=== PATIENT | female | born 1985 | race African-American/Black ===

== ENCOUNTER 2017-06-04 21:10 | Emergency (ER) | payer BC ==
[2017-06-04 21:16] VITALS: BMI 38.4
[2017-06-04] MEDS ORDERED: NS 1000 ML 1,000 ML IV ONE (22:03)
--- NOTE | 2017-06-04 22:03 | DR.GENAD ---
HPI - PCP Primary Care Physician: nfd - Complaint/Symptoms Chief Complaint:: pt states" i went to [facility] on sunday they said i had diverticulosis and gave me cipro flagyl and percocet but i'm still hurting and nauseaed" - Source History Provided: Patient - Mode of Arrival Mode of Arrival: Ambulatory - Timing Onset of Chief Complaint: 05/30/17 PMH - PMH Past Medical History: No Past Surgical History: Yes Surgical History: Cholecystectomy - Family History History of Family Medical Conditions: Yes Family Medical History: Diabetes Mellitus, Cancer, Hypertension - Social History Type of Tobacco Use: Cigars Does any household member use tobacco: No Alcohol Use: Occasionally Do you use any recreational Drugs:: No Lives With: Family Lives Where: Home - infectious screening In the last 2 months have you had wt loss of >10#?: NO Have you had fever, night sweats or hemotysis?: No Have you traveled outside the country in the last 6 months?: No Isolation: Standard ROS - Review of Systems Eyes: No Symptoms Reported ENTM: No Symptoms Reported Respiratoy: No Symptoms Reported Cardiovascular: No Symptoms Reported Gastrointestinal/Abdominal: No Symptoms Reported Genitourinary: No Symptoms Reported Neurological: No Symptoms Reported, Emotional Problems Musculoskeletal: No Symptoms Reported Integumentary: No Symptoms Reported Hematologic/Lymphatic: No Symptoms Reported Endocrine: No Symptoms Reported Psychiatric: No Symptoms Reported All Other Systems: Reviewed and Negative PE - Vital Signs Vitals: Temperature 100 F Pulse Rate [Right Brachial] 96 Pulse Rate 108 Respiratory Rate 16 Blood Pressure [Right Arm] 138/78 Blood Pressure 120/74 O2 Sat by Pulse Oximetry 100 - General Limitations: No Limitations, Language Barrier General Appearance: Alert, In No Apparent Distress - Head Head Exam: Normal Inspection, Atraumatic - Eyes Eye exam: Normal Appearance, PERRL - ENT ENT Exam: Normal Exam External Ear Exam: Normal External Inspection TM/Canal Exam: Bilateral Normal Nose Exam: Normal Nose Exam Mouth Exam: Normal Inspection Throat Exam: Normal Inspection - Chest Chest Inspection: Normal Inspection - Respiratory Respiratory Exam: Normal Lung Sounds Bilat Respiratory Exam: Bilateral Clear to Auscultation - Cardiovascular Cardiovascular Exam: Regular Rate, Normal Rhythm - Abdominal Exam Abdominal Exam: Normal Inspection Abdominal Tenderness: RLQ, LUQ, Diffuse - Extremities Extremities Exam: Normal Inspection - Back Back Exam: Normal Inspection - Neurologic Neurological Exam: Alert, Oriented X3, CN II-XII Intact - Psychiatric Psychiatric Exam: Normal Affect - Skin Skin Exam: Warm, Dry, Intact Course - Reevaluation 1st: Improved - Consultation Called: 02:50 (Dr Moore accepted for transfer) ROR - Labs Reviewed Result Diagrams: 06/04/17 22:10 06/04/17 22:10 Laboratory: WBC 21.6 X10^3/uL (3.6-10.0) H 06/04/17 22:10 RBC 4.28 X10^6/uL (3.5-5.4) 06/04/17 22:10 Hgb 12.7 g/dL (12.0-16.0) 06/04/17 22:10 Hct 37.7 % (36.0-47.0) 06/04/17 22:10 MCV 88.1 fL (80.0-100.0) 06/04/17 22:10 MCH 29.8 pg (27.0-34.0) 06/04/17 22:10 MCHC 33.8 g/dL (33.0-35.0) 06/04/17 22:10 RDW 13.2 % (11.6-16.5) 06/04/17 22:10 Plt Count 302 X10^3/uL (150.0-450.0) 06/04/17 22:10 Plt Count Comment Adequate (ADEQUATE) 06/04/17 22:10 MPV 8.5 fL (7.4-11.0) 06/04/17 22:10 Neut % 82.4 % (42.0-75.0) H 06/04/17 22:10 Lymph % 8.0 % (21.0-51.0) L 06/04/17 22:10 [place] % 8.9 % (0.0-13.0) 06/04/17 22:10 Eos % 0.2 % (0.9-2.9) L 06/04/17 22:10 Baso % 0.5 % (0.2-1.0) 06/04/17 22:10 Neut # 17.8 x10^3/uL (2.2-4.8) H 06/04/17 22:10 Lymph # 1.7 X10^3/uL (1.3-2.9) 06/04/17 22:10 [place] # 1.9 x10^3/uL (0.3-0.8) H 06/04/17 22:10 Eos # 0.0 x10^3/uL (0.0-0.2) 06/04/17 22:10 Baso # 0.1 X10^3/uL (0.0-0.1) 06/04/17 22:10 Absolute Nucleated RBC 0.0 /100WBC 06/04/17 22:10 Total Counted 100 06/04/17 22:10 Neutrophils % (Manual) 80 % (39-76) H 06/04/17 22:10 Band Neutrophils % 5 % (0-10) 06/04/17 22:10 Lymphocytes % (Manual) 9 % (13-43) L 06/04/17 22:10 Monocytes % (Manual) 6 % (4-9) 06/04/17 22:10 Plt Morphology Comment Normal (NORMAL) 06/04/17 22:10 RBC Morphology Normal (NORMAL) 06/04/17 22:10 Sodium 135 mmol/L (136-145) L 06/04/17 22:10 Corrected Sodium TNP 06/04/17 22:10 Potassium 3.8 mmol/L (3.5-5.1) 06/04/17 22:10 Chloride 99 mmol/L (98-107) 06/04/17 22:10 Carbon Dioxide 26.6 mmol/L (21-32) 06/04/17 22:10 BUN 7 mg/dL (7-18) 06/04/17 22:10 Creatinine 0.87 mg/dL (0.55-1.02) 06/04/17 22:10 Est GFR (MDRD) Af Amer > 60 (>60) 06/04/17 22:10 Est GFR (MDRD) Non-Af > 60 (>60) 06/04/17 22:10 Glucose 104 mg/dL (65-99) H 06/04/17 22:10 Calcium 8.9 mg/dL (8.5-10.1) 06/04/17 22:10 Corrected Calcium 9.9 mg/dL (8.5-10.1) 06/04/17 22:10 Total Bilirubin 0.70 mg/dL (0.2-1.0) 06/04/17 22:10 AST 22 Units/L (15-37) 06/04/17 22:10 ALT 41 Units/L (12-78) 06/04/17 22:10 Alkaline Phosphatase 121 Units/L (46-116) H 06/04/17 22:10 C-Reactive Protein 213.50 mg/L (0-3.0) H 06/04/17 22:10 Total Protein 7.9 g/dL (6.4-8.2) 06/04/17 22:10 Albumin 2.8 g/dL (3.4-5.0) L 06/04/17 22:10 Globulin 5.1 g/dL (2.5-4.5) H 06/04/17 22:10 Albumin/Globulin Ratio 0.5 Ratio (1.1-2.1) L 06/04/17 22:10 - XRAY XRAY Interpreted by: Radiologist (KUB: normal chest and abdomen) - Diagnosis Discharge Problem: Diverticulitis of large intestine with abscess without bleeding - Discharge Plan Condition: Stable - Follow ups/Referrals Follow ups/Referrals: NFD,None [Primary Care Provider] - 3 days - Instructions
[2017-06-04] MEDS ORDERED: NS 1000 ML 1,000 ML ONE (22:05)
[2017-06-04] MEDS ORDERED: DILAUDID INJ IVP ONE (22:05)
[2017-06-04] MEDS ORDERED: DILAUDID INJ ONE (22:08)
[2017-06-04 22:22] LABS: BASOPHILS # (AUTO) 0.1 X10^3/uL (0.0-0.1); BASOPHILS % (AUTO) 0.5 % (0.2-1.0); EOSINOPHILS % (AUTO) 0.2 % (0.9-2.9); HEMATOCRIT 37.7 % (36.0-47.0); HEMOGLOBIN 12.7 g/dL (12.0-16.0); LYMPHOCYTES # (AUTO) 1.7 X10^3/uL (1.3-2.9); MEAN CORPUSCULAR HEMOGLOBIN 29.8 pg (27.0-34.0); MEAN CORPUSCULAR HGB CONC 33.8 g/dL (33.0-35.0); MEAN CORPUSCULAR VOLUME 88.1 fL (80.0-100.0); MEAN PLATELET VOLUME 8.5 fL (7.4-11.0); MONOCYTES # (AUTO) 1.9 x10^3/uL (0.3-0.8); MONOCYTES % (AUTO) 8.9 % (0.0-13.0); NEUTROPHILS # (AUTO) 17.8 x10^3/uL (2.2-4.8); NEUTROPHILS % (AUTO) 82.4 % (42.0-75.0); PLATELET COUNT 302 X10^3/uL (150.0-450.0); RED BLOOD COUNT 4.28 X10^6/uL (3.5-5.4); RED CELL DISTRIBUTION WIDTH 13.2 % (11.6-16.5); WHITE BLOOD COUNT 21.6 X10^3/uL (3.6-10.0)
[2017-06-04 22:26] LABS: BAND NEUTROPHILS % 5 % (0-10); PLATELET MORPHOLOGY COMMENT NORMAL (NORMAL)
[2017-06-04 22:32] LABS: ALANINE AMINOTRANSFERASE 41 Units/L (12-78); ALBUMIN 2.8 g/dL (3.4-5.0); ALKALINE PHOSPHATASE 121 Units/L (46-116); ASPARTATE AMINO TRANSFERASE 22 Units/L (15-37); BLOOD UREA NITROGEN 7 mg/dL (7-18); CALCIUM 8.9 mg/dL (8.5-10.1); CARBON DIOXIDE 26.6 mmol/L (21-32); CHLORIDE 99 mmol/L (98-107); COR CA(FOR HYPOALB) 9.9 mg/dL (8.5-10.1); CREATININE 0.87 mg/dL (0.55-1.02); SODIUM 135 mmol/L (136-145); TOTAL PROTEIN 7.9 g/dL (6.4-8.2); eGFR BLACK RACES > 60 (>60); eGFR NON BLACK RACES > 60 (>60)
--- NOTE | 2017-06-04 22:47 | RAD ---
EXAM: Abdomen series and Chest x-ray INDICATION: Abdominal pain COMPARISION: No priors TECHNIQUE: Abdomen flat and upright, two views and PA view of the chest, single view FINDINGS: The lungs are clear. No pneumothorax or pleural effusion. The cardiac silhouette and mediastinum are normal. The bowel gas pattern is nonobstructed. No abnormal mass effect or calcification. The regiona l skeleton is intact. No free air is seen under the hemidiaphragms. IMPRESSION: Normal abdominal series and chest x-ray. Reported By:
[2017-06-05] MEDS ORDERED: NS 100 ML IV 100 ML IV ONE (01:02)
--- NOTE | 2017-06-05 01:53 | CT ---
EXAM: CT ABDOMEN AND PELVIS WITH CONTRAST INDICATION: Diverticulitis COMPARISION: No priors available for comparison TECHNIQUE: Axial CT examination of the abdomen and pelvis was performed with intravenous contrast. The patient r eceived intravenous contrast without adverse reaction. Coronal and sagittal reconstructions were cre ated using the axial data. FINDINGS: The lung bases are clear. The liver, spleen, pancreas, adrenal glands, and kidneys are normal. The ga llbladder has been removed. There is no evidence of biliary ductal dilatation. The aorta and inferio r vena cava are normal in caliber. The bowel loops are nonobstructed. No abnormal mass, lymphadenopathy, or fluid collection. Urinary bladder is normal. There is thickening of the sigmoid colon wall in the left lower quadrant within the left iliac fossa. Adjacent to the colon wall thickening posteriorly is an intramuscular ab scess which includes the anterior aspect of the iliacus muscle and the adjacent psoas muscle. The mul tiloculated abscess measures 4.6 cm in diameter in the iliacus muscle and 2.5 cm in the adjacent psoa s muscle. The regional skeleton is intact. IMPRESSION: Findings are consistent with sigmoid colon diverticulitis with an adjacent multiloculated abscess inv olving the iliacus muscle and psoas muscle in the left iliac fossa. Reported By:
[2017-06-05] MEDS ORDERED: DILAUDID INJ IVP ONE (02:10)
[2017-06-05] MEDS ORDERED: DILAUDID INJ ONE (02:12)
[2017-06-05 02:22] VITALS: BP 136/78
[2017-06-05] MEDS ORDERED: LEVAQUIN PREMIX IV 750 MG 750 MG/150 ML BAG IV ONE ×2 (02:26→02:27)
[2017-06-05] MEDS ORDERED: ZOSYN VIAL 3.375 GM 3.375 GM in NS 100 ML IV + SPIKE MINIBAG* 100 ML IV ONE (03:08)
[2017-06-05] MEDS ORDERED: NS 100 ML IV + SPIKE MINIBAG* 100 ML IV ONE (03:16)
[2017-06-05] MEDS ORDERED: ZOSYN VIAL 3.375 GM IV ONE (03:16)
== END 2017-06-05 03:47 | disposition short-term general hospital (02) ==
LOC: ER 21:23
DX: K57.20 Diverticulitis of large intestine with perforation and abscess without bleeding (principal); R10.31 Right lower quadrant pain
CPT/HCPCS: 36415; 74022; 74177; 80053; 85025; 86140; 96365; 96374; 96375; 99284; 99285; A4222; J1956; J2543

== ENCOUNTER 2017-06-22 18:29 | Emergency (ER) | payer BC ==
[2017-06-22 18:39] VITALS: BMI 38.5
[2017-06-22] MEDS ORDERED: TORADOL 60 MG VIAL IM ONE (19:11)
--- NOTE | 2017-06-22 19:11 | DR.GENAD ---
HPI - PCP Primary Care Physician: nfd - Complaint/Symptoms Chief Complaint Doctors Comments: Patient presents with complaint of bitemporal headache onset this AM. She denies fever or vomiting, had little diarrhea. She also comlains of intermittent leg cramps. Chief Complaint:: headache leg pain unknown knots - Source History Provided: Patient - Mode of Arrival Mode of Arrival: Ambulatory - Timing Onset of Chief Complaint: 06/15/17 PMH - PMH Past Medical History: Yes Past Medical History: Hypertension Past Surgical History: Yes Surgical History: Abdominal Surgery, Cholecystectomy - Family History History of Family Medical Conditions: Yes Family Medical History: Diabetes Mellitus, Cancer, Hypertension - Social History Does patient currently use any type of tobacco product: Yes Have you used tobacco products in the last 12 months: Yes Type of Tobacco Use: Cigars Does any household member use tobacco: No Alcohol Use: Occasionally Do you use any recreational Drugs:: No Lives With: Family Lives Where: Home - infectious screening In the last 2 months have you had wt loss of >10#?: NO Have you had fever, night sweats or hemotysis?: No Have you traveled outside the country in the last 6 months?: No Isolation: Standard ROS - Review of Systems Eyes: No Symptoms Reported ENTM: No Symptoms Reported Respiratoy: No Symptoms Reported Cardiovascular: No Symptoms Reported Gastrointestinal/Abdominal: No Symptoms Reported Genitourinary: No Symptoms Reported Neurological: No Symptoms Reported Musculoskeletal: No Symptoms Reported Integumentary: No Symptoms Reported Hematologic/Lymphatic: No Symptoms Reported Endocrine: No Symptoms Reported Psychiatric: No Symptoms Reported PE - Vital Signs Vitals: Temperature 97.9 F Pulse Rate 90 Respiratory Rate 16 Blood Pressure [Right Arm] 136/78 Blood Pressure 159/94 O2 Sat by Pulse Oximetry 99 - General General Appearance: Alert - Head Head Exam: Normal Inspection, Atraumatic - Eyes Eye exam: Normal Appearance, PERRL, EOMI - ENT ENT Exam: Normal Exam External Ear Exam: Normal External Inspection TM/Canal Exam: Bilateral Normal Nose Exam: Normal Nose Exam Mouth Exam: Normal Inspection Throat Exam: Normal Inspection - Neck Neck Exam: Normal Inspection, Full ROM - Chest Chest Inspection: Normal Inspection - Cardiovascular Cardiovascular Exam: Regular Rate - Abdominal Exam Abdominal Exam: Normal Inspection, Normal Bowel Sounds Abdominal Tenderness: negative: RUQ, RLQ, LUQ, LLQ, Epigastrium, Suprapubic, Diffuse, Mild, Moderate, Severe, Other - Extremities Extremities Exam: Normal Inspection, Full ROM - Back Back Exam: Normal Inspection, Full ROM - Neurologic Neurological Exam: Alert, Oriented X3, CN II-XII Intact - Psychiatric Psychiatric Exam: Normal Affect - Skin Skin Exam: Warm, Dry, Intact, Other (subcutaneous fat pellet right abdomen) - Diagnosis Discharge Problem: Headache Qualifiers: Headache type: unspecified Headache chronicity pattern: acute headache Intractability: not intractable Qualified Code(s): R51 - Headache - Discharge Plan Condition: Stable - Follow ups/Referrals Follow ups/Referrals: NFD,None [Primary Care Provider] - 3 days - Instructions
[2017-06-22] MEDS ORDERED: TORADOL 60 MG VIAL ONE (19:17)
[2017-06-22 19:53] VITALS: BP 147/83
== END 2017-06-22 19:50 | disposition home or self-care (01) ==
LOC: ER 18:43
DX: R51 Headache (principal)
CPT/HCPCS: 96372; 99282; J1885

== ENCOUNTER 2017-08-27 16:12 | Emergency (ER) | payer BC, OTHER ==
[2017-08-27 16:19] VITALS: BMI 40.6
[2017-08-27] MEDS ORDERED: TORADOL 30 MG VIAL IM ONE (18:47)
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
[2017-08-27] MEDS ORDERED: TORADOL 30 MG VIAL ONE (19:06)
--- NOTE | 2017-08-27 19:51 | RAD ---
Examination: Left shoulder, two views History: Recent trauma Findings: No definite fracture or dislocation or articular deformity. The humeral head appears in nor mal position although lateral/orthogonal views were not obtained. Impression: Normal two-view examination left shoulder. See above. Reported By:
[2017-08-27 20:28] VITALS: BP 124/82
== END 2017-08-27 20:28 | disposition home or self-care (01) ==
LOC: ER 16:24
DX: S46.011A Strain of muscle(s) and tendon(s) of the rotator cuff of right shoulder, initial encounter (principal); Y33.XXXA Other specified events, undetermined intent, initial encounter; Y92.9 Unspecified place or not applicable
CPT/HCPCS: 73030; 96372; 99282; J1885

== ENCOUNTER 2019-04-02 15:52 | Inpatient (IN) ==
[2019-04-02] MEDS ORDERED: TORADOL 30 MG VIAL IVP ONE (16:40)
[2019-04-02 16:58] LABS: BASOPHILS % (AUTO) 0.3 % (0.2-1.0); EOSINOPHILS # (AUTO) 0.4 x10^3/uL (0.0-0.2); HEMATOCRIT 35.8 % (36.0-47.0); HEMOGLOBIN 11.7 g/dL (12.0-16.0); MEAN CORPUSCULAR HEMOGLOBIN 27.5 pg (27.0-34.0); MEAN CORPUSCULAR HGB CONC 32.8 g/dL (33.0-35.0); MEAN CORPUSCULAR VOLUME 83.9 fL (80.0-100.0); MEAN PLATELET VOLUME 7.3 fL (7.4-11.0); MONOCYTES # (AUTO) 0.8 x10^3/uL (0.3-0.8); MONOCYTES % (AUTO) 6.4 % (0.0-13.0); NEUTROPHILS # (AUTO) 8.7 x10^3/uL (2.2-4.8); NEUTROPHILS % (AUTO) 73.3 % (42.0-75.0); PLATELET COUNT 390 X10^3/uL (150.0-450.0); RED BLOOD COUNT 4.26 X10^6/uL (3.5-5.4); RED CELL DISTRIBUTION WIDTH 14.7 % (11.6-16.5); WHITE BLOOD COUNT 11.8 X10^3/uL (3.6-10.0)
[2019-04-02 17:11] LABS: ALANINE AMINOTRANSFERASE 22 Units/L (12-78); ALKALINE PHOSPHATASE 122 Units/L (46-116); ASPARTATE AMINO TRANSFERASE 11 Units/L (15-37); BLOOD UREA NITROGEN 11 mg/dL (7-18); CALCIUM 8.4 mg/dL (8.5-10.1); CARBON DIOXIDE 27.8 mmol/L (21-32); CHLORIDE 103 mmol/L (98-107); COR CA(FOR HYPOALB) 9.2 mg/dL (8.5-10.1); SODIUM 138 mmol/L (136-145); TOTAL PROTEIN 7.6 g/dL (6.4-8.2); eGFR NON BLACK RACES > 60 (>60)
--- NOTE | 2019-04-02 17:14 | ED.ABDFE ---
HPI Time Seen Time Seen by Provider: 04/02/19 16:12 PCP Primary Care Physician: NFD Complaint Doctors Chief Complaint Comments: A 34 y/o female presenting with c/o abdominal pain of > 1 week. Location in on Lt. side of abdomen and in suprapubic area. The describes this just as a hurt. There is no nausea or vomiting, fever, diarrhea or dysuria, Chief Complaint:: PT. C/O LOWER & LEFT SIDED ABDOMINAL PAIN. ONSET OF 2 WEEKS WH ICH HAS WORSENED. PT. HAS A HX. OF DIVERTICULITIS. 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 Past Surgical History: Yes Surgical History: and Cholecystectomy Family History History of Family Medical Conditions: Yes Family Medical History: Diabetes Mellitus and Hypertension Social History Does patient currently use any type of tobacco product: Yes Have you used tobacco products in the last 12 months: Yes Type of Tobacco Use: BLACK&MILD Does any household member use tobacco: No Alcohol Use: None Do you use any recreational Drugs:: No Lives With: Family Lives Where: Home infectious screening In the last 2 months have you had wt loss of >10#?: NO Have you had fever, night sweats or hemotysis?: No Have you traveled outside the country in the last 6 months?: No Isolation: Standard ROS Review of Systems Constitutional: No Symptoms Reported Eyes: No Symptoms Reported ENTM: No Symptoms Reported Respiratoy: No Symptoms Reported Cardiovascular: No Symptoms Reported Gastrointestinal/Abdominal: Abdominal Pain; negative No Symptoms Reported, See HPI, Constipation, Diarrhea, Nausea, Vomiting and Food Intolerance Genitourinary: No Symptoms Reported Neurological: No Symptoms Reported Musculoskeletal: No Symptoms Reported Integumentary: No Symptoms Reported Hematologic/Lymphatic: No Symptoms Reported Endocrine: No Symptoms Reported Psychiatric: No Symptoms Reported PE Vital Signs Vitals: Temperature 98.2 F Pulse Rate 88 Respiratory Rate 17 Blood Pressure [Right Arm] 124/82 Blood Pressure 135/86 O2 Sat by Pulse Oximetry 99 General Limitations: No Limitations General Appearance: Alert and In No Apparent Distress Head Head Exam: Normal Inspection, Atraumatic and Normocephalic Eyes Eye exam: Normal Appearance and EOMI ENT ENT Exam: Normal Exam and Mucous Membranes Moist Neck Neck Exam: Normal Inspection, Full ROM and Trachea Midline Chest Chest Inspection: Normal Inspection and Symmetric Chest Wall Rise Respiratory Respiratory Exam: Normal Lung Sounds Bilat Cardiovascular Cardiovascular Exam: Regular Rate, Normal Rhythm, Normal Heart Sounds, +S1 and +S2 Abdominal Exam Abdominal Exam: Normal Inspection, Normal Bowel Sounds, Soft and Tenderness Abdominal Tenderness: LUQ, LLQ and Suprapubic Rectal Rectal Exam: Deferred Back Back Exam: Normal Inspection and Full ROM Extremeties Extremities Exam: Normal Inspection and Full ROM External Exam: Female: Deferred Neurologic Neurological Exam: Alert, Oriented X3 and Normal Gait Psychiatric Psychiatric Exam: Normal Affect and Normal Mood Skin Skin Exam: Dry and Normal Color COURSE Education/Counseling Education/Counseling: Patient, Education and Counseling Educated On: Treatment, Diagnosis, Prognosis and Needs for Follow Up ROR Labs Reviewed Result Diagrams: 04/02/19 16:52 04/02/19 16:52 Laboratory: WBC 11.8 X10^3/uL (3.6-10.0) H 04/02/19 16:52 RBC 4.26 X10^6/uL (3.5-5.4) 04/02/19 16:52 Hgb 11.7 g/dL (12.0-16.0) L 04/02/19 16:52 Hct 35.8 % (36.0-47.0) L 04/02/19 16:52 MCV 83.9 fL (80.0-100.0) 04/02/19 16:52 MCH 27.5 pg (27.0-34.0) 04/02/19 16:52 MCHC 32.8 g/dL (33.0-35.0) L 04/02/19 16:52 RDW 14.7 % (11.6-16.5) 04/02/19 16:52 Plt Count 390 X10^3/uL (150.0-450.0) 04/02/19 16:52 MPV 7.3 fL (7.4-11.0) L 04/02/19 16:52 Neut % (Auto) 73.3 % (42.0-75.0) 04/02/19 16:52 Lymph % (Auto) 17.0 % (21.0-51.0) L 04/02/19 16:52 [place] % (Auto) 6.4 % (0.0-13.0) 04/02/19 16:52 Eos % (Auto) 3.0 % (0.9-2.9) H 04/02/19 16:52 Baso % (Auto) 0.3 % (0.2-1.0) 04/02/19 16:52 Neut # (Auto) 8.7 x10^3/uL (2.2-4.8) H 04/02/19 16:52 Lymph # (Auto) 2.0 X10^3/uL (1.3-2.9) 04/02/19 16:52 [place] # (Auto) 0.8 x10^3/uL (0.3-0.8) 04/02/19 16:52 Eos # (Auto) 0.4 x10^3/uL (0.0-0.2) H 04/02/19 16:52 Baso # (Auto) 0.0 X10^3/uL (0.0-0.1) 04/02/19 16:52 Absolute Nucleated RBC 0.0 /100WBC 04/02/19 16:52 Sodium 138 mmol/L (136-145) 04/02/19 16:52 Corrected Sodium TNP 04/02/19 16:52 Potassium 3.6 mmol/L (3.5-5.1) 04/02/19 16:52 Chloride 103 mmol/L (98-107) 04/02/19 16:52 Carbon Dioxide 27.8 mmol/L (21-32) 04/02/19 16:52 BUN 11 mg/dL (7-18) 04/02/19 16:52 Creatinine 0.80 mg/dL (0.55-1.02) 04/02/19 16:52 Est GFR (MDRD) Af Amer > 60 (>60) 04/02/19 16:52 Est GFR (MDRD) Non-Af > 60 (>60) 04/02/19 16:52 Glucose 92 mg/dL (65-99) 04/02/19 16:52 Calcium 8.4 mg/dL (8.5-10.1) L 04/02/19 16:52 Corrected Calcium 9.2 mg/dL (8.5-10.1) 04/02/19 16:52 Total Bilirubin 0.30 mg/dL (0.2-1.0) 04/02/19 16:52 AST 11 Units/L (15-37) L 04/02/19 16:52 ALT 22 Units/L (12-78) 04/02/19 16:52 Alkaline Phosphatase 122 Units/L (46-116) H 04/02/19 16:52 Total Protein 7.6 g/dL (6.4-8.2) 04/02/19 16:52 Albumin 3.0 g/dL (3.4-5.0) L 04/02/19 16:52 Globulin 4.6 g/dL (2.5-4.5) H 04/02/19 16:52 Albumin/Globulin Ratio 0.7 Ratio (1.1-2.1) L 04/02/19 16:52 Amylase 35 Units/L (25-115) 04/02/19 16:52 Lipase 67 Units/L (73-393) L 04/02/19 16:52 Specimen Type Clean catch urine 04/02/19 16:15 Urine Color Yellow (YELLOW) 04/02/19 16:15 Urine Appearance Clear (CLEAR) 04/02/19 16:15 Urine pH 5.0 (5.0 - 8.0) 04/02/19 16:15 Ur Specific [place] 1.020 (1.000-1.030) 04/02/19 16:15 Urine Protein Negative (NEGATIVE) 04/02/19 16:15 Urine Glucose (UA) Negative (NEGATIVE) 04/02/19 16:15 Urine Ketones Negative (NEGATIVE) 04/02/19 16:15 Urine Occult Blood 1+ (NEGATIVE) 04/02/19 16:15 Urine Nitrite Negative (NEGATIVE) 04/02/19 16:15 Urine Bilirubin Negative (NEGATIVE) 04/02/19 16:15 Urine Urobilinogen Normal (NORMAL) 04/02/19 16:15 Ur Leukocyte Esterase 1+ (NEGATIVE) 04/02/19 16:15 Urine RBC 0-2 /HPF (0-3) 04/02/19 16:15 Urine WBC 0-2 /HPF (0-5) 04/02/19 16:15 Ur Squamous Epith Cells Moderate /HPF (NEGATIVE) 04/02/19 16:15 Urine Bacteria Trace /HPF (NEGATIVE) 04/02/19 16:15 Ur Culture Indicated? No/not indicated 04/02/19 16:15 Other Results Comments: Acute diverticulitis of the descending-sigmoid colon junction with associated LLQ abscess formation. Opioid Opioid Risk Tool Age (Fer box if 16-45): Yes History of Preadolescent Sexual Abuse: No Total: 1 Total Score Risk Category: Low Risk Copyright: Kelby URBINA predicting aberrant behaviors Diagnosis Discharge Problem: Diverticulitis, Abscess of sigmoid colon due to diverticulitis Instructions Forms: Excuse From Work
[2019-04-02] MEDS ORDERED: TORADOL 30 MG VIAL ONE (17:22)
[2019-04-02 17:31] LABS: BILIRUBIN,URINE NEGATIVE (NEGATIVE); BLOOD/HEMOGLOBIN,URINE 1+ (NEGATIVE); GLUCOSE, URINE NEGATIVE (NEGATIVE); KETONES,URINE NEGATIVE (NEGATIVE); LEUKOCYTE ESTERASE ,URINE 1+ (NEGATIVE); NITRITES,URINE NEGATIVE (NEGATIVE); PROTEIN,URINE NEGATIVE (NEGATIVE); UROBILINOGEN,URINE NORMAL (NORMAL)
[2019-04-02 17:47] LABS: AMYLASE 35 Units/L (25-115); LIPASE 67 Units/L (73-393)
[2019-04-02 17:58] LABS: APPEARANCE,URINE CLEAR (CLEAR); BACTERIA,URINE TRACE /HPF (NEGATIVE); COLOR,URINE YELLOW (YELLOW); RBC,URINE 0-2 /HPF (0-3); SQUAMOUS EPITHELIAL CELL,UR MODERATE /HPF (NEGATIVE)
--- NOTE | 2019-04-02 19:33 | CT ---
CT abdomen and pelvis with contrast Indication: Lower and left-sided abdominal pain Technique: Helical CT images of the abdomen and pelvis were obtained with IV contrast. Reformatted images in the coronal and sagittal planes were also generated for review. Comparison: 06/05/2017 Findings: Lung bases are clear. No aggressive osseous lesions. The gallbladder is absent. The liver, spleen, pancreas, adrenals and kidneys are unremarkable. There is diverticulosis of the descending and sigmoid colon. There is moderate thickening of the descending-sigmoid colonic junction with significant pericolonic stranding, compatible with acute diverticulitis. There is an associated adjacent abscess within the left lower quadrant which measures 3.2 x 4.4 x 3.2 cm in AP by transverse by CC dimension on image 60 series 4 and image 30 series 6. No free air is identified. The remainder of the GI tract is without obstruction or inflammation. Appendix is normal. The IVC, abdominal aorta and urinary bladder are normal. Uterus and ovaries are present. No significant free fluid or lymphadenopathy is identified. Impression: Acute diverticulitis of the descending-sigmoid colonic junction, complicated by left lower quadrant abscess formation as above. Reported By:
[2019-04-02] MEDS ORDERED: FLAGYL IV PREMIX 500 MG BAG 500 MG/100 ML BAG IV ONE ×2 (20:22→21:09)
[2019-04-02] MEDS ORDERED: ZOSYN VIAL 3.375 GRAMS 3.375 G in NS 100 ML IV + SPIKE MINIBAG* 100 ML IV ONE (20:22)
[2019-04-02] MEDS ORDERED: DILAUDID INJ IVP ONE (20:23)
[2019-04-02] MEDS ORDERED: DILAUDID INJ ONE (21:10)
[2019-04-02] MEDS ORDERED: ZOSYN VIAL 3.375 GRAMS IV ONE (21:10)
[2019-04-02] MEDS ORDERED: NS 100 ML IV + SPIKE MINIBAG* 100 ML ONE (21:11)
[2019-04-02] MEDS ORDERED: NS 1000 ML 1,000 ML ONE (21:21)
[2019-04-02] MEDS ORDERED: TYLENOL 325 MG TAB PO PRN (21:45)
[2019-04-02] MEDS ORDERED: DILAUDID INJ IVP PRN (21:45)
[2019-04-02] MEDS: NS 1000 ML 1,000 ML IV SCH (21:53)
[2019-04-02] MEDS: ZOSYN VIAL 2.25 GRAMS 2.25 G in NS 100 ML IV + SPIKE MINIBAG* 100 ML IV SCH (22:10)
[2019-04-02] MEDS ORDERED: ZOFRAN INJ 4 MG VIAL ONE (22:57)
[2019-04-02] MEDS: ZOFRAN INJ 4 MG VIAL IVP PRN (23:08)
[2019-04-03] MEDS: FLAGYL IV PREMIX 500 MG BAG 500 MG/100 ML BAG IV SCH ×5 (03:15→20:19)
[2019-04-03 05:32] LABS: BASOPHILS % (AUTO) 0.3 % (0.2-1.0); EOSINOPHILS # (AUTO) 0.2 x10^3/uL (0.0-0.2); EOSINOPHILS % (AUTO) 1.2 % (0.9-2.9); HEMATOCRIT 34.7 % (36.0-47.0); LYMPHOCYTES % (AUTO) 14.4 % (21.0-51.0); MEAN CORPUSCULAR HEMOGLOBIN 26.8 pg (27.0-34.0); MEAN CORPUSCULAR HGB CONC 31.6 g/dL (33.0-35.0); MEAN CORPUSCULAR VOLUME 84.8 fL (80.0-100.0); MONOCYTES # (AUTO) 0.8 x10^3/uL (0.3-0.8); MONOCYTES % (AUTO) 5.8 % (0.0-13.0); NEUTROPHILS # (AUTO) 10.9 x10^3/uL (2.2-4.8); NEUTROPHILS % (AUTO) 78.3 % (42.0-75.0); PLATELET COUNT 372 X10^3/uL (150.0-450.0); RED BLOOD COUNT 4.09 X10^6/uL (3.5-5.4); RED CELL DISTRIBUTION WIDTH 14.2 % (11.6-16.5); WHITE BLOOD COUNT 13.9 X10^3/uL (3.6-10.0)
[2019-04-03 05:55] LABS: ALANINE AMINOTRANSFERASE 18 Units/L (12-78); ALBUMIN 2.5 g/dL (3.4-5.0); ALKALINE PHOSPHATASE 112 Units/L (46-116); ASPARTATE AMINO TRANSFERASE 12 Units/L (15-37); BLOOD UREA NITROGEN 11 mg/dL (7-18); CALCIUM 7.9 mg/dL (8.5-10.1); CARBON DIOXIDE 26.4 mmol/L (21-32); CHLORIDE 104 mmol/L (98-107); COR CA(FOR HYPOALB) 9.1 mg/dL (8.5-10.1); CREATININE 0.75 mg/dL (0.55-1.02); SODIUM 138 mmol/L (136-145); TOTAL PROTEIN 6.8 g/dL (6.4-8.2); eGFR NON BLACK RACES > 60 (>60)
[2019-04-03] MEDS: ZOSYN VIAL 2.25 GRAMS 2.25 G in NS 100 ML IV + SPIKE MINIBAG* 100 ML IV SCH ×3 (06:07→21:09)
--- NOTE | 2019-04-03 06:27 | DR.H&P ---
H&P - History & Physical for Day of: H&P Date: 04/02/19 - Chief Complaint Chief Complaint: LOWER & LEFT SIDED ABDOMINAL PAIN - History of Present Illness History of Present Illness: 34 y/o female ER admission after presenting with c/o abdominal pain of > 1 week. Location in on Lt. side of abdomen and in suprapubic area. The describes this just as a hurt. There is no nausea or vomiting, fever, diarrhea or dysuria. Pt had ct scan revealing acute diverticulitis with abscess formation. Pt admitted for treatment of acute illness, IV antibiotics and surgical consult. - Past Medical History Past Medical History: Hypertension - Past Surgical History Surgical History: Cholecystectomy, - Family History Family Medical History: Diabetes Mellitus, Hypertension - Social History Does patient currently use any type of tobacco product: Yes Have you used tobacco products in the last 12 months: Yes Type of Tobacco Use: Cigars Does any household member use tobacco: No Alcohol Use: Occasionally Drug Use: None - Medications Home Medications: No Known Drug Allergies Allergy (Verified 04/02/19 15:58) CONTINUE taking the following medications NK 04/02/19 [History] - Review of Systems Constitutional: Chills Eyes: No Symptoms Reported ENT: No Symptoms Reported Respiratory: No Symptoms Reported Cardiovascular: No Symptoms Reported Gastrointestinal: Nausea, Vomiting, Abdominal Pain Genitourinary: No Symptoms Reported Musculoskeletal: No Symptoms Reported Skin: No Symptoms Reported Neurological: No Symptoms Reported - Physical Exam Vital Signs: Temperature 97.8 F Pulse Rate [Left Brachial] 81 Pulse Rate 88 Respiratory Rate 18 Blood Pressure [Left Arm] 126/88 Blood Pressure [Right Arm] 147/91 Blood Pressure 135/86 O2 Sat by Pulse Oximetry 100 Oriented: Normal Eyes: Normal Ear: Normal Nose: Normal Throat: Normal Respiratory: Clear Throughout Cardiovascular: Normal : Normal Auscultation: Bowel Sounds: Normal Tenderness: Diffuse Skin: Decreased [place]urgur Musculoskeletal: Normal Psychiatric: Anxiety Affect: Anxious Speech Pattern: Clear, Appropriate - Assessment/Plan (1) Diverticulitis of large intestine with abscess without bleeding Status: Acute Plan: admit, NPO, surgical consult. IV flagyl and zosyn. iv hydration, pain and nausea control (2) Diverticulitis Status: Acute - Allergies Allergies/Adverse Reactions: Allergies Allergy/AdvReac Type Severity Reaction Status Date / Time No Known Drug Allergies Allergy Verified 04/02/19 15:58
[2019-04-03] MEDS ORDERED: MICRO K EXTEN CAP 10 MEQ PO PRN (06:51)
[2019-04-03] MEDS ORDERED: K-RIDER 10 MEQ/NS 100 ML 10 MEQ/100 ML BAG IV PRN (06:51)
[2019-04-03] MEDS ORDERED: POTASSIUM CHL 60 MEQ/NS 0.45% 500 ML IV PRN (06:51)
[2019-04-03] MEDS ORDERED: POTASSIUM CHL 40 MEQ/NS 0.45% 500 ML IV PRN (06:51)
[2019-04-03] MEDS ORDERED: KLOR-CON PO PRN (06:51)
[2019-04-03] MEDS ORDERED: K-DUR TAB 20 MEQ PO PRN (06:51)
[2019-04-03] MEDS ORDERED: POTASSIUM CHLORIDE LIQ 20 MEQ UDC PO PRN (06:51)
[2019-04-03] MEDS: NS 1000 ML 1,000 ML IV SCH ×3 (07:03→21:07)
[2019-04-03 08:00] VITALS: BMI 44.8
[2019-04-03] MEDS ORDERED: NORCO 5/325 MG TAB PO PRN (13:44)
--- NOTE | 2019-04-03 18:22 | PCM.PROG ---
Progress Note - Progress Note for Day of Date of Exam: 04/03/19 - Subjective Subjective: The patient is a 34-year-old female who presented to the emergency room with progressive abdominal pain which was localized to the left lower quadrant with associated nausea and a low grade fever. The patient is known to have recurrent episodes of diverticulitis in the past. She was admitted to the hospital and was found to have diverticula abscess in the past. No surgery was performed on her but she did have a colonoscopy by Dr. Sahni at [place] and apparently the exam was unremarkable. There was no evidence of colitis, inflammatory bowel disease, or other abnormalities. We will obtain her old records. She had a few episodes of loose bowel last week but since then her bowel movement was normal. No rectal bleeding and the pain was getting worse over the past week. Pt is currently on IV Zosyn and Flagyl. Dr Sylvester consulting. - Past Medical Family Social History Past Med/Fam/Surg Hx: No changes since H&P Allergies: Allergies No Known Drug Allergies Allergy (Verified 04/02/19 15:58) - Review of Systems ROS: No change since H&P - Vital Signs and I&O's Vital Signs: Temperature 98.7 F Pulse Rate [Left Brachial] 73 Pulse Rate 88 Respiratory Rate 18 Blood Pressure [Left Arm] 149/78 Blood Pressure [Right Arm] 147/91 Blood Pressure 135/86 O2 Sat by Pulse Oximetry 99 Intake and Output: Intake & Output 04/01/19 04/02/19 04/03/19 04/04/19 11:59 11:59 11:59 11:59 Intake Total 0 / 0 50 / 50 Output Total 0 / 0 Balance 0 / 0 50 / 50 - Physical Exam Oriented: Normal Eyes: Normal Ear: Normal Nose: Normal Throat: Normal Respiratory: Normal Cardiovascular: Normal : Normal Auscultation: Bowel Sounds: Normal Tenderness: Diffuse Skin: Decreased Turgur Musculoskeletal: Normal Psychiatric: Anxiety Affect: Anxious Speech Pattern: Clear, Appropriate - Laboratory and Diagnostics Result Diagrams: 04/03/19 04:26 04/03/19 04:26 Labs: Laboratory WBC 13.9 X10^3/uL (3.6-10.0) H 04/03/19 04:26 RBC 4.09 X10^6/uL (3.5-5.4) 04/03/19 04:26 Hgb 11.0 g/dL (12.0-16.0) L 04/03/19 04:26 Hct 34.7 % (36.0-47.0) L 04/03/19 04:26 MCV 84.8 fL (80.0-100.0) 04/03/19 04:26 MCH 26.8 pg (27.0-34.0) L 04/03/19 04: MCHC 31.6 g/dL (33.0-35.0) L 04/03/19 04:26 RDW 14.2 % (11.6-16.5) 04/03/19 04:26 Plt Count 372 X10^3/uL (150.0-450.0) 04/03/19 04: MPV 8.0 fL (7.4-11.0) 04/03/19 04:26 Neut % (Auto) 78.3 % (42.0-75.0) H 04/03/19 04:26 Lymph % (Auto) 14.4 % (21.0-51.0) L 04/03/19 04:26 [place] % (Auto) 5.8 % (0.0-13.0) 04/03/19 04: Eos % (Auto) 1.2 % (0.9-2.9) 04/03/19 04: Baso % (Auto) 0.3 % (0.2-1.0) 04/03/19 04:26 Neut # (Auto) 10.9 x10^3/uL (2.2-4.8) H 04/03/19 04:26 Lymph # (Auto) 2.0 X10^3/uL (1.3-2.9) 04/03/19 04:26 [place] # (Auto) 0.8 x10^3/uL (0.3-0.8) 04/03/19 04:26 Eos # (Auto) 0.2 x10^3/uL (0.0-0.2) 04/03/19 04:26 Baso # (Auto) 0.0 X10^3/uL (0.0-0.1) 04/03/19 04:26 Absolute Nucleated RBC 0.0 /100WBC 04/03/19 04:26 Sodium 138 mmol/L (136-145) 04/03/19 04:26 Corrected Sodium TNP 04/03/19 04:26 Potassium 3.3 mmol/L (3.5-5.1) L 04/03/19 04:26 Chloride 104 mmol/L (98-107) 04/03/19 04:26 Carbon Dioxide 26.4 mmol/L (21-32) 04/03/19 04:26 BUN 11 mg/dL (7-18) 04/03/19 04:26 Creatinine 0.75 mg/dL (0.55-1.02) 04/03/19 04:26 Est GFR (MDRD) Af Amer > 60 (>60) 04/03/19 04:26 Est GFR (MDRD) Non-Af > 60 (>60) 04/03/19 04:26 Glucose 98 mg/dL (65-99) 04/03/19 04:26 Calcium 7.9 mg/dL (8.5-10.1) L 04/03/19 04:26 Corrected Calcium 9.1 mg/dL (8.5-10.1) 04/03/19 04:26 Magnesium 1.9 mg/dL (1.7-2.9) 04/03/19 04:26 Total Bilirubin 0.40 mg/dL (0.2-1.0) 04/03/19 04:26 AST 12 Units/L (15-37) L 04/03/19 04:26 ALT 18 Units/L (12-78) 04/03/19 04:26 Alkaline Phosphatase 112 Units/L (46-116) 04/03/19 04:26 Total Protein 6.8 g/dL (6.4-8.2) 04/03/19 04:26 Albumin 2.5 g/dL (3.4-5.0) L 04/03/19 04:26 Globulin 4.3 g/dL (2.5-4.5) 04/03/19 04:26 Albumin/Globulin Ratio 0.6 Ratio (1.1-2.1) L 04/03/19 04:26 Amylase 35 Units/L (25-115) 04/02/19 16:52 Lipase 67 Units/L (73-393) L 04/02/19 16:52 Specimen Type Clean catch urine 04/02/19 16:15 Urine Color Yellow (YELLOW) 04/02/19 16:15 Urine Appearance Clear (CLEAR) 04/02/19 16:15 Urine pH 5.0 (5.0 - 8.0) 04/02/19 16:15 Ur Specific [place] 1.020 (1.000-1.030) 04/02/19 16:15 Urine Protein Negative (NEGATIVE) 04/02/19 16:15 Urine Glucose (UA) Negative (NEGATIVE) 04/02/19 16:15 Urine Ketones Negative (NEGATIVE) 04/02/19 16:15 Urine Occult Blood 1+ (NEGATIVE) 04/02/19 16:15 Urine Nitrite Negative (NEGATIVE) 04/02/19 16:15 Urine Bilirubin Negative (NEGATIVE) 04/02/19 16:15 Urine Urobilinogen Normal (NORMAL) 04/02/19 16:15 Ur Leukocyte Esterase 1+ (NEGATIVE) 04/02/19 16:15 Urine RBC 0-2 /HPF (0-3) 04/02/19 16:15 Urine WBC 0-2 /HPF (0-5) 04/02/19 16:15 Ur Squamous Epith Cells Moderate /HPF (NEGATIVE) 04/02/19 16:15 Urine Bacteria Trace /HPF (NEGATIVE) 04/02/19 16:15 Ur Culture Indicated? No/not indicated 04/02/19 16:15 - Plan (1) Diverticulitis of large intestine with abscess without bleeding Status: Acute Plan: NPO, surgical consult. IV flagyl and zosyn. iv hydration, pain and nausea control (2) Diverticulitis Status: Acute
[2019-04-03] MEDS: ZOFRAN INJ 4 MG VIAL IVP PRN (22:34)
[2019-04-04] MEDS: FLAGYL IV PREMIX 500 MG BAG 500 MG/100 ML BAG IV SCH ×4 (03:04→21:09)
[2019-04-04] MEDS: NS 1000 ML 1,000 ML IV SCH ×2 (05:00→13:49)
[2019-04-04] MEDS: ZOSYN VIAL 2.25 GRAMS 2.25 G in NS 100 ML IV + SPIKE MINIBAG* 100 ML IV SCH ×3 (05:00→21:09)
[2019-04-04 05:18] LABS: BASOPHILS # (AUTO) 0.1 X10^3/uL (0.0-0.1); BASOPHILS % (AUTO) 0.6 % (0.2-1.0); EOSINOPHILS # (AUTO) 0.1 x10^3/uL (0.0-0.2); EOSINOPHILS % (AUTO) 0.5 % (0.9-2.9); HEMATOCRIT 32.2 % (36.0-47.0); HEMOGLOBIN 10.4 g/dL (12.0-16.0); LYMPHOCYTES # (AUTO) 2.1 X10^3/uL (1.3-2.9); MEAN CORPUSCULAR HEMOGLOBIN 27.1 pg (27.0-34.0); MEAN CORPUSCULAR HGB CONC 32.4 g/dL (33.0-35.0); MEAN CORPUSCULAR VOLUME 83.8 fL (80.0-100.0); MEAN PLATELET VOLUME 7.6 fL (7.4-11.0); MONOCYTES # (AUTO) 0.7 x10^3/uL (0.3-0.8); MONOCYTES % (AUTO) 6.2 % (0.0-13.0); NEUTROPHILS # (AUTO) 8.3 x10^3/uL (2.2-4.8); NEUTROPHILS % (AUTO) 73.7 % (42.0-75.0); PLATELET COUNT 360 X10^3/uL (150.0-450.0); RED BLOOD COUNT 3.84 X10^6/uL (3.5-5.4); RED CELL DISTRIBUTION WIDTH 14.3 % (11.6-16.5); WHITE BLOOD COUNT 11.3 X10^3/uL (3.6-10.0)
[2019-04-04 05:52] LABS: ALANINE AMINOTRANSFERASE 15 Units/L (12-78); ALBUMIN 2.4 g/dL (3.4-5.0); ALKALINE PHOSPHATASE 105 Units/L (46-116); ASPARTATE AMINO TRANSFERASE 10 Units/L (15-37); BLOOD UREA NITROGEN 7 mg/dL (7-18); CALCIUM 7.8 mg/dL (8.5-10.1); CARBON DIOXIDE 26.2 mmol/L (21-32); CHLORIDE 104 mmol/L (98-107); COR CA(FOR HYPOALB) 9.1 mg/dL (8.5-10.1); CREATININE 0.67 mg/dL (0.55-1.02); SODIUM 137 mmol/L (136-145); TOTAL PROTEIN 6.5 g/dL (6.4-8.2); eGFR NON BLACK RACES > 60 (>60)
--- NOTE | 2019-04-04 08:47 | DR.PROGNOT ---
Hospital Progress Notes - Progress Note for Day of: Progress Note Date: 04/04/19 - Chief Complaint Chief Complaint: feeling better with less abdominal pain , no nausea or vomiting. CT showed recurrent sigmoid diverticulr abscess .. afebrile . WBC 11.3. norml LFT . - Past Medical Family Social History Past Med/Fam/Surg Hx: No changes since H&P Allergies: Allergies No Known Drug Allergies Allergy (Verified 04/02/19 15:58) - Review Of Systems ROS: No change since H&P - Vital Signs Vital Signs: Temperature 97.8 F Pulse Rate [Left Brachial] 79 Pulse Rate 88 Respiratory Rate 19 Blood Pressure [Left Arm] 136/74 Blood Pressure [Right Arm] 147/91 Blood Pressure 135/86 O2 Sat by Pulse Oximetry 100 - Physical Exam Oriented: Normal Eyes: Normal Ear: Normal Nose: Normal Throat: Normal Respiratory: Normal Cardiovascular: Normal : Normal GI:Auscultation: Normal GI: Tenderness: Diffuse, LLQ (moderate LLQ tenderness and mild rebound , BS+) Skin: Decreased Turgur Musculoskeletal: Normal Psychiatric: Anxiety Affect: Anxious Speech Pattern: Clear, Appropriate - Laboratory and Diagnostics Result Diagrams: 04/04/19 04:48 04/04/19 04:48 Labs: Laboratory WBC 11.3 X10^3/uL (3.6-10.0) H 04/04/19 04:48 RBC 3.84 X10^6/uL (3.5-5.4) 04/04/19 04:48 Hgb 10.4 g/dL (12.0-16.0) L 04/04/19 04:48 Hct 32.2 % (36.0-47.0) L 04/04/19 04:48 MCV 83.8 fL (80.0-100.0) 04/04/19 04:48 MCH 27.1 pg (27.0-34.0) 04/04/19 04:48 MCHC 32.4 g/dL (33.0-35.0) L 04/04/19 04:48 RDW 14.3 % (11.6-16.5) 04/04/19 04:48 Plt Count 360 X10^3/uL (150.0-450.0) 04/04/19 04:48 MPV 7.6 fL (7.4-11.0) 04/04/19 04:48 Neut % (Auto) 73.7 % (42.0-75.0) 04/04/19 04:48 Lymph % (Auto) 19.0 % (21.0-51.0) L 04/04/19 04:48 [place] % (Auto) 6.2 % (0.0-13.0) 04/04/19 04:48 Eos % (Auto) 0.5 % (0.9-2.9) L 04/04/19 04:48 Baso % (Auto) 0.6 % (0.2-1.0) 04/04/19 04:48 Neut # (Auto) 8.3 x10^3/uL (2.2-4.8) H 04/04/19 04:48 Lymph # (Auto) 2.1 X10^3/uL (1.3-2.9) 04/04/19 04:48 [place] # (Auto) 0.7 x10^3/uL (0.3-0.8) 04/04/19 04:48 Eos # (Auto) 0.1 x10^3/uL (0.0-0.2) 04/04/19 04:48 Baso # (Auto) 0.1 X10^3/uL (0.0-0.1) 04/04/19 04:48 Absolute Nucleated RBC 0.0 /100WBC 04/04/19 04:48 Sodium 137 mmol/L (136-145) 04/04/19 04:48 Corrected Sodium TNP 04/04/19 04:48 Potassium 3.7 mmol/L (3.5-5.1) 04/04/19 04:48 Chloride 104 mmol/L (98-107) 04/04/19 04:48 Carbon Dioxide 26.2 mmol/L (21-32) 04/04/19 04:48 BUN 7 mg/dL (7-18) 04/04/19 04:48 Creatinine 0.67 mg/dL (0.55-1.02) 04/04/19 04:48 Est GFR (MDRD) Af Amer > 60 (>60) 04/04/19 04:48 Est GFR (MDRD) Non-Af > 60 (>60) 04/04/19 04:48 Glucose 86 mg/dL (65-99) 04/04/19 04:48 Calcium 7.8 mg/dL (8.5-10.1) L 04/04/19 04:48 Corrected Calcium 9.1 mg/dL (8.5-10.1) 04/04/19 04:48 Magnesium 1.9 mg/dL (1.7-2.9) 04/03/19 04:26 Total Bilirubin 0.40 mg/dL (0.2-1.0) 04/04/19 04:48 AST 10 Units/L (15-37) L 04/04/19 04:48 ALT 15 Units/L (12-78) 04/04/19 04:48 Alkaline Phosphatase 105 Units/L (46-116) 04/04/19 04:48 Total Protein 6.5 g/dL (6.4-8.2) 04/04/19 04:48 Albumin 2.4 g/dL (3.4-5.0) L 04/04/19 04:48 Globulin 4.1 g/dL (2.5-4.5) 04/04/19 04:48 Albumin/Globulin Ratio 0.6 Ratio (1.1-2.1) L 04/04/19 04:48 Amylase 35 Units/L (25-115) 04/02/19 16:52 Lipase 67 Units/L (73-393) L 04/02/19 16:52 Specimen Type Clean catch urine 04/02/19 16:15 Urine Color Yellow (YELLOW) 04/02/19 16:15 Urine Appearance Clear (CLEAR) 04/02/19 16:15 Urine pH 5.0 (5.0 - 8.0) 04/02/19 16:15 Ur Specific [place] 1.020 (1.000-1.030) 04/02/19 16:15 Urine Protein Negative (NEGATIVE) 04/02/19 16:15 Urine Glucose (UA) Negative (NEGATIVE) 04/02/19 16:15 Urine Ketones Negative (NEGATIVE) 04/02/19 16:15 Urine Occult Blood 1+ (NEGATIVE) 04/02/19 16:15 Urine Nitrite Negative (NEGATIVE) 04/02/19 16:15 Urine Bilirubin Negative (NEGATIVE) 04/02/19 16:15 Urine Urobilinogen Normal (NORMAL) 04/02/19 16:15 Ur Leukocyte Esterase 1+ (NEGATIVE) 04/02/19 16:15 Urine RBC 0-2 /HPF (0-3) 04/02/19 16:15 Urine WBC 0-2 /HPF (0-5) 04/02/19 16:15 Ur Squamous Epith Cells Moderate /HPF (NEGATIVE) 04/02/19 16:15 Urine Bacteria Trace /HPF (NEGATIVE) 04/02/19 16:15 Ur Culture Indicated? No/not indicated 04/02/19 16:15 - Assessment and Plan 1: acute sigmoid diverticulitis with recurrent abscess . Pt is improving . no need for surgery now . to advance her diet and stay on only liquid for few days . I will follow in the office next week . needs future sigmoid resection . - Problem Patient Problems: Patient Problems Diverticulitis (Acute) K57.92 Abscess of sigmoid colon due to diverticulitis (Acute) K57.20
--- NOTE | 2019-04-04 16:21 | PCM.PROG ---
Progress Note - Progress Note for Day of Date of Exam: 04/04/19 - Subjective Subjective: The patient is a 34-year-old female who presented to the emergency room with progressive abdominal pain which was localized to the left lower quadrant with associated nausea and a low grade fever. The patient is known to have recurrent episodes of diverticulitis in the past. She was admitted to the hospital and was found to have diverticula abscess in the past. No surgery was performed on her but she did have a colonoscopy by Dr. Sahni at [place] and apparently the exam was unremarkable. There was no evidence of colitis, inflammatory bowel disease, or other abnormalities. We will obtain her old records. She had a few episodes of loose bowel last week but since then her bowel movement was normal. No rectal bleeding and the pain was getting worse over the past week. Pt is currently on IV Zosyn and Flagyl. Dr Sylvester consulting. - Past Medical Family Social History Past Med/Fam/Surg Hx: No changes since H&P Allergies: Allergies No Known Drug Allergies Allergy (Verified 04/02/19 15:58) - Review of Systems ROS: No change since H&P - Vital Signs and I&O's Vital Signs: Temperature 97.9 F Pulse Rate [Left Brachial] 75 Pulse Rate 88 Respiratory Rate 18 Blood Pressure [Left Arm] 154/97 Blood Pressure [Right Arm] 147/91 Blood Pressure 135/86 O2 Sat by Pulse Oximetry 99 Intake and Output: Intake & Output 04/02/19 04/03/19 04/04/19 04/05/19 11:59 11:59 11:59 11:59 Intake Total 0 / 0 2130 / 2130 600 / 600 Output Total 0 / 0 0 / 0 Balance 0 / 0 2130 / 2130 600 / 600 - Physical Exam Oriented: Normal Eyes: Normal Ear: Normal Nose: Normal Throat: Normal Respiratory: Normal Cardiovascular: Normal : Normal Auscultation: Bowel Sounds: Normal Tenderness: Diffuse, LLQ (moderate LLQ tenderness and mild rebound , BS+) Skin: Decreased [place]urgur Musculoskeletal: Normal Psychiatric: Anxiety Affect: Anxious Speech Pattern: Clear, Appropriate - Laboratory and Diagnostics Result Diagrams: 04/04/19 04:48 04/04/19 04:48 Labs: Laboratory WBC 11.3 X10^3/uL (3.6-10.0) H 04/04/19 04:48 RBC 3.84 X10^6/uL (3.5-5.4) 04/04/19 04:48 Hgb 10.4 g/dL (12.0-16.0) L 04/04/19 04:48 Hct 32.2 % (36.0-47.0) L 04/04/19 04:48 MCV 83.8 fL (80.0-100.0) 04/04/19 04:48 MCH 27.1 pg (27.0-34.0) 04/04/19 04:48 MCHC 32.4 g/dL (33.0-35.0) L 04/04/19 04:48 RDW 14.3 % (11.6-16.5) 04/04/19 04:48 Plt Count 360 X10^3/uL (150.0-450.0) 04/04/19 04:48 MPV 7.6 fL (7.4-11.0) 04/04/19 04:48 Neut % (Auto) 73.7 % (42.0-75.0) 04/04/19 04:48 Lymph % (Auto) 19.0 % (21.0-51.0) L 04/04/19 04:48 [place] % (Auto) 6.2 % (0.0-13.0) 04/04/19 04:48 Eos % (Auto) 0.5 % (0.9-2.9) L 04/04/19 04:48 Baso % (Auto) 0.6 % (0.2-1.0) 04/04/19 04:48 Neut # (Auto) 8.3 x10^3/uL (2.2-4.8) H 04/04/19 04:48 Lymph # (Auto) 2.1 X10^3/uL (1.3-2.9) 04/04/19 04:48 [place] # (Auto) 0.7 x10^3/uL (0.3-0.8) 04/04/19 04:48 Eos # (Auto) 0.1 x10^3/uL (0.0-0.2) 04/04/19 04:48 Baso # (Auto) 0.1 X10^3/uL (0.0-0.1) 04/04/19 04:48 Absolute Nucleated RBC 0.0 /100WBC 04/04/19 04:48 Sodium 137 mmol/L (136-145) 04/04/19 04:48 Corrected Sodium TNP 04/04/19 04:48 Potassium 3.7 mmol/L (3.5-5.1) 04/04/19 04:48 Chloride 104 mmol/L (98-107) 04/04/19 04:48 Carbon Dioxide 26.2 mmol/L (21-32) 04/04/19 04:48 BUN 7 mg/dL (7-18) 04/04/19 04:48 Creatinine 0.67 mg/dL (0.55-1.02) 04/04/19 04:48 Est GFR (MDRD) Af Amer > 60 (>60) 04/04/19 04:48 Est GFR (MDRD) Non-Af > 60 (>60) 04/04/19 04:48 Glucose 86 mg/dL (65-99) 04/04/19 04:48 Calcium 7.8 mg/dL (8.5-10.1) L 04/04/19 04:48 Corrected Calcium 9.1 mg/dL (8.5-10.1) 04/04/19 04:48 Magnesium 1.9 mg/dL (1.7-2.9) 04/03/19 04:26 Total Bilirubin 0.40 mg/dL (0.2-1.0) 04/04/19 04:48 AST 10 Units/L (15-37) L 04/04/19 04:48 ALT 15 Units/L (12-78) 04/04/19 04:48 Alkaline Phosphatase 105 Units/L (46-116) 04/04/19 04:48 Total Protein 6.5 g/dL (6.4-8.2) 04/04/19 04:48 Albumin 2.4 g/dL (3.4-5.0) L 04/04/19 04:48 Globulin 4.1 g/dL (2.5-4.5) 04/04/19 04:48 Albumin/Globulin Ratio 0.6 Ratio (1.1-2.1) L 04/04/19 04:48 Amylase 35 Units/L (25-115) 04/02/19 16:52 Lipase 67 Units/L (73-393) L 04/02/19 16:52 Specimen Type Clean catch urine 04/02/19 16:15 Urine Color Yellow (YELLOW) 04/02/19 16:15 Urine Appearance Clear (CLEAR) 04/02/19 16:15 Urine pH 5.0 (5.0 - 8.0) 04/02/19 16:15 Ur Specific [place] 1.020 (1.000-1.030) 04/02/19 16:15 Urine Protein Negative (NEGATIVE) 04/02/19 16:15 Urine Glucose (UA) Negative (NEGATIVE) 04/02/19 16:15 Urine Ketones Negative (NEGATIVE) 04/02/19 16:15 Urine Occult Blood 1+ (NEGATIVE) 04/02/19 16:15 Urine Nitrite Negative (NEGATIVE) 04/02/19 16:15 Urine Bilirubin Negative (NEGATIVE) 04/02/19 16:15 Urine Urobilinogen Normal (NORMAL) 04/02/19 16:15 Ur Leukocyte Esterase 1+ (NEGATIVE) 04/02/19 16:15 Urine RBC 0-2 /HPF (0-3) 04/02/19 16:15 Urine WBC 0-2 /HPF (0-5) 04/02/19 16:15 Ur Squamous Epith Cells Moderate /HPF (NEGATIVE) 04/02/19 16:15 Urine Bacteria Trace /HPF (NEGATIVE) 04/02/19 16:15 Ur Culture Indicated? No/not indicated 04/02/19 16:15 - Plan (1) Diverticulitis of large intestine with abscess without bleeding Status: Acute Plan: Dr Sylvester consulting, Plan to advance diet to clear liquids. IV flagyl and zosyn. iv hydration, pain and nausea control (2) Diverticulitis Status: Acute
[2019-04-05] MEDS: FLAGYL IV PREMIX 500 MG BAG 500 MG/100 ML BAG IV SCH ×3 (05:30→14:50)
[2019-04-05 05:56] LABS: BASOPHILS # (AUTO) 0.1 X10^3/uL (0.0-0.1); EOSINOPHILS # (AUTO) 0.2 x10^3/uL (0.0-0.2); EOSINOPHILS % (AUTO) 2.3 % (0.9-2.9); HEMATOCRIT 31.6 % (36.0-47.0); HEMOGLOBIN 10.3 g/dL (12.0-16.0); LYMPHOCYTES # (AUTO) 2.3 X10^3/uL (1.3-2.9); LYMPHOCYTES % (AUTO) 23.1 % (21.0-51.0); MEAN CORPUSCULAR HEMOGLOBIN 27.4 pg (27.0-34.0); MEAN CORPUSCULAR HGB CONC 32.7 g/dL (33.0-35.0); MEAN CORPUSCULAR VOLUME 83.9 fL (80.0-100.0); MONOCYTES # (AUTO) 0.7 x10^3/uL (0.3-0.8); MONOCYTES % (AUTO) 7.2 % (0.0-13.0); NEUTROPHILS # (AUTO) 6.7 x10^3/uL (2.2-4.8); NEUTROPHILS % (AUTO) 66.4 % (42.0-75.0); PLATELET COUNT 337 X10^3/uL (150.0-450.0); RED BLOOD COUNT 3.77 X10^6/uL (3.5-5.4); RED CELL DISTRIBUTION WIDTH 14.3 % (11.6-16.5); WHITE BLOOD COUNT 10.1 X10^3/uL (3.6-10.0)
[2019-04-05] MEDS: ZOSYN VIAL 2.25 GRAMS 2.25 G in NS 100 ML IV + SPIKE MINIBAG* 100 ML IV SCH ×2 (06:00→14:50)
[2019-04-05 06:08] LABS: ALANINE AMINOTRANSFERASE 10 Units/L (12-78); ALBUMIN 2.3 g/dL (3.4-5.0); ALKALINE PHOSPHATASE 96 Units/L (46-116); ASPARTATE AMINO TRANSFERASE 9 Units/L (15-37); BLOOD UREA NITROGEN 5 mg/dL (7-18); CALCIUM 7.6 mg/dL (8.5-10.1); CARBON DIOXIDE 24.2 mmol/L (21-32); CHLORIDE 105 mmol/L (98-107); CREATININE 0.74 mg/dL (0.55-1.02); SODIUM 139 mmol/L (136-145); TOTAL PROTEIN 6.3 g/dL (6.4-8.2); eGFR NON BLACK RACES > 60 (>60)
[2019-04-05] MEDS: NS 1000 ML 1,000 ML IV SCH ×3 (10:21→14:50)
--- NOTE | 2019-04-05 10:47 | RAD ---
Examination: Abdomen series with PA chest, three views History: Pain Comparison abdomen CT, 04/02/2019 Findings: Portable AP chest is unremarkable. Additional supine and semi-erect views of the abdomen demonstrate slight gaseous distention of the colon. There is no evidence for mass, pathologic calcification. Surgical clips right upper quadrant. Impression: Slight nonobstructive colon distention. Postsurgical findings. No definite pneumoperitoneum although a full erect view of the abdomen was not obtained for confident exclusion of free air. Reported By:
[2019-04-05 12:04] VITALS: BP 150/98
== END 2019-04-05 15:30 | disposition home or self-care (01) | DRG 392 ==
LOC: ER 15:54 → MED/SURG 21:45
PROVIDERS: ADMIT Internal Medicine; ATTEND Internal Medicine
DX: K57.20 Diverticulitis of large intestine with perforation and abscess without bleeding; K57.92 Diverticulitis of intestine, part unspecified, without perforation or abscess without bleeding
CPT/HCPCS: 36415; 74022; 74177; 80053; 81001; 82150; 83690; 83735; 85025; 96365; 96374; 96375; 99284; A4222; S0030; J1170; J1885; J2405; J2543; J3480; J3490; J7030; J7050

== ENCOUNTER 2019-06-22 10:19 | Inpatient (IN) ==
[2019-06-22 10:27] VITALS: BMI 44.8
[2019-06-22 10:56] LABS: BILIRUBIN,URINE NEGATIVE (NEGATIVE); BLOOD/HEMOGLOBIN,URINE 2+ (NEGATIVE); GLUCOSE, URINE NEGATIVE (NEGATIVE); KETONES,URINE NEGATIVE (NEGATIVE); LEUKOCYTE ESTERASE ,URINE NEGATIVE (NEGATIVE); NITRITES,URINE NEGATIVE (NEGATIVE); PROTEIN,URINE 1+ (NEGATIVE); UROBILINOGEN,URINE NORMAL (NORMAL)
[2019-06-22 11:04] LABS: APPEARANCE,URINE CLEAR (CLEAR); COLOR,URINE YELLOW (YELLOW)
[2019-06-22 11:05] LABS: BACTERIA,URINE NEGATIVE /HPF (NEGATIVE); SQUAMOUS EPITHELIAL CELL,UR MODERATE /HPF (NEGATIVE)
[2019-06-22 11:06] LABS: MUCUS,URINE FEW /HPF (NEGATIVE)
[2019-06-22] MEDS ORDERED: NS 1000 ML 1,000 ML ONE ×2 (11:14→14:46)
--- NOTE | 2019-06-22 11:18 | ED.ABDFE ---
HPI Time Seen Time Seen by Provider: 06/22/19 11:03 PCP Primary Care Physician: NFD Complaint Doctors Chief Complaint Comments: A 34 y/o female presents with c/o Lt sided abdominal pain x 3 days. It has been constant and described as sharp. She has nausea and states tat she vomited yesterday. She denies fever or dysuria. She relates a hx. of diverticulitis. She has had 3 flare-ups this year already she states. Chief Complaint:: PT C/O LEFT LOWER ABD PAIN FOR A FEW DAYS AGO , PT HAS HX OF DIVERTICULITIS, ( SEVERE PAIN , MCCLENDON COMES AND GOES ) , PT STATES THIS FEELS LIKE A DIVERTICULITIS FLARE UP ,,BR Self Treatment fo Chief Complaint: PERCOCET, Reviewed Nurses Notes Review: Yes Source History Provided: Patient Mode of arrival Mode of Arrival: Ambulatory Timing Onset of Chief Complaint: 06/20/19 Came on: Gradually Duration Since Onset: Constant How lon Duration: Days Location Location: LLQ Severity Severity: Moderate Quality Quality: Sharp Context History of: Abdominal surgery (C/Section) Modifying factors Worsening Factors: Nothing Improving Factors: Nothing Associated signs and symptoms Associated Signs and Symptoms: Nausea and Vomiting PMH PMH Past Medical History: Yes Past Medical History: Hypertension Past Medical History Comment: DIVERTICULITIS, Past Surgical History: Yes Surgical History: and Cholecystectomy Family History History of Family Medical Conditions: Yes Family Medical History: Diabetes Mellitus and Hypertension Social History Does patient currently use any type of tobacco product: Yes Have you used tobacco products in the last 12 months: Yes Type of Tobacco Use: Cigars How many years tobacco product used: 6 Does any household member use tobacco: No Alcohol Use: Occasionally Do you use any recreational Drugs:: No Lives With: Family Lives Where: Home infectious screening In the last 2 months have you had wt loss of >10#?: NO Have you had fever, night sweats or hemotysis?: No Have you traveled outside the country in the last 6 months?: No Isolation: Standard ROS Review of Systems Constitutional: No Symptoms Reported Eyes: No Symptoms Reported ENTM: No Symptoms Reported Respiratoy: No Symptoms Reported Cardiovascular: No Symptoms Reported Gastrointestinal/Abdominal: Abdominal Pain, Nausea and Vomiting Genitourinary: No Symptoms Reported Neurological: No Symptoms Reported Musculoskeletal: No Symptoms Reported Integumentary: No Symptoms Reported Hematologic/Lymphatic: No Symptoms Reported Endocrine: No Symptoms Reported Psychiatric: No Symptoms Reported PE Vital Signs Vitals: Temperature 97.2 F Pulse Rate 87 Respiratory Rate 20 Blood Pressure [Left Arm] 149/89 Blood Pressure 145/83 O2 Sat by Pulse Oximetry 100 General Limitations: No Limitations General Appearance: Alert and In No Apparent Distress Head Head Exam: Normal Inspection, Atraumatic and Normocephalic Eyes Eye exam: Normal Appearance and EOMI ENT ENT Exam: Normal Exam, Normal Oropharynx and Mucous Membranes Moist Neck Neck Exam: Normal Inspection, Full ROM and Trachea Midline Chest Chest Inspection: Normal Inspection and Symmetric Chest Wall Rise Respiratory Respiratory Exam: Normal Lung Sounds Bilat Cardiovascular Cardiovascular Exam: Regular Rate, Normal Rhythm, +S1 and +S2 Abdominal Exam Abdominal Exam: Normal Inspection, Normal Bowel Sounds, Soft and Tenderness Abdominal Tenderness: LUQ and LLQ Rectal Rectal Exam: Deferred Back Back Exam: Normal Inspection and Full ROM Extremeties Extremities Exam: Normal Inspection and Full ROM External Exam: Female: Deferred Neurologic Neurological Exam: Alert and Oriented X3 Psychiatric Psychiatric Exam: Normal Affect and Normal Mood Skin Skin Exam: Dry and Normal Color ROR Labs Reviewed Laboratory Results Reviewed?: Yes Result Diagrams: 06/22/19 11:18 06/22/19 11:18 Laboratory: WBC 12.8 X10^3/uL (3.6-10.0) H 06/22/19 11:18 RBC 4.37 X10^6/uL (3.5-5.4) 06/22/19 11:18 Hgb 11.8 g/dL (12.0-16.0) L 06/22/19 11:18 Hct 36.8 % (36.0-47.0) 06/22/19 11:18 MCV 84.1 fL (80.0-100.0) 06/22/19 11:18 MCH 27.0 pg (27.0-34.0) 06/22/19 11:18 MCHC 32.2 g/dL (33.0-35.0) L 06/22/19 11:18 RDW 15.1 % (11.6-16.5) 06/22/19 11:18 Plt Count 405 X10^3/uL (150.0-450.0) 06/22/19 11:18 MPV 7.6 fL (7.4-11.0) 06/22/19 11:18 Neut % (Auto) 78.8 % (42.0-75.0) H 06/22/19 11:18 Lymph % (Auto) 13.2 % (21.0-51.0) L 06/22/19 11:18 [place] % (Auto) 6.6 % (0.0-13.0) 06/22/19 11:18 Eos % (Auto) 1.0 % (0.9-2.9) 06/22/19 11:18 Baso % (Auto) 0.4 % (0.2-1.0) 06/22/19 11:18 Neut # (Auto) 10.1 x10^3/uL (2.2-4.8) H 06/22/19 11:18 Lymph # (Auto) 1.7 X10^3/uL (1.3-2.9) 06/22/19 11:18 [place] # (Auto) 0.8 x10^3/uL (0.3-0.8) 06/22/19 11:18 Eos # (Auto) 0.1 x10^3/uL (0.0-0.2) 06/22/19 11:18 Baso # (Auto) 0.1 X10^3/uL (0.0-0.1) 06/22/19 11:18 Absolute Nucleated RBC 0.0 /100WBC 06/22/19 11:18 Sodium 141 mmol/L (136-145) 06/22/19 11:18 Corrected Sodium TNP 06/22/19 11:18 Potassium 3.9 mmol/L (3.5-5.1) 06/22/19 11:18 Chloride 103 mmol/L (98-107) 06/22/19 11:18 Carbon Dioxide 32.5 mmol/L (21-32) H 06/22/19 11:18 BUN 13 mg/dL (7-18) 06/22/19 11:18 Creatinine 0.89 mg/dL (0.55-1.02) 06/22/19 11:18 Est GFR (MDRD) Af Amer > 60 (>60) 06/22/19 11:18 Est GFR (MDRD) Non-Af > 60 (>60) 06/22/19 11:18 Glucose 108 mg/dL (65-99) H 06/22/19 11:18 Calcium 8.8 mg/dL (8.5-10.1) 06/22/19 11:18 Corrected Calcium 9.5 mg/dL (8.5-10.1) 06/22/19 11:18 Total Bilirubin 0.20 mg/dL (0.2-1.0) 06/22/19 11:18 AST 10 Units/L (15-37) L 06/22/19 11:18 ALT 19 Units/L (12-78) 06/22/19 11:18 Alkaline Phosphatase 94 Units/L (46-116) 06/22/19 11:18 Total Protein 7.6 g/dL (6.4-8.2) 06/22/19 11:18 Albumin 3.1 g/dL (3.4-5.0) L 06/22/19 11:18 Globulin 4.5 g/dL (2.5-4.5) 06/22/19 11:18 Albumin/Globulin Ratio 0.7 Ratio (1.1-2.1) L 06/22/19 11:18 Specimen Type Clean catch urine 06/22/19 10:46 Urine Color Yellow (YELLOW) 06/22/19 10:46 Urine Appearance Clear (CLEAR) 06/22/19 10:46 Urine pH 6.0 (5.0 - 8.0) 06/22/19 10:46 Ur Specific [place] 1.025 (1.000-1.030) 06/22/19 10:46 Urine Protein 1+ (NEGATIVE) 06/22/19 10:46 Urine Glucose (UA) Negative (NEGATIVE) 06/22/19 10:46 Urine Ketones Negative (NEGATIVE) 06/22/19 10:46 Urine Occult Blood 2+ (NEGATIVE) 06/22/19 10:46 Urine Nitrite Negative (NEGATIVE) 06/22/19 10:46 Urine Bilirubin Negative (NEGATIVE) 06/22/19 10:46 Urine Urobilinogen Normal (NORMAL) 06/22/19 10:46 Ur Leukocyte Esterase Negative (NEGATIVE) 06/22/19 10:46 Urine RBC 3-5 /HPF (0-3) A 06/22/19 10:46 Urine WBC 0-2 /HPF (0-5) 06/22/19 10:46 Ur Squamous Epith Cells Moderate /HPF (NEGATIVE) 06/22/19 10:46 Urine Bacteria Negative /HPF (NEGATIVE) 06/22/19 10:46 Urine Mucus Few /HPF (NEGATIVE) 06/22/19 10:46 Ur Culture Indicated? No/not indicated 06/22/19 10:46 Other Results Comments: Report of CT Scan abdominal/pelvis: findings of sigmoid diverticulitis and adjacent abscess, fairly similar to the previous 2 CTS, however there is increased wall thickening of the sigmoid colon on the current exam. Opioid Opioid Risk Tool Age (Fer box if 16-45): Yes History of Preadolescent Sexual Abuse: No Total: 1 Total Score Risk Category: Low Risk Copyright: Kelby URBINA predicting aberrant behaviors Diagnosis Discharge Problem: Diverticulitis of large intestine with abscess without bleeding
[2019-06-22 11:32] LABS: BASOPHILS # (AUTO) 0.1 X10^3/uL (0.0-0.1); BASOPHILS % (AUTO) 0.4 % (0.2-1.0); EOSINOPHILS # (AUTO) 0.1 x10^3/uL (0.0-0.2); HEMATOCRIT 36.8 % (36.0-47.0); HEMOGLOBIN 11.8 g/dL (12.0-16.0); LYMPHOCYTES # (AUTO) 1.7 X10^3/uL (1.3-2.9); LYMPHOCYTES % (AUTO) 13.2 % (21.0-51.0); MEAN CORPUSCULAR HGB CONC 32.2 g/dL (33.0-35.0); MEAN CORPUSCULAR VOLUME 84.1 fL (80.0-100.0); MEAN PLATELET VOLUME 7.6 fL (7.4-11.0); MONOCYTES # (AUTO) 0.8 x10^3/uL (0.3-0.8); MONOCYTES % (AUTO) 6.6 % (0.0-13.0); NEUTROPHILS # (AUTO) 10.1 x10^3/uL (2.2-4.8); NEUTROPHILS % (AUTO) 78.8 % (42.0-75.0); PLATELET COUNT 405 X10^3/uL (150.0-450.0); RED BLOOD COUNT 4.37 X10^6/uL (3.5-5.4); RED CELL DISTRIBUTION WIDTH 15.1 % (11.6-16.5); WHITE BLOOD COUNT 12.8 X10^3/uL (3.6-10.0)
[2019-06-22] MEDS ORDERED: NS 1000 ML 1,000 ML IV ONE (11:33)
[2019-06-22 11:39] LABS: ALANINE AMINOTRANSFERASE 19 Units/L (12-78); ALBUMIN 3.1 g/dL (3.4-5.0); ALKALINE PHOSPHATASE 94 Units/L (46-116); ASPARTATE AMINO TRANSFERASE 10 Units/L (15-37); BLOOD UREA NITROGEN 13 mg/dL (7-18); CALCIUM 8.8 mg/dL (8.5-10.1); CARBON DIOXIDE 32.5 mmol/L (21-32); CHLORIDE 103 mmol/L (98-107); COR CA(FOR HYPOALB) 9.5 mg/dL (8.5-10.1); CREATININE 0.89 mg/dL (0.55-1.02); SODIUM 141 mmol/L (136-145); TOTAL PROTEIN 7.6 g/dL (6.4-8.2); eGFR NON BLACK RACES > 60 (>60)
[2019-06-22] MEDS ORDERED: NS 100 ML IV 100 ML IV ONE (13:37)
--- NOTE | 2019-06-22 14:35 | CT ---
HISTORY: Abdominal pain Study: CT abdomen and pelvis with contrast Comparison: 04/02/2019, 06/05/2017 Technique: Multiple axial images of the abdomen and pelvis were obtained from the lung bases to the pubic symphysis after the administration of IV contrast. Dose reduction techniques including Automated Exposure Control (AEC) and adjustment of mA and kV were utlized. Findings: Cholecystectomy. Normal appendix. Distal colonic diverticuli are seen. There is short segment thickening and inflammatory change of the proximal sigmoid colon with adjacent 5 cm gas and fluid collection abutting the posterior wall and abutting the left iliacus and psoas muscles. Intrauterine device noted. No generalized pneumoperitoneum or tracking extraluminal gas to suggest non contained perforation. Except as described above, the following organs/tissues were reviewed and found to be without significant abnormality within the limits of the exam: Lung bases, liver, gallbladder, pancreas, spleen, kidneys and ureters, stomach, small and large bowel, peritoneal space, urinary bladder, reproductive organs, major vessels, lymph nodes, bones, regional soft tissues. IMPRESSION: Findings of sigmoid diverticulitis and adjacent abscess, fairly similar to the previous 2 CTs, however there is increased wall thickening of the sigmoid colon on the current exam. Reported By:
[2019-06-22] MEDS ORDERED: FLAGYL IV PREMIX 500 MG BAG 500 MG/100 ML BAG IV ONE ×2 (14:46→14:58)
[2019-06-22] MEDS ORDERED: CIPRO IV 400 MG PREMIX* 400 MG/200 ML IV.SOLN. IV ONE ×3 (14:46→16:21)
[2019-06-22] MEDS: NS 1000 ML 1,000 ML IV SCH (15:00)
[2019-06-22] MEDS ORDERED: TYLENOL 325 MG TAB PO PRN (15:27)
[2019-06-22] MEDS ORDERED: CIPRO IV 400 MG PREMIX* 400 MG/200 ML IV.SOLN. IV SCH ×2 (16:18→21:00)
[2019-06-22] MEDS ORDERED: NUBAIN INJ 10 ONE (16:37)
[2019-06-22] MEDS: NUBAIN INJ 10 IVP PRN ×2 (16:49→22:26)
[2019-06-22] MEDS: FLAGYL IV PREMIX 500 MG BAG 500 MG/100 ML BAG IV SCH (20:46)
[2019-06-23] MEDS: FLAGYL IV PREMIX 500 MG BAG 500 MG/100 ML BAG IV SCH ×4 (02:13→22:15)
[2019-06-23] MEDS: NS 1000 ML 1,000 ML IV SCH ×3 (05:07→16:25)
[2019-06-23 05:09] LABS: BASOPHILS % (AUTO) 0.3 % (0.2-1.0); EOSINOPHILS # (AUTO) 0.1 x10^3/uL (0.0-0.2); EOSINOPHILS % (AUTO) 0.6 % (0.9-2.9); HEMATOCRIT 35.2 % (36.0-47.0); HEMOGLOBIN 11.4 g/dL (12.0-16.0); LYMPHOCYTES % (AUTO) 14.3 % (21.0-51.0); MEAN CORPUSCULAR HEMOGLOBIN 27.1 pg (27.0-34.0); MEAN CORPUSCULAR HGB CONC 32.5 g/dL (33.0-35.0); MEAN CORPUSCULAR VOLUME 83.6 fL (80.0-100.0); MEAN PLATELET VOLUME 7.8 fL (7.4-11.0); MONOCYTES # (AUTO) 1.1 x10^3/uL (0.3-0.8); MONOCYTES % (AUTO) 7.4 % (0.0-13.0); NEUTROPHILS % (AUTO) 77.4 % (42.0-75.0); PLATELET COUNT 354 X10^3/uL (150.0-450.0); RED BLOOD COUNT 4.21 X10^6/uL (3.5-5.4); WHITE BLOOD COUNT 14.2 X10^3/uL (3.6-10.0)
[2019-06-23 05:20] LABS: ALANINE AMINOTRANSFERASE 14 Units/L (12-78); ALBUMIN 2.7 g/dL (3.4-5.0); ALKALINE PHOSPHATASE 88 Units/L (46-116); ASPARTATE AMINO TRANSFERASE 9 Units/L (15-37); BLOOD UREA NITROGEN 6 mg/dL (7-18); CALCIUM 8.1 mg/dL (8.5-10.1); CARBON DIOXIDE 26.1 mmol/L (21-32); CHLORIDE 104 mmol/L (98-107); COR CA(FOR HYPOALB) 9.1 mg/dL (8.5-10.1); CREATININE 0.68 mg/dL (0.55-1.02); SODIUM 139 mmol/L (136-145); eGFR NON BLACK RACES > 60 (>60)
[2019-06-23] MEDS: NUBAIN INJ 10 IVP PRN (08:29)
[2019-06-23] MEDS: CIPRO IV 400 MG PREMIX* 400 MG/200 ML IV.SOLN. IV SCH ×2 (08:30→20:34)
--- NOTE | 2019-06-23 09:42 | DR.PROGNOT ---
Hospital Progress Notes - Progress Note for Day of: Progress Note Date: 06/23/19 - Chief Complaint Chief Complaint: LLQ pain . no nausea or vomiting . CT showed acute diverticulitis with associated small localized abscess . WBC 14.000 today . Pt is afebrile . - Past Medical Family Social History Past Med/Fam/Surg Hx: No changes since H&P Allergies: Allergies No Known Drug Allergies Allergy (Verified 06/22/19 10:20) - Review Of Systems ROS: No change since H&P - Vital Signs Vital Signs: Temperature 98.0 F Pulse Rate [Left] 83 Pulse Rate 87 Respiratory Rate 18 Blood Pressure [Left Arm] 145/82 Blood Pressure 145/83 O2 Sat by Pulse Oximetry 100 - Physical Exam Oriented: Normal Eyes: Normal Nose: Normal Throat: Normal Respiratory: Normal Cardiovascular: Normal : Normal GI:Auscultation: Normal GI: Tenderness: LLQ (soft , obese abdomen with LLQ tenderness with mild rebound , BS+) Speech Pattern: Clear, Appropriate - Laboratory and Diagnostics Result Diagrams: 06/23/19 04:12 06/23/19 04:12 Labs: Laboratory WBC 14.2 X10^3/uL (3.6-10.0) H 06/23/19 04:12 RBC 4.21 X10^6/uL (3.5-5.4) 06/23/19 04:12 Hgb 11.4 g/dL (12.0-16.0) L 06/23/19 04:12 Hct 35.2 % (36.0-47.0) L 06/23/19 04:12 MCV 83.6 fL (80.0-100.0) 06/23/19 04:12 MCH 27.1 pg (27.0-34.0) 06/23/19 04:12 MCHC 32.5 g/dL (33.0-35.0) L 06/23/19 04:12 RDW 15.0 % (11.6-16.5) 06/23/19 04:12 Plt Count 354 X10^3/uL (150.0-450.0) 06/23/19 04:12 MPV 7.8 fL (7.4-11.0) 06/23/19 04:12 Neut % (Auto) 77.4 % (42.0-75.0) H 06/23/19 04:12 Lymph % (Auto) 14.3 % (21.0-51.0) L 06/23/19 04:12 [place] % (Auto) 7.4 % (0.0-13.0) 06/23/19 04:12 Eos % (Auto) 0.6 % (0.9-2.9) L 06/23/19 04:12 Baso % (Auto) 0.3 % (0.2-1.0) 06/23/19 04:12 Neut # (Auto) 11.0 x10^3/uL (2.2-4.8) H 06/23/19 04:12 Lymph # (Auto) 2.0 X10^3/uL (1.3-2.9) 06/23/19 04:12 [place] # (Auto) 1.1 x10^3/uL (0.3-0.8) H 06/23/19 04:12 Eos # (Auto) 0.1 x10^3/uL (0.0-0.2) 06/23/19 04:12 Baso # (Auto) 0.0 X10^3/uL (0.0-0.1) 06/23/19 04:12 Absolute Nucleated RBC 0.0 /100WBC 06/23/19 04:12 Sodium 139 mmol/L (136-145) 06/23/19 04:12 Corrected Sodium TNP 06/23/19 04:12 Potassium 3.5 mmol/L (3.5-5.1) 06/23/19 04:12 Chloride 104 mmol/L (98-107) 06/23/19 04:12 Carbon Dioxide 26.1 mmol/L (21-32) 06/23/19 04:12 BUN 6 mg/dL (7-18) L 06/23/19 04:12 Creatinine 0.68 mg/dL (0.55-1.02) 06/23/19 04:12 Est GFR (MDRD) Af Amer > 60 (>60) 06/23/19 04:12 Est GFR (MDRD) Non-Af > 60 (>60) 06/23/19 04:12 Glucose 109 mg/dL (65-99) H 06/23/19 04:12 Calcium 8.1 mg/dL (8.5-10.1) L 06/23/19 04:12 Corrected Calcium 9.1 mg/dL (8.5-10.1) 06/23/19 04:12 Total Bilirubin 0.50 mg/dL (0.2-1.0) 06/23/19 04:12 AST 9 Units/L (15-37) L 06/23/19 04:12 ALT 14 Units/L (12-78) 06/23/19 04:12 Alkaline Phosphatase 88 Units/L (46-116) 06/23/19 04:12 Total Protein 7.0 g/dL (6.4-8.2) 06/23/19 04:12 Albumin 2.7 g/dL (3.4-5.0) L 06/23/19 04:12 Globulin 4.3 g/dL (2.5-4.5) 06/23/19 04:12 Albumin/Globulin Ratio 0.6 Ratio (1.1-2.1) L 06/23/19 04:12 Specimen Type Clean catch urine 06/22/19 10:46 Urine Color Yellow (YELLOW) 06/22/19 10:46 Urine Appearance Clear (CLEAR) 06/22/19 10:46 Urine pH 6.0 (5.0 - 8.0) 06/22/19 10:46 Ur Specific [place] 1.025 (1.000-1.030) 06/22/19 10:46 Urine Protein 1+ (NEGATIVE) 06/22/19 10:46 Urine Glucose (UA) Negative (NEGATIVE) 06/22/19 10:46 Urine Ketones Negative (NEGATIVE) 06/22/19 10:46 Urine Occult Blood 2+ (NEGATIVE) 06/22/19 10:46 Urine Nitrite Negative (NEGATIVE) 06/22/19 10:46 Urine Bilirubin Negative (NEGATIVE) 06/22/19 10:46 Urine Urobilinogen Normal (NORMAL) 06/22/19 10:46 Ur Leukocyte Esterase Negative (NEGATIVE) 06/22/19 10:46 Urine RBC 3-5 /HPF (0-3) A 06/22/19 10:46 Urine WBC 0-2 /HPF (0-5) 06/22/19 10:46 Ur Squamous Epith Cells Moderate /HPF (NEGATIVE) 06/22/19 10:46 Urine Bacteria Negative /HPF (NEGATIVE) 06/22/19 10:46 Urine Mucus Few /HPF (NEGATIVE) 06/22/19 10:46 Ur Culture Indicated? No/not indicated 06/22/19 10:46 - Assessment and Plan 1: recurrent acute diverticulitis . diverticular abscess . obesity . HTN . to treat the infection now with ATB , NPO today . plan for elective resection in the near future . - Problem Patient Problems: Patient Problems Diverticulitis of large intestine with abscess without bleeding (Acute) K57.20
[2019-06-23] MEDS: ZOFRAN INJ 4 MG VIAL IVP PRN (11:59)
[2019-06-23] MEDS: LOVENOX INJ 40 MG SYR SC SCH (15:31)
[2019-06-24] MEDS: FLAGYL IV PREMIX 500 MG BAG 500 MG/100 ML BAG IV SCH ×4 (02:43→22:12)
[2019-06-24] MEDS: NS 1000 ML 1,000 ML IV SCH ×4 (02:43→23:49)
[2019-06-24] MEDS: CIPRO IV 400 MG PREMIX* 400 MG/200 ML IV.SOLN. IV SCH ×2 (09:05→21:10)
[2019-06-24] MEDS: LOVENOX INJ 40 MG SYR SC SCH (09:05)
--- NOTE | 2019-06-24 12:48 | DR.PROGNOT ---
Hospital Progress Notes - Progress Note for Day of: Progress Note Date: 06/24/19 - Chief Complaint Chief Complaint: LLQ pain is better today . no nausea or vomiting . Pt is afebrile . - Past Medical Family Social History Past Med/Fam/Surg Hx: No changes since H&P Allergies: Allergies No Known Drug Allergies Allergy (Verified 06/22/19 10:20) - Review Of Systems ROS: No change since H&P - Vital Signs Vital Signs: Temperature 98.5 F Pulse Rate [Left] 84 Pulse Rate 87 Respiratory Rate 20 Blood Pressure [Left Arm] 113/72 Blood Pressure 145/83 O2 Sat by Pulse Oximetry 99 - Physical Exam Oriented: Normal Eyes: Normal Nose: Normal Throat: Normal Respiratory: Normal Cardiovascular: Normal : Normal GI:Auscultation: Normal GI: Tenderness: LLQ (soft , obese abdomen with LLQ tenderness with mild rebound , BS+) Speech Pattern: Clear, Appropriate - Laboratory and Diagnostics Result Diagrams: 06/23/19 04:12 06/23/19 04:12 Labs: Laboratory WBC 14.2 X10^3/uL (3.6-10.0) H 06/23/19 04:12 RBC 4.21 X10^6/uL (3.5-5.4) 06/23/19 04:12 Hgb 11.4 g/dL (12.0-16.0) L 06/23/19 04:12 Hct 35.2 % (36.0-47.0) L 06/23/19 04:12 MCV 83.6 fL (80.0-100.0) 06/23/19 04:12 MCH 27.1 pg (27.0-34.0) 06/23/19 04:12 MCHC 32.5 g/dL (33.0-35.0) L 06/23/19 04:12 RDW 15.0 % (11.6-16.5) 06/23/19 04:12 Plt Count 354 X10^3/uL (150.0-450.0) 06/23/19 04:12 MPV 7.8 fL (7.4-11.0) 06/23/19 04:12 Neut % (Auto) 77.4 % (42.0-75.0) H 06/23/19 04:12 Lymph % (Auto) 14.3 % (21.0-51.0) L 06/23/19 04:12 [place] % (Auto) 7.4 % (0.0-13.0) 06/23/19 04:12 Eos % (Auto) 0.6 % (0.9-2.9) L 06/23/19 04:12 Baso % (Auto) 0.3 % (0.2-1.0) 06/23/19 04:12 Neut # (Auto) 11.0 x10^3/uL (2.2-4.8) H 06/23/19 04:12 Lymph # (Auto) 2.0 X10^3/uL (1.3-2.9) 06/23/19 04:12 [place] # (Auto) 1.1 x10^3/uL (0.3-0.8) H 06/23/19 04:12 Eos # (Auto) 0.1 x10^3/uL (0.0-0.2) 06/23/19 04:12 Baso # (Auto) 0.0 X10^3/uL (0.0-0.1) 06/23/19 04:12 Absolute Nucleated RBC 0.0 /100WBC 06/23/19 04:12 Sodium 139 mmol/L (136-145) 06/23/19 04:12 Corrected Sodium TNP 06/23/19 04:12 Potassium 3.5 mmol/L (3.5-5.1) 06/23/19 04:12 Chloride 104 mmol/L (98-107) 06/23/19 04:12 Carbon Dioxide 26.1 mmol/L (21-32) 06/23/19 04:12 BUN 6 mg/dL (7-18) L 06/23/19 04:12 Creatinine 0.68 mg/dL (0.55-1.02) 06/23/19 04:12 Est GFR (MDRD) Af Amer > 60 (>60) 06/23/19 04:12 Est GFR (MDRD) Non-Af > 60 (>60) 06/23/19 04:12 Glucose 109 mg/dL (65-99) H 06/23/19 04:12 Calcium 8.1 mg/dL (8.5-10.1) L 06/23/19 04:12 Corrected Calcium 9.1 mg/dL (8.5-10.1) 06/23/19 04:12 Total Bilirubin 0.50 mg/dL (0.2-1.0) 06/23/19 04:12 AST 9 Units/L (15-37) L 06/23/19 04:12 ALT 14 Units/L (12-78) 06/23/19 04:12 Alkaline Phosphatase 88 Units/L (46-116) 06/23/19 04:12 Total Protein 7.0 g/dL (6.4-8.2) 06/23/19 04:12 Albumin 2.7 g/dL (3.4-5.0) L 06/23/19 04:12 Globulin 4.3 g/dL (2.5-4.5) 06/23/19 04:12 Albumin/Globulin Ratio 0.6 Ratio (1.1-2.1) L 06/23/19 04:12 Specimen Type Clean catch urine 06/22/19 10:46 Urine Color Yellow (YELLOW) 06/22/19 10:46 Urine Appearance Clear (CLEAR) 06/22/19 10:46 Urine pH 6.0 (5.0 - 8.0) 06/22/19 10:46 Ur Specific [place] 1.025 (1.000-1.030) 06/22/19 10:46 Urine Protein 1+ (NEGATIVE) 06/22/19 10:46 Urine Glucose (UA) Negative (NEGATIVE) 06/22/19 10:46 Urine Ketones Negative (NEGATIVE) 06/22/19 10:46 Urine Occult Blood 2+ (NEGATIVE) 06/22/19 10:46 Urine Nitrite Negative (NEGATIVE) 06/22/19 10:46 Urine Bilirubin Negative (NEGATIVE) 06/22/19 10:46 Urine Urobilinogen Normal (NORMAL) 06/22/19 10:46 Ur Leukocyte Esterase Negative (NEGATIVE) 06/22/19 10:46 Urine RBC 3-5 /HPF (0-3) A 06/22/19 10:46 Urine WBC 0-2 /HPF (0-5) 06/22/19 10:46 Ur Squamous Epith Cells Moderate /HPF (NEGATIVE) 06/22/19 10:46 Urine Bacteria Negative /HPF (NEGATIVE) 06/22/19 10:46 Urine Mucus Few /HPF (NEGATIVE) 06/22/19 10:46 Ur Culture Indicated? No/not indicated 06/22/19 10:46 - Assessment and Plan 1: recurrent acute diverticulitis . diverticular abscess . obesity . HTN . same ATB ,. start on clear liquid . maybe discharge in am and repeat the CT as out Pt . will follow in the office.in two weeks . - Problem Patient Problems: Patient Problems Diverticulitis of large intestine with abscess without bleeding (Acute) K57.20
[2019-06-24] MEDS: ZOFRAN INJ 4 MG VIAL IVP PRN (21:20)
[2019-06-25] MEDS: FLAGYL IV PREMIX 500 MG BAG 500 MG/100 ML BAG IV SCH ×2 (02:22→08:52)
[2019-06-25 05:18] LABS: BASOPHILS # (AUTO) 0.1 X10^3/uL (0.0-0.1); BASOPHILS % (AUTO) 0.7 % (0.2-1.0); EOSINOPHILS # (AUTO) 0.1 x10^3/uL (0.0-0.2); EOSINOPHILS % (AUTO) 1.4 % (0.9-2.9); HEMATOCRIT 34.2 % (36.0-47.0); LYMPHOCYTES # (AUTO) 2.8 X10^3/uL (1.3-2.9); LYMPHOCYTES % (AUTO) 28.5 % (21.0-51.0); MEAN CORPUSCULAR HEMOGLOBIN 26.8 pg (27.0-34.0); MEAN CORPUSCULAR HGB CONC 32.2 g/dL (33.0-35.0); MEAN CORPUSCULAR VOLUME 83.1 fL (80.0-100.0); MEAN PLATELET VOLUME 7.9 fL (7.4-11.0); MONOCYTES # (AUTO) 0.7 x10^3/uL (0.3-0.8); MONOCYTES % (AUTO) 7.6 % (0.0-13.0); NEUTROPHILS % (AUTO) 61.8 % (42.0-75.0); PLATELET COUNT 327 X10^3/uL (150.0-450.0); RED BLOOD COUNT 4.11 X10^6/uL (3.5-5.4); RED CELL DISTRIBUTION WIDTH 15.2 % (11.6-16.5); WHITE BLOOD COUNT 9.7 X10^3/uL (3.6-10.0)
[2019-06-25 05:41] LABS: ALANINE AMINOTRANSFERASE 10 Units/L (12-78); ALBUMIN 2.5 g/dL (3.4-5.0); ALKALINE PHOSPHATASE 77 Units/L (46-116); ASPARTATE AMINO TRANSFERASE 9 Units/L (15-37); BLOOD UREA NITROGEN 5 mg/dL (7-18); CALCIUM 7.6 mg/dL (8.5-10.1); CARBON DIOXIDE 24.9 mmol/L (21-32); CHLORIDE 105 mmol/L (98-107); COR CA(FOR HYPOALB) 8.8 mg/dL (8.5-10.1); CREATININE 0.67 mg/dL (0.55-1.02); SODIUM 139 mmol/L (136-145); TOTAL PROTEIN 6.5 g/dL (6.4-8.2); eGFR NON BLACK RACES > 60 (>60)
[2019-06-25] MEDS: NS 1000 ML 1,000 ML IV SCH ×3 (06:15→08:52)
[2019-06-25] MEDS: CIPRO IV 400 MG PREMIX* 400 MG/200 ML IV.SOLN. IV SCH (08:51)
[2019-06-25] MEDS: LOVENOX INJ 40 MG SYR SC SCH (08:52)
[2019-06-25 09:48] VITALS: BP 128/91
== END 2019-06-25 11:55 | disposition home or self-care (01) | DRG 392 ==
LOC: ER 10:19 → MED/SURG 10:19 → OBSVTOIN 15:08 → MED/SURG 15:43
PROVIDERS: ADMIT Obstetrics & Gynecology Obstetrics; ATTEND Obstetrics & Gynecology Obstetrics
DX: E66.9 Obesity, unspecified; I10 Essential (primary) hypertension; K57.20 Diverticulitis of large intestine with perforation and abscess without bleeding
CPT/HCPCS: 36415; 74177; 80053; 81001; 85025; 96365; 96374; 96375; 99284; A4222; S0030; J0744; J1650; J2300; J2405; J3490; J7030; J7050

== ENCOUNTER 2019-09-24 08:32 | Inpatient (IN) ==
[~2019-09-24 08:32] MED LIST: DIPRIVAN VIAL ONE; NEOSTIGMINE INJ ONE; NORCURON INJ 10 MG VIAL ONE; QUELICIN (OR ANECTINE) ONE; ROBINUL ONE; SUPRANE ONE; TORADOL 30 MG VIAL ONE; VERSED ONE; ZOFRAN INJ 4 MG VIAL ONE
[2019-09-24] MEDS ORDERED: ANCEF 1 GRAM IV PREMIX* 2 G/100 ML BAG IV ONE (08:48)
[2019-09-24] MEDS ORDERED: LR 1000 ML IV 1,000 ML IV ONE ×4 (08:48→13:27)
[2019-09-24 09:18] VITALS: BMI 43.3
[2019-09-24] MEDS ORDERED: FENTANYL INJ 250 mcg ONE ×2 (09:18→09:45)
[2019-09-24] MEDS ORDERED: DILAUDID INJ ONE ×2 (09:45→15:16)
[2019-09-24] MEDS ORDERED: DECADRON INJ ONE (09:45)
--- NOTE | 2019-09-24 09:58 | RAD ---
HISTORYPRE-OP COLONSTUDYPortable AP chestCOMPARISONSeptember 2018FINDINGSThe lungs are clear and the heart and mediastinum are unremarkable. There is no edema or effusion or congestion.IMPRESSIONNo evidence for acute cardiopulmonary diseaseElectronically signed by: CARLYLE KNOX (Sep 24, 2019 09:57:33)
[2019-09-24] MEDS ORDERED: FLAGYL IV PREMIX 500 MG BAG 500 MG/100 ML BAG IV ONE (10:11)
[2019-09-24] MEDS ORDERED: POLYMYXIN B SULFATE ONE ×2 (10:15→12:53)
[2019-09-24] MEDS ORDERED: FENTANYL INJ 100 mcg ONE (11:45)
[2019-09-24] MEDS ORDERED: REGLAN INJ 10 MG VIAL IVP PRN (13:53)
[2019-09-24] MEDS ORDERED: ZOFRAN INJ 4 MG VIAL IVP PRN (13:53)
[2019-09-24] MEDS ORDERED: BENADRYL INJ 50 MG VIAL IVP PRN (13:53)
[2019-09-24] MEDS ORDERED: DILAUDID INJ IVP PRN (13:53)
[2019-09-24] MEDS ORDERED: PHENERGAN INJ 25 MG IM PRN (13:53)
[2019-09-24 14:08] LABS: BILIRUBIN,URINE NEGATIVE (NEGATIVE); BLOOD/HEMOGLOBIN,URINE 3+ (NEGATIVE); GLUCOSE, URINE NEGATIVE (NEGATIVE); KETONES,URINE 3+ (NEGATIVE); LEUKOCYTE ESTERASE ,URINE NEGATIVE (NEGATIVE); NITRITES,URINE NEGATIVE (NEGATIVE); PROTEIN,URINE 3+ (NEGATIVE); UROBILINOGEN,URINE NORMAL (NORMAL)
[2019-09-24 14:20] LABS: AMORPHOUS SEDIMENT,UR 2+ /HPF (NEGATIVE); APPEARANCE,URINE CLEAR (CLEAR); BACTERIA,URINE 1+ /HPF (NEGATIVE); COLOR,URINE YELLOW (YELLOW); SQUAMOUS EPITHELIAL CELL,UR MANY /HPF (NEGATIVE)
--- NOTE | 2019-09-24 15:09 | OR.IMMED ---
Immediate Post-Op Note - Immediate Post-Op Note Pre-Op Diagnosis: recurrent diverticulitis with pelvic abscess. Post-Op Diagnosis: localized diverticulitis with LLQ and pelvic abscess . abdominal , pelvic adhesions . Procedure: exploratory laparotomy , lysis of abdominal , pelvic adhesions . resection of distal sigmoid and recto sigmoid with anastomosis using EEA . mobelization of splenic Flexure . Surgeon/Marketing Services Specialist: Nga Specimens Removed: sigment of sigmoid , recto sigmoid . Drains: Saeid Bernal Complications: no complications Condition: Stable (NOP , IVF , IV ATB .and PO care .)
[2019-09-24] MEDS: DILAUDID INJ IVP PRN ×3 (15:24→23:52)
[2019-09-24] MEDS ORDERED: D5 1/2 NS 1000 ML 1,000 ML IV SCH ×2 (16:00→20:00)
[2019-09-24] MEDS ORDERED: D5 1/2 NS 1000 ML 1,000 ML IV NR (16:00)
[2019-09-24] MEDS: FLAGYL IV PREMIX 500 MG BAG 500 MG/100 ML BAG IV SCH (20:07)
[2019-09-24] MEDS: D5 1/2 NS 1000 ML 1,000 ML IV SCH (20:08)
[2019-09-25] MEDS ORDERED: LASIX IVP ONE ×2 (00:05→00:10)
[2019-09-25] MEDS: FLAGYL IV PREMIX 500 MG BAG 500 MG/100 ML BAG IV SCH ×3 (00:18→15:31)
[2019-09-25] MEDS: DILAUDID INJ IVP PRN ×4 (02:58→18:48)
[2019-09-25] MEDS: D5 1/2 NS 1000 ML 1,000 ML IV SCH (04:23)
[2019-09-25] MEDS ORDERED: ZOFRAN INJ 4 MG VIAL IVP PRN (04:53)
[2019-09-25] MEDS ORDERED: ZOFRAN INJ 4 MG VIAL ONE (04:54)
[2019-09-25 06:32] LABS: BASOPHILS % (AUTO) 0.2 % (0.2-1.0); EOSINOPHILS % (AUTO) 0.1 % (0.9-2.9); HEMATOCRIT 36.1 % (36.0-47.0); HEMOGLOBIN 11.8 g/dL (12.0-16.0); LYMPHOCYTES % (AUTO) 15.7 % (21.0-51.0); MEAN CORPUSCULAR HEMOGLOBIN 27.3 pg (27.0-34.0); MEAN CORPUSCULAR HGB CONC 32.5 g/dL (33.0-35.0); MEAN CORPUSCULAR VOLUME 83.8 fL (80.0-100.0); MEAN PLATELET VOLUME 8.3 fL (7.4-11.0); MONOCYTES # (AUTO) 1.2 x10^3/uL (0.3-0.8); MONOCYTES % (AUTO) 9.8 % (0.0-13.0); NEUTROPHILS # (AUTO) 9.5 x10^3/uL (2.2-4.8); NEUTROPHILS % (AUTO) 74.2 % (42.0-75.0); PLATELET COUNT 326 X10^3/uL (150.0-450.0); RED BLOOD COUNT 4.31 X10^6/uL (3.5-5.4); RED CELL DISTRIBUTION WIDTH 15.1 % (11.6-16.5); WHITE BLOOD COUNT 12.8 X10^3/uL (3.6-10.0)
[2019-09-25 07:02] LABS: ALANINE AMINOTRANSFERASE 17 Units/L (12-78); ALBUMIN 2.4 g/dL (3.4-5.0); ALKALINE PHOSPHATASE 83 Units/L (46-116); ASPARTATE AMINO TRANSFERASE 8 Units/L (15-37); BLOOD UREA NITROGEN 7 mg/dL (7-18); CALCIUM 7.8 mg/dL (8.5-10.1); CARBON DIOXIDE 28.1 mmol/L (21-32); CHLORIDE 102 mmol/L (98-107); COR CA(FOR HYPOALB) 9.1 mg/dL (8.5-10.1); COR NA(FOR HYPERGLY) 138 mmol/L (136-145); CREATININE 0.84 mg/dL (0.55-1.02); SODIUM 137 mmol/L (136-145); TOTAL PROTEIN 6.8 g/dL (6.4-8.2); eGFR NON BLACK RACES > 60 (>60)
[2019-09-25] MEDS ORDERED: LR 1000 ML IV 1,000 ML IV ONE ×2 (08:46→16:08)
[2019-09-25] MEDS: LEVAQUIN PREMIX IV 500 MG 500 MG/100 ML BAG IV SCH (08:49)
[2019-09-25] MEDS: PROTONIX INJ 40 MG VIAL IVP SCH (08:50)
[2019-09-25] MEDS: LOVENOX INJ 40 MG SYR SC SCH (08:54)
--- NOTE | 2019-09-25 10:43 | DR.PROGNOT ---
Hospital Progress Notes - Progress Note for Day of: Progress Note Date: 09/25/19 - Chief Complaint Chief Complaint: s/p sigmoid resection and drainage of pelvic abscess post op day 1. low urine out put ( still behind in fluid ) .BUN/Creat normal as well as lytes . K 3.4 WBC 12.7. minimal drainage in M[place] . - Past Medical Family Social History Past Med/Fam/Surg Hx: No changes since H&P Allergies: Allergies No Known Drug Allergies Allergy (Verified 06/22/19 10:20) - Review Of Systems ROS: No change since H&P - Vital Signs Vital Signs: Temperature 98.6 F Pulse Rate [Left Radial] 87 Pulse Rate 94 Respiratory Rate 18 Blood Pressure [Right Arm] 135/80 Blood Pressure 120/70 O2 Sat by Pulse Oximetry 100 - Physical Exam Oriented: Normal Eyes: Normal Ear: Normal Nose: Normal Throat: Normal Respiratory: Normal Cardiovascular: Normal : Normal GI:Auscultation: Decreased GI:Palpation: Normal GI: Tenderness: Diffuse (abdominal tenderness ,BS hypoactive ..) Skin: Normal Musculoskeletal: Normal Mood Description: Calm Speech Pattern: Clear, Appropriate - Laboratory and Diagnostics Result Diagrams: 09/25/19 05:20 09/25/19 05:20 Labs: 09/24/19 10:45 Abdomen Gram Stain - Final 09/24/19 10:45 Abdomen Wound Culture - Preliminary Laboratory WBC 12.8 X10^3/uL (3.6-10.0) H 09/25/19 05:20 RBC 4.31 X10^6/uL (3.5-5.4) 09/25/19 05:20 Hgb 11.8 g/dL (12.0-16.0) L 09/25/19 05:20 Hct 36.1 % (36.0-47.0) 09/25/19 05:20 MCV 83.8 fL (80.0-100.0) 09/25/19 05:20 MCH 27.3 pg (27.0-34.0) 09/25/19 05:20 MCHC 32.5 g/dL (33.0-35.0) L 09/25/19 05:20 RDW 15.1 % (11.6-16.5) 09/25/19 05:20 Plt Count 326 X10^3/uL (150.0-450.0) 09/25/19 05:20 MPV 8.3 fL (7.4-11.0) 09/25/19 05:20 Neut % (Auto) 74.2 % (42.0-75.0) 09/25/19 05:20 Lymph % (Auto) 15.7 % (21.0-51.0) L 09/25/19 05:20 [place] % (Auto) 9.8 % (0.0-13.0) 09/25/19 05:20 Eos % (Auto) 0.1 % (0.9-2.9) L 09/25/19 05:20 Baso % (Auto) 0.2 % (0.2-1.0) 09/25/19 05:20 Neut # (Auto) 9.5 x10^3/uL (2.2-4.8) H 09/25/19 05:20 Lymph # (Auto) 2.0 X10^3/uL (1.3-2.9) 09/25/19 05:20 [place] # (Auto) 1.2 x10^3/uL (0.3-0.8) H 09/25/19 05:20 Eos # (Auto) 0.0 x10^3/uL (0.0-0.2) 09/25/19 05:20 Baso # (Auto) 0.0 X10^3/uL (0.0-0.1) 09/25/19 05:20 Absolute Nucleated RBC 0.0 /100WBC 09/25/19 05:20 Sodium 137 mmol/L (136-145) 09/25/19 05:20 Corrected Sodium 138 mmol/L (136-145) 09/25/19 05:20 Potassium 3.4 mmol/L (3.5-5.1) L 09/25/19 05:20 Chloride 102 mmol/L (98-107) 09/25/19 05:20 Carbon Dioxide 28.1 mmol/L (21-32) 09/25/19 05:20 BUN 7 mg/dL (7-18) 09/25/19 05:20 Creatinine 0.84 mg/dL (0.55-1.02) 09/25/19 05:20 Est GFR (MDRD) Af Amer > 60 (>60) 09/25/19 05:20 Est GFR (MDRD) Non-Af > 60 (>60) 09/25/19 05:20 Glucose 143 mg/dL (65-99) H 09/25/19 05:20 Calcium 7.8 mg/dL (8.5-10.1) L 09/25/19 05:20 Corrected Calcium 9.1 mg/dL (8.5-10.1) 09/25/19 05:20 Total Bilirubin 0.50 mg/dL (0.2-1.0) 09/25/19 05:20 AST 8 Units/L (15-37) L 09/25/19 05:20 ALT 17 Units/L (12-78) 09/25/19 05:20 Alkaline Phosphatase 83 Units/L (46-116) 09/25/19 05:20 Total Protein 6.8 g/dL (6.4-8.2) 09/25/19 05:20 Albumin 2.4 g/dL (3.4-5.0) L 09/25/19 05:20 Globulin 4.4 g/dL (2.5-4.5) 09/25/19 05:20 Albumin/Globulin Ratio 0.5 Ratio (1.1-2.1) L 09/25/19 05:20 Specimen Type Catherized urine 09/24/19 13:15 Urine Color Yellow (YELLOW) 09/24/19 13:15 Urine Appearance Clear (CLEAR) 09/24/19 13:15 Urine pH 5.0 (5.0 - 8.0) 09/24/19 13:15 Ur Specific [place] 1.025 (1.000-1.030) 09/24/19 13:15 Urine Protein 3+ (NEGATIVE) 09/24/19 13:15 Urine Glucose (UA) Negative (NEGATIVE) 09/24/19 13:15 Urine Ketones 3+ (NEGATIVE) 09/24/19 13:15 Urine Occult Blood 3+ (NEGATIVE) 09/24/19 13:15 Urine Nitrite Negative (NEGATIVE) 09/24/19 13:15 Urine Bilirubin Negative (NEGATIVE) 09/24/19 13:15 Urine Urobilinogen Normal (NORMAL) 09/24/19 13:15 Ur Leukocyte Esterase Negative (NEGATIVE) 09/24/19 13:15 Urine RBC 5-10 /HPF (0-3) A 09/24/19 13:15 Urine WBC 3-5 /HPF (0-5) 09/24/19 13:15 Ur Squamous Epith Cells Many /HPF (NEGATIVE) 09/24/19 13:15 Amorphous Sediment 2+ /HPF (NEGATIVE) 09/24/19 13:15 Urine Bacteria 1+ /HPF (NEGATIVE) 09/24/19 13:15 Ur Culture Indicated? No/not indicated 09/24/19 13:15 Tissue Pathology To follow 09/24/19 13:00 - Assessment and Plan 1: post op sigmoid resection , drainage pelvic abscess , lysis of pelvic and abdominal adhesions . . OOB with binder .and same PO care . same IVF at 150 cc/h , IV ATB because of the pelvic abscess .
[2019-09-25] MEDS: LR 1000 ML IV 1,000 ML IV SCH ×2 (11:02→17:14)
[2019-09-26] MEDS: LR 1000 ML IV 1,000 ML IV SCH ×3 (00:17→17:17)
[2019-09-26] MEDS: FLAGYL IV PREMIX 500 MG BAG 500 MG/100 ML BAG IV SCH ×3 (00:17→15:15)
[2019-09-26] MEDS: DILAUDID INJ IVP PRN ×5 (00:18→23:50)
[2019-09-26 06:48] LABS: BASOPHILS % (AUTO) 0.2 % (0.2-1.0); EOSINOPHILS # (AUTO) 0.1 x10^3/uL (0.0-0.2); EOSINOPHILS % (AUTO) 0.5 % (0.9-2.9); HEMATOCRIT 33.4 % (36.0-47.0); HEMOGLOBIN 10.9 g/dL (12.0-16.0); LYMPHOCYTES # (AUTO) 2.3 X10^3/uL (1.3-2.9); LYMPHOCYTES % (AUTO) 16.7 % (21.0-51.0); MEAN CORPUSCULAR HEMOGLOBIN 27.3 pg (27.0-34.0); MEAN CORPUSCULAR HGB CONC 32.5 g/dL (33.0-35.0); MEAN PLATELET VOLUME 8.2 fL (7.4-11.0); MONOCYTES # (AUTO) 1.3 x10^3/uL (0.3-0.8); MONOCYTES % (AUTO) 9.6 % (0.0-13.0); NEUTROPHILS # (AUTO) 10.3 x10^3/uL (2.2-4.8); PLATELET COUNT 266 X10^3/uL (150.0-450.0); RED BLOOD COUNT 3.98 X10^6/uL (3.5-5.4); RED CELL DISTRIBUTION WIDTH 15.6 % (11.6-16.5)
[2019-09-26 06:59] LABS: ALANINE AMINOTRANSFERASE 12 Units/L (12-78); ALBUMIN 2.2 g/dL (3.4-5.0); ALKALINE PHOSPHATASE 79 Units/L (46-116); ASPARTATE AMINO TRANSFERASE 12 Units/L (15-37); BLOOD UREA NITROGEN 5 mg/dL (7-18); CHLORIDE 102 mmol/L (98-107); COR CA(FOR HYPOALB) 9.4 mg/dL (8.5-10.1); SODIUM 137 mmol/L (136-145); TOTAL PROTEIN 6.2 g/dL (6.4-8.2); eGFR NON BLACK RACES > 60 (>60)
[2019-09-26] MEDS: LOVENOX INJ 40 MG SYR SC SCH (08:28)
[2019-09-26] MEDS: PROTONIX INJ 40 MG VIAL IVP SCH (08:28)
[2019-09-26] MEDS: LEVAQUIN PREMIX IV 500 MG 500 MG/100 ML BAG IV SCH (10:00)
--- NOTE | 2019-09-26 13:16 | DR.PROGNOT ---
Hospital Progress Notes - Progress Note for Day of: Progress Note Date: 09/26/19 - Chief Complaint Chief Complaint: s/p sigmoid resection and drainage of pelvic abscess post op day 2. c/o moderate incisional pain . WBC 14.000 K 3.3. minimal drainage in MONTSE . Temp 99.4 - Past Medical Family Social History Past Med/Fam/Surg Hx: No changes since H&P Allergies: Allergies No Known Drug Allergies Allergy (Verified 06/22/19 10:20) - Review Of Systems ROS: No change since H&P - Vital Signs Vital Signs: Temperature 99.5 F Pulse Rate [Left Radial] 98 Pulse Rate 101 Respiratory Rate 18 Blood Pressure [Right Arm] 137/87 Blood Pressure 120/70 O2 Sat by Pulse Oximetry 99 - Physical Exam Oriented: Normal Eyes: Normal Ear: Normal Nose: Normal Throat: Normal Respiratory: Normal Cardiovascular: Normal : Normal GI:Auscultation: Decreased GI:Palpation: Normal GI: Tenderness: Diffuse (abdominal tenderness ,BS hypoactive ..) Skin: Normal Musculoskeletal: Normal Mood Description: Calm Speech Pattern: Clear, Appropriate - Laboratory and Diagnostics Result Diagrams: 09/26/19 05:39 09/26/19 05:33 Labs: 09/24/19 10:45 Abdomen Gram Stain - Final 09/24/19 10:45 Abdomen Wound Culture - Preliminary Escherichia Coli Laboratory WBC 14.0 X10^3/uL (3.6-10.0) H 09/26/19 05:39 RBC 3.98 X10^6/uL (3.5-5.4) 09/26/19 05:39 Hgb 10.9 g/dL (12.0-16.0) L 09/26/19 05:39 Hct 33.4 % (36.0-47.0) L 09/26/19 05:39 MCV 84.0 fL (80.0-100.0) 09/26/19 05:39 MCH 27.3 pg (27.0-34.0) 09/26/19 05:39 MCHC 32.5 g/dL (33.0-35.0) L 09/26/19 05:39 RDW 15.6 % (11.6-16.5) 09/26/19 05:39 Plt Count 266 X10^3/uL (150.0-450.0) 09/26/19 05:39 MPV 8.2 fL (7.4-11.0) 09/26/19 05:39 Neut % (Auto) 73.0 % (42.0-75.0) 09/26/19 05:39 Lymph % (Auto) 16.7 % (21.0-51.0) L 09/26/19 05:39 [place] % (Auto) 9.6 % (0.0-13.0) 09/26/19 05:39 Eos % (Auto) 0.5 % (0.9-2.9) L 09/26/19 05:39 Baso % (Auto) 0.2 % (0.2-1.0) 09/26/19 05:39 Neut # (Auto) 10.3 x10^3/uL (2.2-4.8) H 09/26/19 05:39 Lymph # (Auto) 2.3 X10^3/uL (1.3-2.9) 09/26/19 05:39 [place] # (Auto) 1.3 x10^3/uL (0.3-0.8) H 09/26/19 05:39 Eos # (Auto) 0.1 x10^3/uL (0.0-0.2) 09/26/19 05:39 Baso # (Auto) 0.0 X10^3/uL (0.0-0.1) 09/26/19 05:39 Absolute Nucleated RBC 0.0 /100WBC 09/26/19 05:39 Sodium 137 mmol/L (136-145) 09/26/19 05:33 Corrected Sodium TNP 09/26/19 05:33 Potassium 3.3 mmol/L (3.5-5.1) L 09/26/19 05:33 Chloride 102 mmol/L (98-107) 09/26/19 05:33 Carbon Dioxide 31.0 mmol/L (21-32) 09/26/19 05:33 BUN 5 mg/dL (7-18) L 09/26/19 05:33 Creatinine 0.70 mg/dL (0.55-1.02) 09/26/19 05:33 Est GFR (MDRD) Af Amer > 60 (>60) 09/26/19 05:33 Est GFR (MDRD) Non-Af > 60 (>60) 09/26/19 05:33 Glucose 95 mg/dL (65-99) 09/26/19 05:33 Calcium 8.0 mg/dL (8.5-10.1) L 09/26/19 05:33 Corrected Calcium 9.4 mg/dL (8.5-10.1) 09/26/19 05:33 Total Bilirubin 0.60 mg/dL (0.2-1.0) 09/26/19 05:33 AST 12 Units/L (15-37) L 09/26/19 05:33 ALT 12 Units/L (12-78) 09/26/19 05:33 Alkaline Phosphatase 79 Units/L (46-116) 09/26/19 05:33 Total Protein 6.2 g/dL (6.4-8.2) L 09/26/19 05:33 Albumin 2.2 g/dL (3.4-5.0) L 09/26/19 05:33 Globulin 4.0 g/dL (2.5-4.5) 09/26/19 05:33 Albumin/Globulin Ratio 0.6 Ratio (1.1-2.1) L 09/26/19 05:33 Specimen Type Catherized urine 09/24/19 13:15 Urine Color Yellow (YELLOW) 09/24/19 13:15 Urine Appearance Clear (CLEAR) 09/24/19 13:15 Urine pH 5.0 (5.0 - 8.0) 09/24/19 13:15 Ur Specific [place] 1.025 (1.000-1.030) 09/24/19 13:15 Urine Protein 3+ (NEGATIVE) 09/24/19 13:15 Urine Glucose (UA) Negative (NEGATIVE) 09/24/19 13:15 Urine Ketones 3+ (NEGATIVE) 09/24/19 13:15 Urine Occult Blood 3+ (NEGATIVE) 09/24/19 13:15 Urine Nitrite Negative (NEGATIVE) 09/24/19 13:15 Urine Bilirubin Negative (NEGATIVE) 09/24/19 13:15 Urine Urobilinogen Normal (NORMAL) 09/24/19 13:15 Ur Leukocyte Esterase Negative (NEGATIVE) 09/24/19 13:15 Urine RBC 5-10 /HPF (0-3) A 09/24/19 13:15 Urine WBC 3-5 /HPF (0-5) 09/24/19 13:15 Ur Squamous Epith Cells Many /HPF (NEGATIVE) 09/24/19 13:15 Amorphous Sediment 2+ /HPF (NEGATIVE) 09/24/19 13:15 Urine Bacteria 1+ /HPF (NEGATIVE) 09/24/19 13:15 Ur Culture Indicated? No/not indicated 09/24/19 13:15 Tissue Pathology To follow 09/24/19 13:00 - Assessment and Plan 1: post op sigmoid resection , drainage pelvic abscess , lysis of pelvic and abdominal adhesions . . OOB with binder. to D/C NGT and [place] cath. same IVF at 150 cc/h , IV ATB because of the pelvic abscess .
[2019-09-27] MEDS: FLAGYL IV PREMIX 500 MG BAG 500 MG/100 ML BAG IV SCH (00:12)
[2019-09-27] MEDS: LR 1000 ML IV 1,000 ML IV SCH ×3 (00:12→19:00)
[2019-09-27] MEDS: DILAUDID INJ IVP PRN ×2 (03:49→19:26)
[2019-09-27 06:10] LABS: BASOPHILS % (AUTO) 0.3 % (0.2-1.0); EOSINOPHILS # (AUTO) 0.1 x10^3/uL (0.0-0.2); EOSINOPHILS % (AUTO) 0.9 % (0.9-2.9); HEMATOCRIT 30.8 % (36.0-47.0); HEMOGLOBIN 10.1 g/dL (12.0-16.0); LYMPHOCYTES # (AUTO) 1.6 X10^3/uL (1.3-2.9); LYMPHOCYTES % (AUTO) 13.2 % (21.0-51.0); MEAN CORPUSCULAR HEMOGLOBIN 27.2 pg (27.0-34.0); MEAN CORPUSCULAR HGB CONC 32.8 g/dL (33.0-35.0); MEAN CORPUSCULAR VOLUME 82.9 fL (80.0-100.0); MEAN PLATELET VOLUME 7.8 fL (7.4-11.0); MONOCYTES # (AUTO) 0.8 x10^3/uL (0.3-0.8); MONOCYTES % (AUTO) 6.7 % (0.0-13.0); NEUTROPHILS # (AUTO) 9.6 x10^3/uL (2.2-4.8); NEUTROPHILS % (AUTO) 78.9 % (42.0-75.0); PLATELET COUNT 268 X10^3/uL (150.0-450.0); RED BLOOD COUNT 3.71 X10^6/uL (3.5-5.4); RED CELL DISTRIBUTION WIDTH 15.5 % (11.6-16.5); WHITE BLOOD COUNT 12.1 X10^3/uL (3.6-10.0)
[2019-09-27 06:22] LABS: ALANINE AMINOTRANSFERASE 11 Units/L (12-78); ALBUMIN 2.1 g/dL (3.4-5.0); ALKALINE PHOSPHATASE 74 Units/L (46-116); ASPARTATE AMINO TRANSFERASE 11 Units/L (15-37); BLOOD UREA NITROGEN 6 mg/dL (7-18); CALCIUM 7.9 mg/dL (8.5-10.1); CARBON DIOXIDE 30.8 mmol/L (21-32); CHLORIDE 101 mmol/L (98-107); COR CA(FOR HYPOALB) 9.4 mg/dL (8.5-10.1); SODIUM 137 mmol/L (136-145); eGFR NON BLACK RACES > 60 (>60)
--- NOTE | 2019-09-27 08:53 | DR.PROGNOT ---
Hospital Progress Notes - Progress Note for Day of: Progress Note Date: 09/27/19 - Chief Complaint Chief Complaint: s/p sigmoid resection and drainage of pelvic abscess post op day 3. c/o moderate incisional pain . no BM yet . WBC 12.000 K 3.3. minimal drainage in MONTSE . Temp 98.4 - Past Medical Family Social History Past Med/Fam/Surg Hx: No changes since H&P Allergies: Allergies No Known Drug Allergies Allergy (Verified 06/22/19 10:20) - Review Of Systems ROS: No change since H&P - Vital Signs Vital Signs: Temperature 98.6 F Pulse Rate [Left Radial] 100 Pulse Rate 101 Respiratory Rate 18 Blood Pressure [Right Arm] 161/99 Blood Pressure 120/70 O2 Sat by Pulse Oximetry 100 - Physical Exam Oriented: Normal Eyes: Normal Ear: Normal Nose: Normal Throat: Normal Respiratory: Normal Cardiovascular: Normal : Normal GI:Auscultation: Decreased GI:Palpation: Normal GI: Tenderness: Diffuse (abdominal tenderness ,BS hypoactive ..) Skin: Normal Musculoskeletal: Normal Mood Description: Calm Speech Pattern: Clear, Appropriate - Laboratory and Diagnostics Result Diagrams: 09/27/19 05:45 09/27/19 05:45 Labs: 09/24/19 10:45 Abdomen Gram Stain - Final 09/24/19 10:45 Abdomen Wound Culture - Preliminary Escherichia Coli Laboratory WBC 12.1 X10^3/uL (3.6-10.0) H 09/27/19 05:45 RBC 3.71 X10^6/uL (3.5-5.4) 09/27/19 05:45 Hgb 10.1 g/dL (12.0-16.0) L 09/27/19 05:45 Hct 30.8 % (36.0-47.0) L 09/27/19 05:45 MCV 82.9 fL (80.0-100.0) 09/27/19 05:45 MCH 27.2 pg (27.0-34.0) 09/27/19 05:45 MCHC 32.8 g/dL (33.0-35.0) L 09/27/19 05:45 RDW 15.5 % (11.6-16.5) 09/27/19 05:45 Plt Count 268 X10^3/uL (150.0-450.0) 09/27/19 05:45 MPV 7.8 fL (7.4-11.0) 09/27/19 05:45 Neut % (Auto) 78.9 % (42.0-75.0) H 09/27/19 05:45 Lymph % (Auto) 13.2 % (21.0-51.0) L 09/27/19 05:45 [place] % (Auto) 6.7 % (0.0-13.0) 09/27/19 05:45 Eos % (Auto) 0.9 % (0.9-2.9) 09/27/19 05:45 Baso % (Auto) 0.3 % (0.2-1.0) 09/27/19 05:45 Neut # (Auto) 9.6 x10^3/uL (2.2-4.8) H 09/27/19 05:45 Lymph # (Auto) 1.6 X10^3/uL (1.3-2.9) 09/27/19 05:45 [place] # (Auto) 0.8 x10^3/uL (0.3-0.8) 09/27/19 05:45 Eos # (Auto) 0.1 x10^3/uL (0.0-0.2) 09/27/19 05:45 Baso # (Auto) 0.0 X10^3/uL (0.0-0.1) 09/27/19 05:45 Absolute Nucleated RBC 0.0 /100WBC 09/27/19 05:45 Sodium 137 mmol/L (136-145) 09/27/19 05:45 Corrected Sodium TNP 09/27/19 05:45 Potassium 3.3 mmol/L (3.5-5.1) L 09/27/19 05:45 Chloride 101 mmol/L (98-107) 09/27/19 05:45 Carbon Dioxide 30.8 mmol/L (21-32) 09/27/19 05:45 BUN 6 mg/dL (7-18) L 09/27/19 05:45 Creatinine 0.70 mg/dL (0.55-1.02) 09/27/19 05:45 Est GFR (MDRD) Af Amer > 60 (>60) 09/27/19 05:45 Est GFR (MDRD) Non-Af > 60 (>60) 09/27/19 05:45 Glucose 94 mg/dL (65-99) 09/27/19 05:45 Calcium 7.9 mg/dL (8.5-10.1) L 09/27/19 05:45 Corrected Calcium 9.4 mg/dL (8.5-10.1) 09/27/19 05:45 Total Bilirubin 0.40 mg/dL (0.2-1.0) 09/27/19 05:45 AST 11 Units/L (15-37) L 09/27/19 05:45 ALT 11 Units/L (12-78) L 09/27/19 05:45 Alkaline Phosphatase 74 Units/L (46-116) 09/27/19 05:45 Total Protein 6.0 g/dL (6.4-8.2) L 09/27/19 05:45 Albumin 2.1 g/dL (3.4-5.0) L 09/27/19 05:45 Globulin 3.9 g/dL (2.5-4.5) 09/27/19 05:45 Albumin/Globulin Ratio 0.5 Ratio (1.1-2.1) L 09/27/19 05:45 Specimen Type Catherized urine 09/24/19 13:15 Urine Color Yellow (YELLOW) 09/24/19 13:15 Urine Appearance Clear (CLEAR) 09/24/19 13:15 Urine pH 5.0 (5.0 - 8.0) 09/24/19 13:15 Ur Specific [place] 1.025 (1.000-1.030) 09/24/19 13:15 Urine Protein 3+ (NEGATIVE) 09/24/19 13:15 Urine Glucose (UA) Negative (NEGATIVE) 09/24/19 13:15 Urine Ketones 3+ (NEGATIVE) 09/24/19 13:15 Urine Occult Blood 3+ (NEGATIVE) 09/24/19 13:15 Urine Nitrite Negative (NEGATIVE) 09/24/19 13:15 Urine Bilirubin Negative (NEGATIVE) 09/24/19 13:15 Urine Urobilinogen Normal (NORMAL) 09/24/19 13:15 Ur Leukocyte Esterase Negative (NEGATIVE) 09/24/19 13:15 Urine RBC 5-10 /HPF (0-3) A 09/24/19 13:15 Urine WBC 3-5 /HPF (0-5) 09/24/19 13:15 Ur Squamous Epith Cells Many /HPF (NEGATIVE) 09/24/19 13:15 Amorphous Sediment 2+ /HPF (NEGATIVE) 09/24/19 13:15 Urine Bacteria 1+ /HPF (NEGATIVE) 09/24/19 13:15 Ur Culture Indicated? No/not indicated 09/24/19 13:15 Tissue Pathology To follow 09/24/19 13:00 - Assessment and Plan 1: post op sigmoid resection , drainage pelvic abscess , lysis of pelvic and abdominal adhesions . . OOB with binder. tolerating clear liquid. same IVF at 125 cc/h. to d/c IV ATB .. on liquid diet ..
[2019-09-27] MEDS: LOVENOX INJ 40 MG SYR SC SCH (09:23)
[2019-09-27] MEDS: PROTONIX INJ 40 MG VIAL IVP SCH (09:24)
[2019-09-28] MEDS: LR 1000 ML IV 1,000 ML IV SCH ×4 (02:39→17:37)
[2019-09-28 06:23] LABS: BASOPHILS % (AUTO) 0.3 % (0.2-1.0); EOSINOPHILS # (AUTO) 0.3 x10^3/uL (0.0-0.2); EOSINOPHILS % (AUTO) 2.2 % (0.9-2.9); HEMATOCRIT 29.5 % (36.0-47.0); HEMOGLOBIN 9.6 g/dL (12.0-16.0); LYMPHOCYTES # (AUTO) 2.7 X10^3/uL (1.3-2.9); LYMPHOCYTES % (AUTO) 23.4 % (21.0-51.0); MEAN CORPUSCULAR HEMOGLOBIN 27.1 pg (27.0-34.0); MEAN CORPUSCULAR HGB CONC 32.4 g/dL (33.0-35.0); MEAN CORPUSCULAR VOLUME 83.7 fL (80.0-100.0); MEAN PLATELET VOLUME 7.8 fL (7.4-11.0); MONOCYTES # (AUTO) 0.8 x10^3/uL (0.3-0.8); MONOCYTES % (AUTO) 7.2 % (0.0-13.0); NEUTROPHILS # (AUTO) 7.7 x10^3/uL (2.2-4.8); NEUTROPHILS % (AUTO) 66.9 % (42.0-75.0); PLATELET COUNT 272 X10^3/uL (150.0-450.0); RED BLOOD COUNT 3.53 X10^6/uL (3.5-5.4); RED CELL DISTRIBUTION WIDTH 15.3 % (11.6-16.5); WHITE BLOOD COUNT 11.5 X10^3/uL (3.6-10.0)
[2019-09-28 06:44] LABS: ALANINE AMINOTRANSFERASE 10 Units/L (12-78); ALBUMIN 1.9 g/dL (3.4-5.0); ALKALINE PHOSPHATASE 78 Units/L (46-116); ASPARTATE AMINO TRANSFERASE 9 Units/L (15-37); BLOOD UREA NITROGEN 7 mg/dL (7-18); CALCIUM 7.9 mg/dL (8.5-10.1); CARBON DIOXIDE 29.8 mmol/L (21-32); CHLORIDE 103 mmol/L (98-107); COR CA(FOR HYPOALB) 9.6 mg/dL (8.5-10.1); CREATININE 0.65 mg/dL (0.55-1.02); SODIUM 140 mmol/L (136-145); TOTAL PROTEIN 5.7 g/dL (6.4-8.2); eGFR NON BLACK RACES > 60 (>60)
[2019-09-28] MEDS ORDERED: POTASSIUM CHL 40 MEQ/NS 0.45% 500 ML IV PRN (06:57)
[2019-09-28] MEDS ORDERED: MAGNESIUM SULFATE 1 GRAM/100 mL PREMIX 1 GM/100 ML BAG IV PRN (06:57)
[2019-09-28] MEDS ORDERED: KLOR-CON PO PRN (06:57)
[2019-09-28] MEDS ORDERED: K-RIDER 10 MEQ/NS 100 ML 10 MEQ/100 ML BAG IV PRN (06:57)
[2019-09-28] MEDS ORDERED: MICRO K EXTEN CAP 10 MEQ PO PRN (06:57)
[2019-09-28] MEDS ORDERED: POTASSIUM CHL 60 MEQ/NS 0.45% 500 ML IV PRN (06:57)
[2019-09-28] MEDS ORDERED: POTASSIUM CHLORIDE LIQ 20 MEQ UDC PO PRN (06:57)
[2019-09-28] MEDS: PROTONIX INJ 40 MG VIAL IVP SCH (08:46)
[2019-09-28] MEDS: K-DUR TAB 20 MEQ PO PRN ×3 (08:46→22:13)
[2019-09-28] MEDS: LOVENOX INJ 40 MG SYR SC SCH (08:47)
--- NOTE | 2019-09-28 09:34 | DR.PROGNOT ---
Hospital Progress Notes - Progress Note for Day of: Progress Note Date: 09/28/19 - Chief Complaint Chief Complaint: s/p sigmoid resection and drainage of pelvic abscess post op day 4. c/o mild incisional pain . had small BM . WBC 12.000 K 3.3. MONTSE was removed . Temp 99.6 - Past Medical Family Social History Past Med/Fam/Surg Hx: No changes since H&P Allergies: Allergies No Known Drug Allergies Allergy (Verified 06/22/19 10:20) - Review Of Systems ROS: No change since H&P - Vital Signs Vital Signs: Temperature 99.6 F Pulse Rate [Left Radial] 92 Pulse Rate 101 Respiratory Rate 20 Blood Pressure [Right Arm] 146/83 Blood Pressure 120/70 O2 Sat by Pulse Oximetry 100 - Physical Exam Oriented: Normal Eyes: Normal Ear: Normal Nose: Normal Throat: Normal Respiratory: Normal Cardiovascular: Normal : Normal GI:Auscultation: Decreased GI:Palpation: Normal GI: Tenderness: Diffuse (soft,flat abdomen , BS+) Skin: Normal Musculoskeletal: Normal Mood Description: Calm Speech Pattern: Clear, Appropriate - Laboratory and Diagnostics Result Diagrams: 09/28/19 05:22 09/28/19 05:22 Labs: 09/24/19 10:45 Abdomen Gram Stain - Final 09/24/19 10:45 Abdomen Wound Culture - Final Acinetobacter Baumanii/Haemoly Escherichia Coli Laboratory WBC 11.5 X10^3/uL (3.6-10.0) H 09/28/19 05:22 RBC 3.53 X10^6/uL (3.5-5.4) 09/28/19 05:22 Hgb 9.6 g/dL (12.0-16.0) L 09/28/19 05:22 Hct 29.5 % (36.0-47.0) L 09/28/19 05:22 MCV 83.7 fL (80.0-100.0) 09/28/19 05:22 MCH 27.1 pg (27.0-34.0) 09/28/19 05:22 MCHC 32.4 g/dL (33.0-35.0) L 09/28/19 05:22 RDW 15.3 % (11.6-16.5) 09/28/19 05:22 Plt Count 272 X10^3/uL (150.0-450.0) 09/28/19 05:22 MPV 7.8 fL (7.4-11.0) 09/28/19 05:22 Neut % (Auto) 66.9 % (42.0-75.0) 09/28/19 05:22 Lymph % (Auto) 23.4 % (21.0-51.0) 09/28/19 05:22 [place] % (Auto) 7.2 % (0.0-13.0) 09/28/19 05:22 Eos % (Auto) 2.2 % (0.9-2.9) 09/28/19 05:22 Baso % (Auto) 0.3 % (0.2-1.0) 09/28/19 05:22 Neut # (Auto) 7.7 x10^3/uL (2.2-4.8) H 09/28/19 05:22 Lymph # (Auto) 2.7 X10^3/uL (1.3-2.9) 09/28/19 05:22 [place] # (Auto) 0.8 x10^3/uL (0.3-0.8) 09/28/19 05:22 Eos # (Auto) 0.3 x10^3/uL (0.0-0.2) H 09/28/19 05:22 Baso # (Auto) 0.0 X10^3/uL (0.0-0.1) 09/28/19 05:22 Absolute Nucleated RBC 0.0 /100WBC 09/28/19 05:22 Sodium 140 mmol/L (136-145) 09/28/19 05:22 Corrected Sodium TNP 09/28/19 05:22 Potassium 3.0 mmol/L (3.5-5.1) L* 09/28/19 05:22 Chloride 103 mmol/L (98-107) 09/28/19 05:22 Carbon Dioxide 29.8 mmol/L (21-32) 09/28/19 05:22 BUN 7 mg/dL (7-18) 09/28/19 05:22 Creatinine 0.65 mg/dL (0.55-1.02) 09/28/19 05:22 Est GFR (MDRD) Af Amer > 60 (>60) 09/28/19 05:22 Est GFR (MDRD) Non-Af > 60 (>60) 09/28/19 05:22 Glucose 87 mg/dL (65-99) 09/28/19 05:22 Calcium 7.9 mg/dL (8.5-10.1) L 09/28/19 05:22 Corrected Calcium 9.6 mg/dL (8.5-10.1) 09/28/19 05:22 Magnesium 1.7 mg/dL (1.7-2.9) 09/28/19 05:22 Total Bilirubin 0.30 mg/dL (0.2-1.0) 09/28/19 05:22 AST 9 Units/L (15-37) L 09/28/19 05:22 ALT 10 Units/L (12-78) L 09/28/19 05:22 Alkaline Phosphatase 78 Units/L (46-116) 09/28/19 05:22 Total Protein 5.7 g/dL (6.4-8.2) L 09/28/19 05:22 Albumin 1.9 g/dL (3.4-5.0) L 09/28/19 05:22 Globulin 3.8 g/dL (2.5-4.5) 09/28/19 05:22 Albumin/Globulin Ratio 0.5 Ratio (1.1-2.1) L 09/28/19 05:22 Specimen Type Catherized urine 09/24/19 13:15 Urine Color Yellow (YELLOW) 09/24/19 13:15 Urine Appearance Clear (CLEAR) 09/24/19 13:15 Urine pH 5.0 (5.0 - 8.0) 09/24/19 13:[address] 1.025 (1.000-1.030) 09/24/19 13:15 Urine Protein 3+ (NEGATIVE) 09/24/19 13:15 Urine Glucose (UA) Negative (NEGATIVE) 09/24/19 13:15 Urine Ketones 3+ (NEGATIVE) 09/24/19 13:15 Urine Occult Blood 3+ (NEGATIVE) 09/24/19 13:15 Urine Nitrite Negative (NEGATIVE) 09/24/19 13:15 Urine Bilirubin Negative (NEGATIVE) 09/24/19 13:15 Urine Urobilinogen Normal (NORMAL) 09/24/19 13:15 Ur Leukocyte Esterase Negative (NEGATIVE) 09/24/19 13:15 Urine RBC 5-10 /HPF (0-3) A 09/24/19 13:15 Urine WBC 3-5 /HPF (0-5) 09/24/19 13:15 Ur Squamous Epith Cells Many /HPF (NEGATIVE) 09/24/19 13:15 Amorphous Sediment 2+ /HPF (NEGATIVE) 09/24/19 13:15 Urine Bacteria 1+ /HPF (NEGATIVE) 09/24/19 13:15 Ur Culture Indicated? No/not indicated 09/24/19 13:15 Tissue Pathology To follow 09/24/19 13:00 - Assessment and Plan 1: post op sigmoid resection , drainage pelvic abscess , lysis of pelvic and abdominal adhesions . . OOB with binder. tolerating clear liquid. same IVF at 125 cc/h. on full liquid maybe D/C in am
[2019-09-28] MEDS: DILAUDID INJ IVP PRN ×3 (09:52→22:39)
[2019-09-29] MEDS: LR 1000 ML IV 1,000 ML IV SCH ×3 (01:04→09:55)
[2019-09-29] MEDS: DILAUDID INJ IVP PRN ×2 (01:33→08:32)
[2019-09-29 06:33] LABS: BASOPHILS # (AUTO) 0.1 X10^3/uL (0.0-0.1); BASOPHILS % (AUTO) 0.8 % (0.2-1.0); EOSINOPHILS # (AUTO) 0.5 x10^3/uL (0.0-0.2); EOSINOPHILS % (AUTO) 5.4 % (0.9-2.9); HEMATOCRIT 29.1 % (36.0-47.0); HEMOGLOBIN 9.5 g/dL (12.0-16.0); LYMPHOCYTES # (AUTO) 2.4 X10^3/uL (1.3-2.9); LYMPHOCYTES % (AUTO) 26.5 % (21.0-51.0); MEAN CORPUSCULAR HEMOGLOBIN 27.3 pg (27.0-34.0); MEAN CORPUSCULAR HGB CONC 32.5 g/dL (33.0-35.0); MEAN CORPUSCULAR VOLUME 84.1 fL (80.0-100.0); MEAN PLATELET VOLUME 7.7 fL (7.4-11.0); MONOCYTES # (AUTO) 0.8 x10^3/uL (0.3-0.8); MONOCYTES % (AUTO) 8.7 % (0.0-13.0); NEUTROPHILS # (AUTO) 5.3 x10^3/uL (2.2-4.8); NEUTROPHILS % (AUTO) 58.6 % (42.0-75.0); PLATELET COUNT 291 X10^3/uL (150.0-450.0); RED BLOOD COUNT 3.46 X10^6/uL (3.5-5.4); RED CELL DISTRIBUTION WIDTH 15.4 % (11.6-16.5); WHITE BLOOD COUNT 9.1 X10^3/uL (3.6-10.0)
[2019-09-29 06:52] LABS: ALANINE AMINOTRANSFERASE 9 Units/L (12-78); ALKALINE PHOSPHATASE 52 Units/L (46-116); ASPARTATE AMINO TRANSFERASE 9 Units/L (15-37); BLOOD UREA NITROGEN 5 mg/dL (7-18); CALCIUM 7.7 mg/dL (8.5-10.1); CARBON DIOXIDE 29.6 mmol/L (21-32); CHLORIDE 105 mmol/L (98-107); COR CA(FOR HYPOALB) 9.3 mg/dL (8.5-10.1); CREATININE 0.61 mg/dL (0.55-1.02); SODIUM 139 mmol/L (136-145); TOTAL PROTEIN 5.7 g/dL (6.4-8.2); eGFR NON BLACK RACES > 60 (>60)
[2019-09-29] MEDS: PROTONIX INJ 40 MG VIAL IVP SCH (08:33)
[2019-09-29] MEDS: LOVENOX INJ 40 MG SYR SC SCH (08:33)
[2019-09-29 13:27] VITALS: BP 157/90
[2019-09-29] MEDS ORDERED: ZESTRIL TAB 20 MG PO SCH (21:00)
== END 2019-09-29 13:25 | disposition home or self-care (01) | DRG 344 ==
LOC: OBS 08:32 → MED/SURG 08:56
PROVIDERS: ADMIT Obstetrics & Gynecology Obstetrics; ATTEND Surgery
DX: I10 Essential (primary) hypertension; R26.89 Other abnormalities of gait and mobility; K66.0 Peritoneal adhesions (postprocedural) (postinfection); E66.8 Other obesity; B96.29 Other Escherichia coli [E. coli] as the cause of diseases classified elsewhere; K65.1 Peritoneal abscess; B96.89 Other specified bacterial agents as the cause of diseases classified elsewhere; E86.0 Dehydration; K57.32 Diverticulitis of large intestine without perforation or abscess without bleeding
CPT/HCPCS: 36415; 71010; 71045; 80053; 81001; 83735; 84132; 85025; 87070; 87075; 87077; 87186; 87205; 93005; 97116; 97162; A4216; A4222; C9113; J0330; J0690; J1100; J1170; J1650; J1885; J1940; J1956; J2250; J2405; J2704; J2710; J3010; J3475; J3490; J7120; S0030; S5010

== ENCOUNTER 2021-11-09 08:06 | Inpatient (IN) ==
[2021-11-09 08:34] VITALS: BMI 43.0
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
[2021-11-09] MEDS ORDERED: NS 1,000 ML IV 1,000 ML IV ONE (08:57)
[2021-11-09 09:04] LABS: BASOPHILS # (AUTO) 0.1 X10^3/uL (0.0-0.1); BASOPHILS % (AUTO) 0.6 % (0.2-1.0); EOSINOPHILS # (AUTO) 0.1 x10^3/uL (0.0-0.2); EOSINOPHILS % (AUTO) 0.8 % (0.9-2.9); HEMATOCRIT 37.8 % (36.0-47.0); HEMOGLOBIN 12.3 g/dL (12.0-16.0); LYMPHOCYTES # (AUTO) 2.3 X10^3/uL (1.3-2.9); LYMPHOCYTES % (AUTO) 16.1 % (21.0-51.0); MEAN CORPUSCULAR HEMOGLOBIN 26.9 pg (27.0-34.0); MEAN CORPUSCULAR HGB CONC 32.5 g/dL (33.0-35.0); MEAN CORPUSCULAR VOLUME 82.7 fL (80.0-100.0); MEAN PLATELET VOLUME 8.5 fL (7.4-11.0); MONOCYTES % (AUTO) 6.8 % (0.0-13.0); NEUTROPHILS # (AUTO) 10.9 x10^3/uL (2.2-4.8); NEUTROPHILS % (AUTO) 75.7 % (42.0-75.0); RED BLOOD COUNT 4.57 X10^6/uL (3.5-5.4); RED CELL DISTRIBUTION WIDTH 15.3 % (11.6-16.5); WHITE BLOOD COUNT 14.5 X10^3/uL (3.6-10.0)
[2021-11-09] MEDS ORDERED: NS 1,000 ML IV 1,000 ML ONE (09:06)
[2021-11-09 09:21] LABS: ALANINE AMINOTRANSFERASE 17 Units/L (12-78); ALBUMIN 3.2 g/dL (3.4-5.0); ALKALINE PHOSPHATASE 90 Units/L (46-116); ASPARTATE AMINO TRANSFERASE 12 Units/L (15-37); BLOOD UREA NITROGEN 10 mg/dL (7-18); CARBON DIOXIDE 27.8 mmol/L (21-32); CHLORIDE 101 mmol/L (98-107); COR CA(FOR HYPOALB) 9.6 mg/dL (8.5-10.1); CREATININE 0.96 mg/dL (0.55-1.02); SODIUM 138 mmol/L (136-145); TOTAL PROTEIN 7.7 g/dL (6.4-8.2); eGFR NON BLACK RACES > 60 (>60)
[2021-11-09 11:09] LABS: BILIRUBIN,URINE NEGATIVE (NEGATIVE); BLOOD/HEMOGLOBIN,URINE 2+ (NEGATIVE); GLUCOSE, URINE NEGATIVE (NEGATIVE); KETONES,URINE 2+ (NEGATIVE); LEUKOCYTE ESTERASE ,URINE NEGATIVE (NEGATIVE); NITRITES,URINE NEGATIVE (NEGATIVE); PROTEIN,URINE 1+ (NEGATIVE); UROBILINOGEN,URINE NORMAL (NORMAL)
[2021-11-09 11:21] LABS: APPEARANCE,URINE HAZY (CLEAR); COLOR,URINE YELLOW (YELLOW)
[2021-11-09 11:22] LABS: BACTERIA,URINE TRACE /HPF (NEGATIVE); SQUAMOUS EPITHELIAL CELL,UR MODERATE /HPF (NEGATIVE)
--- NOTE | 2021-11-09 11:57 | CT ---
HISTORYLeft upper quadrant abdominal painSTUDYCT abdomen pelvis with contrastTechnique: Axial post-contrast images with coronal and sagittal reformats. Dose reduction procedures were used with mA/kv adjusted for body size.[id number]/13/2020FINDINGSThe lung bases are clear. The liver, spleen, adrenal glands, and pancreas are within normal limits. Incidental note is made of some focal fatty sparing abutting the falciform ligament in the right lobe of the liver, benign and stable. Patient is status post cholecystectomy. The kidneys are unobstructed and without stones or masses. No ureteral calculi are identified. The appendix is normal. The abdominal aorta is normal. No enlarged intraperitoneal or retroperitoneal lymphadenopathy is identified. Scattered but nonenlarged mesenteric and retroperitoneal lymph nodes are present. There are no definite findings suggestive of enteritis or colitis. However, there is extensive pericolonic inflammation involving the proximal and mid descending colon where there is some transmural thickening and a densely enhancing diverticulum. Findings are most consistent with acute diverticulitis at the level of the proximal to mid descending colon in the left upper quadrant. There is no evidence for perforation or abscess. It is possible that the above-noted adenopathy is reactive to the diverticulitis. Examination of the pelvis demonstrated no evidence for pelvic masses, pelvic fluid, or pelvic lymphadenopathy. No definite bladder abnormality is identified however evaluation of bladder was somewhat limited as it was nearly empty. No lytic or blastic skeletal lesions of significance are identified.IMPRESSIONFindings consistent with moderately severe acute diverticulitis involving the proximal to mid descending colon in the left upper quadrant and without evidence for pericolonic abscess or micro perforation.Electronically signed by: LELA REYES (Nov 09, 2021 11:57:06)
[2021-11-09] MEDS ORDERED: K-DUR TAB 20 MEQ PO ONE ×2 (12:12→12:42)
[2021-11-09] MEDS ORDERED: GENTAMICIN INJ 80 MG in NS 100 ML IV 100 ML IV ONE (12:13)
[2021-11-09] MEDS ORDERED: MEFOXIN IV ONE ×3 (12:16→17:09)
[2021-11-09] MEDS ORDERED: NS IV ONE ×2 (12:16→12:31)
[2021-11-09] MEDS ORDERED: GENTAMICIN INJ ONE (12:42)
[2021-11-09] MEDS ORDERED: NS 100 ML IV 100 ML ONE ×2 (12:42→17:09)
[2021-11-09] MEDS ORDERED: GENTAMICIN INJ 80 MG in NS 100 ML IV 100 ML IV SCH (13:00)
[2021-11-09] MEDS ORDERED: NS IV SCH (14:00)
[2021-11-09] MEDS ORDERED: MEFOXIN IV SCH (14:00)
[2021-11-09] MEDS: NS 1,000 ML IV 1,000 ML IV SCH (15:10)
[2021-11-09] MEDS: FLAGYL TAB 500 MG PO SCH ×2 (15:11→21:15)
[2021-11-09] MEDS: CIPRO IV 400 MG PREMIX* 400 MG/200 ML IV.SOLN. IV SCH ×2 (15:11→21:15)
--- NOTE | 2021-11-09 16:18 | DR.H&P ---
H&P History & Physical for Day of: H&P Date: 11/09/21 Chief Complaint Chief Complaint: abdominal pain Allergies Allergies Allergy/AdvReac Type Severity Reaction Status Date / Time No Known Drug Allergies Allergy Verified 11/09/21 13:53 History of Present Illness History of Present Illness: Ms Mojica is a 36y/o female with a PMH of recurrent diverticulitis requiring partial sigmoid [place] [address] Nagy presented with worsening left sided abdominal pain. Patient states her symptoms started Sunday and she initially thought it was gas pain. She states the pain is constant and severe, initially was cramping but has gotten worse. She did have some nausea, no vomiting or diarrhea. Denies fever or chills. She did eat some spicy food at a festival prior to her symptom onset. She reports decreased appetite, last meal yesterday. No worsening of pain with eating. Hx of cholecystectomy and . Denies excessive ETOH use, quit smoking 2 years ago. Labs/imaging reviewed Patient admitted for diverticulitis, started on IV antibiotics and hydration. Plan: continue IV hydration, change abx to IV Ciprofloxacin and PO Flagyl. Add morphine 2 mg q4prn. Continue NPO, advance as tolerated. Add zofran prn. Replace K. Monitor AM labs/imaging. Past Medical History Additional Medical History: Diverticulitis Past Surgical History Surgical History: Abdominal Surgery, and Cholecystectomy Family History Family Medical History: Diabetes Mellitus and Hypertension Social History Does patient currently use any type of tobacco product: No Have you used tobacco products in the last 12 months: No Type of Tobacco Use: None Does any household member use tobacco: No Alcohol Use: Occasionally Drug Use: None Prescription drug monitoring program results: PDMP reviewed and no concerns identified Medications Home Medications: No Known Drug Allergies Allergy (Verified 11/09/21 13:53) CONTINUE taking the following medications NK 11/09/21 [History] Labs Result Diagrams: 11/09/21 08:53 11/09/21 08:53 Labs: Laboratory WBC 14.5 X10^3/uL (3.6-10.0) H 11/09/21 08:53 RBC 4.57 X10^6/uL (3.5-5.4) 11/09/21 08:53 Hgb 12.3 g/dL (12.0-16.0) 11/09/21 08:53 Hct 37.8 % (36.0-47.0) 11/09/21 08:53 MCV 82.7 fL (80.0-100.0) 11/09/21 08:53 MCH 26.9 pg (27.0-34.0) L 11/09/21 08:53 MCHC 32.5 g/dL (33.0-35.0) L 11/09/21 08:53 RDW 15.3 % (11.6-16.5) 11/09/21 08:53 Plt Count 267 X10^3/uL (150.0-450.0) 11/09/21 08:53 MPV 8.5 fL (7.4-11.0) 11/09/21 08:53 Neut % (Auto) 75.7 % (42.0-75.0) H 11/09/21 08:53 Lymph % (Auto) 16.1 % (21.0-51.0) L 11/09/21 08:53 [place] % (Auto) 6.8 % (0.0-13.0) 11/09/21 08:53 Eos % (Auto) 0.8 % (0.9-2.9) L 11/09/21 08:53 Baso % (Auto) 0.6 % (0.2-1.0) 11/09/21 08:53 Neut # (Auto) 10.9 x10^3/uL (2.2-4.8) H 11/09/21 08:53 Lymph # (Auto) 2.3 X10^3/uL (1.3-2.9) 11/09/21 08:53 [place] # (Auto) 1.0 x10^3/uL (0.3-0.8) H 11/09/21 08:53 Eos # (Auto) 0.1 x10^3/uL (0.0-0.2) 11/09/21 08:53 Baso # (Auto) 0.1 X10^3/uL (0.0-0.1) 11/09/21 08:53 Absolute Nucleated RBC 0.0 /100WBC 11/09/21 08:53 Sodium 138 mmol/L (136-145) 11/09/21 08:53 Corrected Sodium TNP 11/09/21 08:53 Potassium 3.3 mmol/L (3.5-5.1) L 11/09/21 08:53 Chloride 101 mmol/L (98-107) 11/09/21 08:53 Carbon Dioxide 27.8 mmol/L (21-32) 11/09/21 08:53 BUN 10 mg/dL (7-18) 11/09/21 08:53 Creatinine 0.96 mg/dL (0.55-1.02) 11/09/21 08:53 Est GFR (MDRD) Af Amer > 60 (>60) 11/09/21 08:53 Est GFR (MDRD) Non-Af > 60 (>60) 11/09/21 08:53 Glucose 92 mg/dL (65-99) 11/09/21 08:53 Calcium 9.0 mg/dL (8.5-10.1) 11/09/21 08:53 Corrected Calcium 9.6 mg/dL (8.5-10.1) 11/09/21 08:53 Total Bilirubin 1.00 mg/dL (0.2-1.0) 11/09/21 08:53 AST 12 Units/L (15-37) L 11/09/21 08:53 ALT 17 Units/L (12-78) 11/09/21 08:53 Alkaline Phosphatase 90 Units/L (46-116) 11/09/21 08:53 Total Protein 7.7 g/dL (6.4-8.2) 11/09/21 08:53 Albumin 3.2 g/dL (3.4-5.0) L 11/09/21 08:53 Globulin 4.5 g/dL (2.5-4.5) 11/09/21 08:53 Albumin/Globulin Ratio 0.7 Ratio (1.1-2.1) L 11/09/21 08:53 Specimen Type Clean catch urine 11/09/21 11:03 Urine Color Yellow (YELLOW) 11/09/21 11:03 Urine Appearance Hazy (CLEAR) 11/09/21 11:03 Urine pH 5.0 (5.0 - 8.0) 11/09/21 11:03 Ur Specific [place] 1.015 (1.000-1.030) 11/09/21 11:03 Urine Protein 1+ (NEGATIVE) 11/09/21 11:03 Urine Glucose (UA) Negative (NEGATIVE) 11/09/21 11:03 Urine Ketones 2+ (NEGATIVE) 11/09/21 11:03 Urine Blood 2+ (NEGATIVE) 11/09/21 11:03 Urine Nitrite Negative (NEGATIVE) 11/09/21 11:03 Urine Bilirubin Negative (NEGATIVE) 11/09/21 11:03 Urine Urobilinogen Normal (NORMAL) 11/09/21 11:03 Ur Leukocyte Esterase Negative (NEGATIVE) 11/09/21 11:03 Urine RBC 5-10 /HPF (0-3) A 11/09/21 11:03 Urine WBC 0-2 /HPF (0-5) 11/09/21 11:03 Ur Squamous Epith Cells Moderate /HPF (NEGATIVE) 11/09/21 11:03 Urine Bacteria Trace /HPF (NEGATIVE) 11/09/21 11:03 Urine Mucus Moderate /HPF (NEGATIVE) 11/09/21 11:03 Ur Culture Indicated? No/not indicated 11/09/21 11:03 SARS CoV-2 RNA Rapid BRITTANY Negative (NEGATIVE) 11/09/21 12:10 Review of Systems Constitutional: No Symptoms Reported Eyes: No Symptoms Reported ENT: No Symptoms Reported Respiratory: No Symptoms Reported Cardiovascular: No Symptoms Reported Gastrointestinal: Nausea and Abdominal Pain Genitourinary: No Symptoms Reported Musculoskeletal: No Symptoms Reported Skin: No Symptoms Reported Neurological: No Symptoms Reported Physical Exam Vital Signs: Temperature 98.8 F Pulse Rate [Right Brachial] 89 Pulse Rate [Left] 89 Pulse Rate 96 Respiratory Rate 17 Blood Pressure [Right Arm] 144/84 Blood Pressure 122/82 O2 Sat by Pulse Oximetry 99 Oriented: Normal Eyes: Normal Ear: Normal Nose: Normal Throat: Normal Respiratory: Clear Throughout Cardiovascular: Normal Auscultation: Bowel Sounds: Increased Tenderness: LUQ, LLQ and Moderate; negative Rebound and Rigidity Skin: Normal Musculoskeletal: Normal Mood Description: Calm Affect: Normal Speech Pattern: Clear and Appropriate Assessment/Plan (1) Diverticulitis large intestine: Qualifiers: Diverticulitis bleeding: without bleeding Diverticulitis complication: without perforation or abscess Qualified Code(s): K57.32 - Diverticulitis of large intestine without perforation or abscess without bleeding Status: Acute (2) Abdominal pain: Qualifiers: Abdominal location: left upper quadrant Qualified Code(s): R10.12 - Left upper quadrant pain Status: Acute (3) Hypokalemia: Status: Acute (4) Dehydration: Status: Acute (5) History of colon resection: Status: Acute Review H&P Reviewed: Yes Patient was examined?: Yes
[2021-11-09] MEDS: MORPHINE SULFATE INJ 2 MG INJ IVP PRN ×2 (16:19→23:00)
[2021-11-09] MEDS: ZOFRAN INJ 4 MG VIAL IVP PRN (23:14)
[2021-11-10] MEDS ORDERED: MICRO K EXTEN CAP 10 MEQ PO PRN
[2021-11-10] MEDS ORDERED: KLOR-CON PO PRN
[2021-11-10] MEDS ORDERED: POTASSIUM CHL 40 MEQ/NS 0.45% 500 ML IV PRN
[2021-11-10] MEDS ORDERED: K-RIDER 10 MEQ/NS 100 ML 10 MEQ/100 ML BAG IV PRN
[2021-11-10] MEDS ORDERED: POTASSIUM CHLORIDE LIQ 20 MEQ UDC PO PRN
[2021-11-10] MEDS ORDERED: POTASSIUM CHL 60 MEQ/NS 0.45% 500 ML IV PRN
[2021-11-10] MEDS: NS 1,000 ML IV 1,000 ML IV SCH ×5 (00:02→21:44)
[2021-11-10] MEDS: MAGNESIUM SULFATE 1 GRAM/100 mL PREMIX 1 G/100 ML BAG IV PRN ×2 (01:05→02:10)
[2021-11-10] MEDS: FLAGYL TAB 500 MG PO SCH ×3 (05:23→21:38)
[2021-11-10] MEDS: MORPHINE SULFATE INJ 2 MG INJ IVP PRN ×3 (05:23→21:37)
[2021-11-10] MEDS: ZOFRAN INJ 4 MG VIAL IVP PRN ×2 (05:24→10:19)
[2021-11-10 06:12] LABS: BASOPHILS % (AUTO) 0.2 % (0.2-1.0); EOSINOPHILS # (AUTO) 0.2 x10^3/uL (0.0-0.2); EOSINOPHILS % (AUTO) 1.5 % (0.9-2.9); HEMATOCRIT 34.5 % (36.0-47.0); HEMOGLOBIN 11.3 g/dL (12.0-16.0); LYMPHOCYTES # (AUTO) 1.9 X10^3/uL (1.3-2.9); LYMPHOCYTES % (AUTO) 17.2 % (21.0-51.0); MEAN CORPUSCULAR HEMOGLOBIN 27.4 pg (27.0-34.0); MEAN CORPUSCULAR HGB CONC 32.6 g/dL (33.0-35.0); MEAN CORPUSCULAR VOLUME 84.1 fL (80.0-100.0); MEAN PLATELET VOLUME 8.6 fL (7.4-11.0); MONOCYTES # (AUTO) 1.1 x10^3/uL (0.3-0.8); MONOCYTES % (AUTO) 10.2 % (0.0-13.0); NEUTROPHILS # (AUTO) 7.9 x10^3/uL (2.2-4.8); NEUTROPHILS % (AUTO) 70.9 % (42.0-75.0); RED BLOOD COUNT 4.11 X10^6/uL (3.5-5.4); RED CELL DISTRIBUTION WIDTH 15.1 % (11.6-16.5); WHITE BLOOD COUNT 11.1 X10^3/uL (3.6-10.0)
[2021-11-10 06:24] LABS: ALANINE AMINOTRANSFERASE 14 Units/L (12-78); ALBUMIN 2.5 g/dL (3.4-5.0); ALKALINE PHOSPHATASE 80 Units/L (46-116); ASPARTATE AMINO TRANSFERASE 12 Units/L (15-37); BLOOD UREA NITROGEN 8 mg/dL (7-18); CALCIUM 7.8 mg/dL (8.5-10.1); CARBON DIOXIDE 23.1 mmol/L (21-32); CHLORIDE 104 mmol/L (98-107); CREATININE 0.74 mg/dL (0.55-1.02); SODIUM 136 mmol/L (136-145); TOTAL PROTEIN 6.5 g/dL (6.4-8.2); eGFR NON BLACK RACES > 60 (>60)
[2021-11-10] MEDS: CIPRO IV 400 MG PREMIX* 400 MG/200 ML IV.SOLN. IV SCH ×2 (09:23→21:38)
--- NOTE | 2021-11-10 11:54 | PCM.PROG ---
Progress Note Progress Note for Day of Date of Exam: 11/10/21 Subjective Subjective: Patient seen at bedside, no events overnight. She states her abdominal pain is better this morning. She still has some nausea. Denies vomiting or diarrhea. No BM. Denies fever or chills. Labs reviewed Plan: continue hydration and IV abx Cipro and Flagyl. Continue pain control and anti-emetics. Patient would like to try clears later but wants to remain NPO for now. Advance diet as tolerated. Monitor AM labs. Past Medical Family Social History Past Med/Fam/Surg Hx: No changes since H&P Allergies: Allergies No Known Drug Allergies Allergy (Verified 11/09/21 13:53) Review of Systems ROS: No change since H&P Vital Signs and I&O's Vital Signs: Temperature 98.2 F Pulse Rate [Right Brachial] 89 Pulse Rate [Left] 89 Pulse Rate 96 Respiratory Rate 20 Blood Pressure [Right Arm] 147/83 Blood Pressure 122/82 O2 Sat by Pulse Oximetry 98 Intake and Output: Intake & Output 11/07/21 11/08/21 11/09/21 11/10/21 23:59 23:59 23:59 23:59 Intake Total 100 / 100 0 / 0 Output Total 800 / 800 Balance -700 / -700 0 / 0 Physical Exam Oriented: Normal Eyes: Normal Ear: Normal Nose: Normal Throat: Normal Respiratory: Normal Cardiovascular: Normal Auscultation: Bowel Sounds: Increased Tenderness: LUQ, LLQ and Moderate; negative Rebound and Rigidity Skin: Normal Musculoskeletal: Normal Mood Description: Calm Affect: Normal Speech Pattern: Clear and Appropriate Laboratory and Diagnostics Result Diagrams: 11/10/21 05:12 11/10/21 05:12 Labs: Laboratory WBC 11.1 X10^3/uL (3.6-10.0) H 11/10/21 05:12 RBC 4.11 X10^6/uL (3.5-5.4) 11/10/21 05:12 Hgb 11.3 g/dL (12.0-16.0) L 11/10/21 05:12 Hct 34.5 % (36.0-47.0) L 11/10/21 05:12 MCV 84.1 fL (80.0-100.0) 11/10/21 05:12 MCH 27.4 pg (27.0-34.0) 11/10/21 05:12 MCHC 32.6 g/dL (33.0-35.0) L 11/10/21 05:12 RDW 15.1 % (11.6-16.5) 11/10/21 05:12 Plt Count 262 X10^3/uL (150.0-450.0) 11/10/21 05:12 MPV 8.6 fL (7.4-11.0) 11/10/21 05:12 Neut % (Auto) 70.9 % (42.0-75.0) 11/10/21 05:12 Lymph % (Auto) 17.2 % (21.0-51.0) L 11/10/21 05:12 [place] % (Auto) 10.2 % (0.0-13.0) 11/10/21 05:12 Eos % (Auto) 1.5 % (0.9-2.9) 11/10/21 05:12 Baso % (Auto) 0.2 % (0.2-1.0) 11/10/21 05:12 Neut # (Auto) 7.9 x10^3/uL (2.2-4.8) H 11/10/21 05:12 Lymph # (Auto) 1.9 X10^3/uL (1.3-2.9) 11/10/21 05:12 [place] # (Auto) 1.1 x10^3/uL (0.3-0.8) H 11/10/21 05:12 Eos # (Auto) 0.2 x10^3/uL (0.0-0.2) 11/10/21 05:12 Baso # (Auto) 0.0 X10^3/uL (0.0-0.1) 11/10/21 05:12 Absolute Nucleated RBC 0.1 /100WBC 11/10/21 05:12 Sodium 136 mmol/L (136-145) 11/10/21 05:12 Corrected Sodium TNP 11/10/21 05:12 Potassium 3.6 mmol/L (3.5-5.1) 11/10/21 05:12 Chloride 104 mmol/L (98-107) 11/10/21 05:12 Carbon Dioxide 23.1 mmol/L (21-32) 11/10/21 05:12 BUN 8 mg/dL (7-18) 11/10/21 05:12 Creatinine 0.74 mg/dL (0.55-1.02) 11/10/21 05:12 Est GFR (MDRD) Af Amer > 60 (>60) 11/10/21 05:12 Est GFR (MDRD) Non-Af > 60 (>60) 11/10/21 05:12 Glucose 83 mg/dL (65-99) 11/10/21 05:12 Calcium 7.8 mg/dL (8.5-10.1) L 11/10/21 05:12 Corrected Calcium 9.0 mg/dL (8.5-10.1) 11/10/21 05:12 Magnesium 2.0 mg/dL (1.7-2.9) 11/10/21 05:12 Total Bilirubin 0.90 mg/dL (0.2-1.0) 11/10/21 05:12 AST 12 Units/L (15-37) L 11/10/21 05:12 ALT 14 Units/L (12-78) 11/10/21 05:12 Alkaline Phosphatase 80 Units/L (46-116) 11/10/21 05:12 Total Protein 6.5 g/dL (6.4-8.2) 11/10/21 05:12 Albumin 2.5 g/dL (3.4-5.0) L 11/10/21 05:12 Globulin 4.0 g/dL (2.5-4.5) 11/10/21 05:12 Albumin/Globulin Ratio 0.6 Ratio (1.1-2.1) L 11/10/21 05:12 Specimen Type Clean catch urine 11/09/21 11:03 Urine Color Yellow (YELLOW) 11/09/21 11:03 Urine Appearance Hazy (CLEAR) 11/09/21 11:03 Urine pH 5.0 (5.0 - 8.0) 11/09/21 11:03 Ur Specific [place] 1.015 (1.000-1.030) 11/09/21 11:03 Urine Protein 1+ (NEGATIVE) 11/09/21 11:03 Urine Glucose (UA) Negative (NEGATIVE) 11/09/21 11:03 Urine Ketones 2+ (NEGATIVE) 11/09/21 11:03 Urine Blood 2+ (NEGATIVE) 11/09/21 11:03 Urine Nitrite Negative (NEGATIVE) 11/09/21 11:03 Urine Bilirubin Negative (NEGATIVE) 11/09/21 11:03 Urine Urobilinogen Normal (NORMAL) 11/09/21 11:03 Ur Leukocyte Esterase Negative (NEGATIVE) 11/09/21 11:03 Urine RBC 5-10 /HPF (0-3) A 11/09/21 11:03 Urine WBC 0-2 /HPF (0-5) 11/09/21 11:03 Ur Squamous Epith Cells Moderate /HPF (NEGATIVE) 11/09/21 11:03 Urine Bacteria Trace /HPF (NEGATIVE) 11/09/21 11:03 Urine Mucus Moderate /HPF (NEGATIVE) 11/09/21 11:03 Ur Culture Indicated? No/not indicated 11/09/21 11:03 SARS CoV-2 RNA Rapid BRITTANY Negative (NEGATIVE) 11/09/21 12:10 Plan (1) Diverticulitis large intestine: Status: Acute Qualifiers: Diverticulitis bleeding: without bleeding Diverticulitis complication: without perforation or abscess Qualified Code(s): K57.32 - Diverticulitis of large intestine without perforation or abscess without bleeding (2) Abdominal pain: Status: Acute Qualifiers: Abdominal location: left upper quadrant Qualified Code(s): R10.12 - Left upper quadrant pain (3) Hypokalemia: Status: Acute (4) Dehydration: Status: Acute (5) History of colon resection: Status: Acute
[2021-11-11 05:44] LABS: ALANINE AMINOTRANSFERASE 12 Units/L (12-78); ALBUMIN 2.4 g/dL (3.4-5.0); ALKALINE PHOSPHATASE 83 Units/L (46-116); ASPARTATE AMINO TRANSFERASE 12 Units/L (15-37); BASOPHILS # (AUTO) 0.1 X10^3/uL (0.0-0.1); BASOPHILS % (AUTO) 0.5 % (0.2-1.0); BLOOD UREA NITROGEN 6 mg/dL (7-18); CALCIUM 7.5 mg/dL (8.5-10.1); CARBON DIOXIDE 19.9 mmol/L (21-32); CHLORIDE 104 mmol/L (98-107); COR CA(FOR HYPOALB) 8.8 mg/dL (8.5-10.1); CREATININE 0.66 mg/dL (0.55-1.02); EOSINOPHILS # (AUTO) 0.2 x10^3/uL (0.0-0.2); EOSINOPHILS % (AUTO) 2.3 % (0.9-2.9); HEMATOCRIT 34.2 % (36.0-47.0); HEMOGLOBIN 11.2 g/dL (12.0-16.0); LYMPHOCYTES % (AUTO) 21.1 % (21.0-51.0); MEAN CORPUSCULAR HEMOGLOBIN 27.5 pg (27.0-34.0); MEAN CORPUSCULAR HGB CONC 32.7 g/dL (33.0-35.0); MEAN PLATELET VOLUME 8.6 fL (7.4-11.0); MONOCYTES # (AUTO) 0.9 x10^3/uL (0.3-0.8); MONOCYTES % (AUTO) 9.8 % (0.0-13.0); NEUTROPHILS # (AUTO) 6.3 x10^3/uL (2.2-4.8); NEUTROPHILS % (AUTO) 66.3 % (42.0-75.0); RED BLOOD COUNT 4.07 X10^6/uL (3.5-5.4); RED CELL DISTRIBUTION WIDTH 15.1 % (11.6-16.5); SODIUM 136 mmol/L (136-145); TOTAL PROTEIN 6.3 g/dL (6.4-8.2); WHITE BLOOD COUNT 9.5 X10^3/uL (3.6-10.0); eGFR NON BLACK RACES > 60 (>60)
[2021-11-11] MEDS: NS 1,000 ML IV 1,000 ML IV SCH ×3 (05:44→21:19)
[2021-11-11] MEDS: FLAGYL TAB 500 MG PO SCH ×3 (05:44→21:19)
[2021-11-11] MEDS: MORPHINE SULFATE INJ 2 MG INJ IVP PRN (05:47)
--- NOTE | 2021-11-11 08:30 | PCM.PROG ---
Progress Note Progress Note for Day of Date of Exam: 11/11/21 Subjective Subjective: Patient seen at bedside, no events overnight. She tried apple juice yesterday but threw up right after. She said her abdominal pain is slightly better. No BM. She has been ambulating in the room. Labs reviewed Plan: continue hydration and IV abx Cipro and Flagyl. Continue pain control and anti-emetics. Discussed to try jello this morning and she how she feels. Advance diet as tolerated. Encouraged to ambulate as tolerated. Monitor AM labs. Past Medical Family Social History Past Med/Fam/Surg Hx: No changes since H&P Allergies: Allergies No Known Drug Allergies Allergy (Verified 11/09/21 13:53) Review of Systems ROS: No change since H&P Vital Signs and I&O's Vital Signs: Temperature 98.6 F Pulse Rate [Right Brachial] 82 Pulse Rate [Left] 89 Pulse Rate 96 Respiratory Rate 18 Blood Pressure [Right Arm] 136/74 Blood Pressure 122/82 O2 Sat by Pulse Oximetry 97 Intake and Output: Intake & Output 11/08/21 11/09/21 11/10/21 11/11/21 23:59 23:59 23:59 23:59 Intake Total 100 / 100 200 / 200 1050 / 1050 Output Total 800 / 800 Balance -700 / -700 200 / 200 1050 / 1050 Physical Exam Oriented: Normal Eyes: Normal Ear: Normal Nose: Normal Throat: Normal Respiratory: Normal Cardiovascular: Normal Auscultation: Bowel Sounds: Normal Tenderness: LUQ, LLQ and Mild; negative Rebound and Rigidity Skin: Normal Musculoskeletal: Normal Mood Description: Calm Affect: Normal Speech Pattern: Clear and Appropriate Laboratory and Diagnostics Result Diagrams: 11/11/21 04:15 11/11/21 04:15 Labs: Laboratory WBC 9.5 X10^3/uL (3.6-10.0) 11/11/21 04:15 RBC 4.07 X10^6/uL (3.5-5.4) 11/11/21 04:15 Hgb 11.2 g/dL (12.0-16.0) L 11/11/21 04:15 Hct 34.2 % (36.0-47.0) L 11/11/21 04:15 MCV 84.0 fL (80.0-100.0) 11/11/21 04:15 MCH 27.5 pg (27.0-34.0) 11/11/21 04:15 MCHC 32.7 g/dL (33.0-35.0) L 11/11/21 04:15 RDW 15.1 % (11.6-16.5) 11/11/21 04:15 Plt Count 254 X10^3/uL (150.0-450.0) 11/11/21 04:15 MPV 8.6 fL (7.4-11.0) 11/11/21 04:15 Neut % (Auto) 66.3 % (42.0-75.0) 11/11/21 04:15 Lymph % (Auto) 21.1 % (21.0-51.0) 11/11/21 04:15 [place] % (Auto) 9.8 % (0.0-13.0) 11/11/21 04:15 Eos % (Auto) 2.3 % (0.9-2.9) 11/11/21 04:15 Baso % (Auto) 0.5 % (0.2-1.0) 11/11/21 04:15 Neut # (Auto) 6.3 x10^3/uL (2.2-4.8) H 11/11/21 04:15 Lymph # (Auto) 2.0 X10^3/uL (1.3-2.9) 11/11/21 04:15 [place] # (Auto) 0.9 x10^3/uL (0.3-0.8) H 11/11/21 04:15 Eos # (Auto) 0.2 x10^3/uL (0.0-0.2) 11/11/21 04:15 Baso # (Auto) 0.1 X10^3/uL (0.0-0.1) 11/11/21 04:15 Absolute Nucleated RBC 0.0 /100WBC 11/11/21 04:15 Sodium 136 mmol/L (136-145) 11/11/21 04:15 Corrected Sodium TNP 11/11/21 04:15 Potassium 3.6 mmol/L (3.5-5.1) 11/11/21 04:15 Chloride 104 mmol/L (98-107) 11/11/21 04:15 Carbon Dioxide 19.9 mmol/L (21-32) L 11/11/21 04:15 BUN 6 mg/dL (7-18) L 11/11/21 04:15 Creatinine 0.66 mg/dL (0.55-1.02) 11/11/21 04:15 Est GFR (MDRD) Af Amer > 60 (>60) 11/11/21 04:15 Est GFR (MDRD) Non-Af > 60 (>60) 11/11/21 04:15 Glucose 73 mg/dL (65-99) 11/11/21 04:15 Calcium 7.5 mg/dL (8.5-10.1) L 11/11/21 04:15 Corrected Calcium 8.8 mg/dL (8.5-10.1) 11/11/21 04:15 Magnesium 2.0 mg/dL (1.7-2.9) 11/11/21 04:15 Total Bilirubin 0.50 mg/dL (0.2-1.0) 11/11/21 04:15 AST 12 Units/L (15-37) L 11/11/21 04:15 ALT 12 Units/L (12-78) 11/11/21 04:15 Alkaline Phosphatase 83 Units/L (46-116) 11/11/21 04:15 Total Protein 6.3 g/dL (6.4-8.2) L 11/11/21 04:15 Albumin 2.4 g/dL (3.4-5.0) L 11/11/21 04:15 Globulin 3.9 g/dL (2.5-4.5) 11/11/21 04:15 Albumin/Globulin Ratio 0.6 Ratio (1.1-2.1) L 11/11/21 04:15 Specimen Type Clean catch urine 11/09/21 11:03 Urine Color Yellow (YELLOW) 11/09/21 11:03 Urine Appearance Hazy (CLEAR) 11/09/21 11:03 Urine pH 5.0 (5.0 - 8.0) 11/09/21 11:03 Ur Specific [place] 1.015 (1.000-1.030) 11/09/21 11:03 Urine Protein 1+ (NEGATIVE) 11/09/21 11:03 Urine Glucose (UA) Negative (NEGATIVE) 11/09/21 11:03 Urine Ketones 2+ (NEGATIVE) 11/09/21 11:03 Urine Blood 2+ (NEGATIVE) 11/09/21 11:03 Urine Nitrite Negative (NEGATIVE) 11/09/21 11:03 Urine Bilirubin Negative (NEGATIVE) 11/09/21 11:03 Urine Urobilinogen Normal (NORMAL) 11/09/21 11:03 Ur Leukocyte Esterase Negative (NEGATIVE) 11/09/21 11:03 Urine RBC 5-10 /HPF (0-3) A 11/09/21 11:03 Urine WBC 0-2 /HPF (0-5) 11/09/21 11:03 Ur Squamous Epith Cells Moderate /HPF (NEGATIVE) 11/09/21 11:03 Urine Bacteria Trace /HPF (NEGATIVE) 11/09/21 11:03 Urine Mucus Moderate /HPF (NEGATIVE) 11/09/21 11:03 Ur Culture Indicated? No/not indicated 11/09/21 11:03 SARS CoV-2 RNA Rapid BRITTANY Negative (NEGATIVE) 11/09/21 12:10 Plan (1) Diverticulitis large intestine: Status: Acute Qualifiers: Diverticulitis bleeding: without bleeding Diverticulitis complication: without perforation or abscess Qualified Code(s): K57.32 - Diverticulitis of large intestine without perforation or abscess without bleeding (2) Abdominal pain: Status: Acute Qualifiers: Abdominal location: left upper quadrant Qualified Code(s): R10.12 - Left upper quadrant pain (3) Hypokalemia: Status: Acute (4) Dehydration: Status: Acute (5) History of colon resection: Status: Acute
[2021-11-11] MEDS: K-DUR TAB 20 MEQ PO PRN (08:49)
[2021-11-11] MEDS: CIPRO IV 400 MG PREMIX* 400 MG/200 ML IV.SOLN. IV SCH ×2 (08:50→21:18)
[2021-11-11] MEDS: PROTONIX INJ 40 MG VIAL IVP SCH (08:51)
[2021-11-11] MEDS: ZOFRAN INJ 4 MG VIAL IVP PRN (18:00)
[2021-11-12] MEDS: ZOFRAN INJ 4 MG VIAL IVP PRN (00:01)
[2021-11-12] MEDS: MORPHINE SULFATE INJ 2 MG INJ IVP PRN (00:01)
[2021-11-12] MEDS: FLAGYL TAB 500 MG PO SCH ×3 (05:46→21:34)
[2021-11-12] MEDS: NS 1,000 ML IV 1,000 ML IV SCH ×3 (05:47→21:34)
[2021-11-12 06:52] LABS: BASOPHILS % (AUTO) 0.5 % (0.2-1.0); EOSINOPHILS # (AUTO) 0.2 x10^3/uL (0.0-0.2); EOSINOPHILS % (AUTO) 2.6 % (0.9-2.9); HEMATOCRIT 35.1 % (36.0-47.0); HEMOGLOBIN 11.4 g/dL (12.0-16.0); LYMPHOCYTES # (AUTO) 2.2 X10^3/uL (1.3-2.9); LYMPHOCYTES % (AUTO) 23.7 % (21.0-51.0); MEAN CORPUSCULAR HEMOGLOBIN 27.2 pg (27.0-34.0); MEAN CORPUSCULAR HGB CONC 32.3 g/dL (33.0-35.0); MEAN PLATELET VOLUME 8.4 fL (7.4-11.0); MONOCYTES % (AUTO) 10.3 % (0.0-13.0); NEUTROPHILS # (AUTO) 5.9 x10^3/uL (2.2-4.8); NEUTROPHILS % (AUTO) 62.9 % (42.0-75.0); RED BLOOD COUNT 4.18 X10^6/uL (3.5-5.4); RED CELL DISTRIBUTION WIDTH 15.2 % (11.6-16.5); WHITE BLOOD COUNT 9.4 X10^3/uL (3.6-10.0)
[2021-11-12 06:59] LABS: BLOOD UREA NITROGEN 4 mg/dL (7-18); CALCIUM 7.7 mg/dL (8.5-10.1); CARBON DIOXIDE 18.8 mmol/L (21-32); CHLORIDE 104 mmol/L (98-107); CREATININE 0.64 mg/dL (0.55-1.02); SODIUM 135 mmol/L (136-145); eGFR NON BLACK RACES > 60 (>60)
[2021-11-12] MEDS: CIPRO IV 400 MG PREMIX* 400 MG/200 ML IV.SOLN. IV SCH ×2 (08:36→21:34)
[2021-11-12] MEDS: PROTONIX INJ 40 MG VIAL IVP SCH (08:37)
--- NOTE | 2021-11-12 10:27 | PCM.PROG ---
Progress Note Progress Note for Day of Date of Exam: 11/12/21 Subjective Subjective: Patient seen at bedside, no events overnight. She has been tolerating clears. She states her abdominal pain is a lot better. Denies vomiting or diarrhea. She did have a small BM. She has been ambulating in the room. Labs reviewed Blood Cx: negative Plan: Advance diet to full liquids. Continue hydration and IV abx Cipro and Flagyl. Continue pain control and anti-emetics. Encouraged to ambulate as tolerated. Monitor AM labs. Past Medical Family Social History Past Med/Fam/Surg Hx: No changes since H&P Allergies: Allergies No Known Drug Allergies Allergy (Verified 11/09/21 13:53) Review of Systems ROS: No change since H&P Vital Signs and I&O's Vital Signs: Temperature 98.8 F Pulse Rate [Right Brachial] 74 Pulse Rate [Left] 89 Pulse Rate 96 Respiratory Rate 20 Blood Pressure [Right Arm] 146/70 Blood Pressure 122/82 O2 Sat by Pulse Oximetry 100 Intake and Output: Intake & Output 11/09/21 11/10/21 11/11/21 11/12/21 23:59 23:59 23:59 23:59 Intake Total 100 / 100 200 / 200 4781 / 4781 755 / 755 Output Total 800 / 800 Balance -700 / -700 200 / 200 4781 / 4781 755 / 755 Physical Exam Oriented: Normal Eyes: Normal Ear: Normal Nose: Normal Throat: Normal Respiratory: Normal Cardiovascular: Normal Auscultation: Bowel Sounds: Normal Tenderness: LUQ and Mild; negative Rebound and Rigidity Skin: Normal Musculoskeletal: Normal Psychiatric: Normal Mood Description: Calm Affect: Normal Speech Pattern: Clear and Appropriate Laboratory and Diagnostics Result Diagrams: 11/12/21 06:05 11/12/21 06:05 Labs: 11/09/21 13:03 Blood Blood Culture - Preliminary 11/09/21 12:38 Blood Blood Culture - Preliminary Laboratory WBC 9.4 X10^3/uL (3.6-10.0) 11/12/21 06:05 RBC 4.18 X10^6/uL (3.5-5.4) 11/12/21 06:05 Hgb 11.4 g/dL (12.0-16.0) L 11/12/21 06:05 Hct 35.1 % (36.0-47.0) L 11/12/21 06:05 MCV 84.0 fL (80.0-100.0) 11/12/21 06:05 MCH 27.2 pg (27.0-34.0) 11/12/21 06:05 MCHC 32.3 g/dL (33.0-35.0) L 11/12/21 06:05 RDW 15.2 % (11.6-16.5) 11/12/21 06:05 Plt Count 274 X10^3/uL (150.0-450.0) 11/12/21 06:05 MPV 8.4 fL (7.4-11.0) 11/12/21 06:05 Neut % (Auto) 62.9 % (42.0-75.0) 11/12/21 06:05 Lymph % (Auto) 23.7 % (21.0-51.0) 11/12/21 06:05 [place] % (Auto) 10.3 % (0.0-13.0) 11/12/21 06:05 Eos % (Auto) 2.6 % (0.9-2.9) 11/12/21 06:05 Baso % (Auto) 0.5 % (0.2-1.0) 11/12/21 06:05 Neut # (Auto) 5.9 x10^3/uL (2.2-4.8) H 11/12/21 06:05 Lymph # (Auto) 2.2 X10^3/uL (1.3-2.9) 11/12/21 06:05 [place] # (Auto) 1.0 x10^3/uL (0.3-0.8) H 11/12/21 06:05 Eos # (Auto) 0.2 x10^3/uL (0.0-0.2) 11/12/21 06:05 Baso # (Auto) 0.0 X10^3/uL (0.0-0.1) 11/12/21 06:05 Absolute Nucleated RBC 0.0 /100WBC 11/12/21 06:05 Sodium 135 mmol/L (136-145) L 11/12/21 06:05 Corrected Sodium TNP 11/12/21 06:05 Potassium 3.8 mmol/L (3.5-5.1) 11/12/21 06:05 Chloride 104 mmol/L (98-107) 11/12/21 06:05 Carbon Dioxide 18.8 mmol/L (21-32) L 11/12/21 06:05 BUN 4 mg/dL (7-18) L 11/12/21 06:05 Creatinine 0.64 mg/dL (0.55-1.02) 11/12/21 06:05 Est GFR (MDRD) Af Amer > 60 (>60) 11/12/21 06:05 Est GFR (MDRD) Non-Af > 60 (>60) 11/12/21 06:05 Glucose 71 mg/dL (65-99) 11/12/21 06:05 Calcium 7.7 mg/dL (8.5-10.1) L 11/12/21 06:05 Corrected Calcium 8.8 mg/dL (8.5-10.1) 11/11/21 04:15 Magnesium 2.0 mg/dL (1.7-2.9) 11/11/21 04:15 Total Bilirubin 0.50 mg/dL (0.2-1.0) 11/11/21 04:15 AST 12 Units/L (15-37) L 11/11/21 04:15 ALT 12 Units/L (12-78) 11/11/21 04:15 Alkaline Phosphatase 83 Units/L (46-116) 11/11/21 04:15 Total Protein 6.3 g/dL (6.4-8.2) L 11/11/21 04:15 Albumin 2.4 g/dL (3.4-5.0) L 11/11/21 04:15 Globulin 3.9 g/dL (2.5-4.5) 11/11/21 04:15 Albumin/Globulin Ratio 0.6 Ratio (1.1-2.1) L 11/11/21 04:15 Specimen Type Clean catch urine 11/09/21 11:03 Urine Color Yellow (YELLOW) 11/09/21 11:03 Urine Appearance Hazy (CLEAR) 11/09/21 11:03 Urine pH 5.0 (5.0 - 8.0) 11/09/21 11:03 Ur Specific [place] 1.015 (1.000-1.030) 11/09/21 11:03 Urine Protein 1+ (NEGATIVE) 11/09/21 11:03 Urine Glucose (UA) Negative (NEGATIVE) 11/09/21 11:03 Urine Ketones 2+ (NEGATIVE) 11/09/21 11:03 Urine Blood 2+ (NEGATIVE) 11/09/21 11:03 Urine Nitrite Negative (NEGATIVE) 11/09/21 11:03 Urine Bilirubin Negative (NEGATIVE) 11/09/21 11:03 Urine Urobilinogen Normal (NORMAL) 11/09/21 11:03 Ur Leukocyte Esterase Negative (NEGATIVE) 11/09/21 11:03 Urine RBC 5-10 /HPF (0-3) A 11/09/21 11:03 Urine WBC 0-2 /HPF (0-5) 11/09/21 11:03 Ur Squamous Epith Cells Moderate /HPF (NEGATIVE) 11/09/21 11:03 Urine Bacteria Trace /HPF (NEGATIVE) 11/09/21 11:03 Urine Mucus Moderate /HPF (NEGATIVE) 11/09/21 11:03 Ur Culture Indicated? No/not indicated 11/09/21 11:03 SARS CoV-2 RNA Rapid BRITTANY Negative (NEGATIVE) 11/09/21 12:10 Plan (1) Diverticulitis large intestine: Status: Acute Qualifiers: Diverticulitis bleeding: without bleeding Diverticulitis complication: without perforation or abscess Qualified Code(s): K57.32 - Diverticulitis of large intestine without perforation or abscess without bleeding (2) Abdominal pain: Status: Acute Qualifiers: Abdominal location: left upper quadrant Qualified Code(s): R10.12 - Left upper quadrant pain (3) Hypokalemia: Status: Acute (4) Dehydration: Status: Acute (5) History of colon resection: Status: Acute
[2021-11-13 05:46] LABS: BASOPHILS % (AUTO) 0.4 % (0.2-1.0); EOSINOPHILS # (AUTO) 0.2 x10^3/uL (0.0-0.2); EOSINOPHILS % (AUTO) 2.4 % (0.9-2.9); HEMATOCRIT 36.4 % (36.0-47.0); HEMOGLOBIN 11.9 g/dL (12.0-16.0); LYMPHOCYTES # (AUTO) 1.8 X10^3/uL (1.3-2.9); LYMPHOCYTES % (AUTO) 20.9 % (21.0-51.0); MEAN CORPUSCULAR HEMOGLOBIN 27.2 pg (27.0-34.0); MEAN CORPUSCULAR HGB CONC 32.7 g/dL (33.0-35.0); MEAN CORPUSCULAR VOLUME 83.2 fL (80.0-100.0); MEAN PLATELET VOLUME 8.3 fL (7.4-11.0); MONOCYTES # (AUTO) 0.9 x10^3/uL (0.3-0.8); MONOCYTES % (AUTO) 10.9 % (0.0-13.0); NEUTROPHILS # (AUTO) 5.6 x10^3/uL (2.2-4.8); NEUTROPHILS % (AUTO) 65.4 % (42.0-75.0); RED BLOOD COUNT 4.38 X10^6/uL (3.5-5.4); WHITE BLOOD COUNT 8.6 X10^3/uL (3.6-10.0)
[2021-11-13 05:58] LABS: BLOOD UREA NITROGEN 4 mg/dL (7-18); CALCIUM 8.3 mg/dL (8.5-10.1); CHLORIDE 103 mmol/L (98-107); CREATININE 0.75 mg/dL (0.55-1.02); SODIUM 137 mmol/L (136-145); eGFR NON BLACK RACES > 60 (>60)
[2021-11-13] MEDS: FLAGYL TAB 500 MG PO SCH (05:59)
[2021-11-13] MEDS: NS 1,000 ML IV 1,000 ML IV SCH (06:01)
[2021-11-13 08:56] VITALS: BP 141/67
[2021-11-13] MEDS: CIPRO IV 400 MG PREMIX* 400 MG/200 ML IV.SOLN. IV SCH (09:24)
[2021-11-13] MEDS: K-DUR TAB 20 MEQ PO PRN (09:24)
[2021-11-13] MEDS: PROTONIX INJ 40 MG VIAL IVP SCH (09:24)
--- NOTE | 2021-11-13 10:39 | W.DIS.FURT ---
Summary of Discharge Discharge Summary of Date Date of Exam: 11/13/21 Admission Date Date of Admission: 11/09/21 Admission Diagnosis Hospital Course: Ms Mojica is a 36y/o female with a PMH of recurrent diverticulitis requiring partial sigmoid [place] [address] Nagy presented with worsening left sided abdominal pain. Patient states her symptoms started Sunday and she initially thought it was gas pain. She states the pain is constant and severe, initially was cramping but has gotten worse. She did have some nausea, no vomiting or diarrhea. Denies fever or chills. She did eat some spicy food at a festival prior to her symptom onset. She reports decreased appetite, last meal yesterday. No worsening of pain with eating. Hx of cholecystectomy and . Denies excessive ETOH use, quit smoking 2 years ago. In the ER, CTAP showed diverticulitis, patient was started on IV fluids and antibiotics. Patient was also getting morphine prn for pain control. She was initially kept NPO until her symptoms improved. Her labs were monitored daily and electrolytes replaced as needed. Her diet was gradually advanced to clears and then full liquids. She was tolerating PO intake and was ambulating in the room. She was stable for discha rge and will f/u with PCP as scheduled. Vital Signs: Vital Signs (72 hours) 11/10/21 10:49 11/10/21 12:00 11/10/21 16:00 Temperature 99.1 F 98.3 F Pulse Rate [Right Brachial] 84 79 Respiratory Rate 20 18 20 Blood Pressure [Right Arm] 148/79 135/75 O2 Sat by Pulse Oximetry 100 100 11/10/21 20:00 11/10/21 21:37 11/10/21 22:07 Temperature 98.6 F Pulse Rate [Right Brachial] 76 Respiratory Rate 20 20 20 Blood Pressure [Right Arm] 135/78 O2 Sat by Pulse Oximetry 100 11/11/21 00:00 11/11/21 04:00 11/11/21 05:47 Temperature 97.4 F L 98.7 F Pulse Rate [Right Brachial] 81 78 Respiratory Rate 18 18 20 Blood Pressure [Right Arm] 129/68 137/77 O2 Sat by Pulse Oximetry 100 100 11/11/21 06:17 11/11/21 08:00 11/11/21 12:00 Temperature 98.6 F 98.4 F Pulse Rate [Right Brachial] 82 72 Respiratory Rate 20 18 18 Blood Pressure [Right Arm] 136/74 149/69 O2 Sat by Pulse Oximetry 97 96 11/11/21 16:00 11/11/21 20:00 11/12/21 00:00 Temperature 98.1 F 97.9 F 98.0 F Pulse Rate [Right Brachial] 70 76 71 Respiratory Rate 20 20 18 Blood Pressure [Right Arm] 125/75 161/86 137/87 O2 Sat by Pulse Oximetry 97 100 100 11/12/21 00:01 11/12/21 00:31 11/12/21 04:00 Temperature 98.4 F Pulse Rate [Right Brachial] 75 Respiratory Rate 20 18 18 Blood Pressure [Right Arm] 153/78 O2 Sat by Pulse Oximetry 100 11/12/21 08:00 11/12/21 12:00 11/12/21 16:00 Temperature 98.8 F 98.8 F 98.7 F Pulse Rate [Right Brachial] 74 66 70 Respiratory Rate 20 18 18 Blood Pressure [Right Arm] 146/70 147/71 138/74 O2 Sat by Pulse Oximetry 100 100 100 11/12/21 20:00 11/13/21 00:00 11/13/21 04:00 Temperature 98.7 F 98.1 F 99.1 F Pulse Rate [Right Brachial] 76 75 84 Respiratory Rate 20 20 18 Blood Pressure [Right Arm] 153/93 149/91 147/76 O2 Sat by Pulse Oximetry 100 96 99 11/13/21 08:00 Temperature 98.4 F Pulse Rate [Right Brachial] 74 Respiratory Rate 18 Blood Pressure [Right Arm] 141/67 O2 Sat by Pulse Oximetry 100 Labs: Laboratory Last Values WBC 8.6 X10^3/uL (3.6-10.0) 11/13/21 04:24 RBC 4.38 X10^6/uL (3.5-5.4) 11/13/21 04:24 Hgb 11.9 g/dL (12.0-16.0) L 11/13/21 04:24 Hct 36.4 % (36.0-47.0) 11/13/21 04:24 MCV 83.2 fL (80.0-100.0) 11/13/21 04:24 MCH 27.2 pg (27.0-34.0) 11/13/21 04:24 MCHC 32.7 g/dL (33.0-35.0) L 11/13/21 04:24 RDW 15.0 % (11.6-16.5) 11/13/21 04:24 Plt Count 316 X10^3/uL (150.0-450.0) 11/13/21 04:24 MPV 8.3 fL (7.4-11.0) 11/13/21 04:24 Neut % (Auto) 65.4 % (42.0-75.0) 11/13/21 04:24 Lymph % (Auto) 20.9 % (21.0-51.0) L 11/13/21 04:24 [place] % (Auto) 10.9 % (0.0-13.0) 11/13/21 04:24 Eos % (Auto) 2.4 % (0.9-2.9) 11/13/21 04:24 Baso % (Auto) 0.4 % (0.2-1.0) 11/13/21 04:24 Neut # (Auto) 5.6 x10^3/uL (2.2-4.8) H 11/13/21 04:24 Lymph # (Auto) 1.8 X10^3/uL (1.3-2.9) 11/13/21 04:24 [place] # (Auto) 0.9 x10^3/uL (0.3-0.8) H 11/13/21 04:24 Eos # (Auto) 0.2 x10^3/uL (0.0-0.2) 11/13/21 04:24 Baso # (Auto) 0.0 X10^3/uL (0.0-0.1) 11/13/21 04:24 Absolute Nucleated RBC 0.0 /100WBC 11/13/21 04:24 Sodium 137 mmol/L (136-145) 11/13/21 04:24 Corrected Sodium TNP 11/13/21 04:24 Potassium 3.8 mmol/L (3.5-5.1) 11/13/21 04:24 Chloride 103 mmol/L (98-107) 11/13/21 04:24 Carbon Dioxide 22.0 mmol/L (21-32) 11/13/21 04:24 BUN 4 mg/dL (7-18) L 11/13/21 04:24 Creatinine 0.75 mg/dL (0.55-1.02) 11/13/21 04:24 Est GFR (MDRD) Af Amer > 60 (>60) 11/13/21 04:24 Est GFR (MDRD) Non-Af > 60 (>60) 11/13/21 04:24 Glucose 80 mg/dL (65-99) 11/13/21 04:24 Calcium 8.3 mg/dL (8.5-10.1) L 11/13/21 04:24 Corrected Calcium 8.8 mg/dL (8.5-10.1) 11/11/21 04:15 Magnesium 2.0 mg/dL (1.7-2.9) 11/11/21 04:15 Total Bilirubin 0.50 mg/dL (0.2-1.0) 11/11/21 04:15 AST 12 Units/L (15-37) L 11/11/21 04:15 ALT 12 Units/L (12-78) 11/11/21 04:15 Alkaline Phosphatase 83 Units/L (46-116) 11/11/21 04:15 Total Protein 6.3 g/dL (6.4-8.2) L 11/11/21 04:15 Albumin 2.4 g/dL (3.4-5.0) L 11/11/21 04:15 Globulin 3.9 g/dL (2.5-4.5) 11/11/21 04:15 Albumin/Globulin Ratio 0.6 Ratio (1.1-2.1) L 11/11/21 04:15 Specimen Type Clean catch urine 11/09/21 11:03 Urine Color Yellow (YELLOW) 11/09/21 11:03 Urine Appearance Hazy (CLEAR) 11/09/21 11:03 Urine pH 5.0 (5.0 - 8.0) 11/09/21 11:03 Ur Specific [place] 1.015 (1.000-1.030) 11/09/21 11:03 Urine Protein 1+ (NEGATIVE) 11/09/21 11:03 Urine Glucose (UA) Negative (NEGATIVE) 11/09/21 11:03 Urine Ketones 2+ (NEGATIVE) 11/09/21 11:03 Urine Blood 2+ (NEGATIVE) 11/09/21 11:03 Urine Nitrite Negative (NEGATIVE) 11/09/21 11:03 Urine Bilirubin Negative (NEGATIVE) 11/09/21 11:03 Urine Urobilinogen Normal (NORMAL) 11/09/21 11:03 Ur Leukocyte Esterase Negative (NEGATIVE) 11/09/21 11:03 Urine RBC 5-10 /HPF (0-3) A 11/09/21 11:03 Urine WBC 0-2 /HPF (0-5) 11/09/21 11:03 Ur Squamous Epith Cells Moderate /HPF (NEGATIVE) 11/09/21 11:03 Urine Bacteria Trace /HPF (NEGATIVE) 11/09/21 11:03 Urine Mucus Moderate /HPF (NEGATIVE) 11/09/21 11:03 Ur Culture Indicated? No/not indicated 11/09/21 11:03 SARS CoV-2 RNA Rapid BRITTANY Negative (NEGATIVE) 11/09/21 12:10 Reason For Visit: DIVERTICULITIS, HYPOKALEMIA Discharge Date Discharge Date: 11/13/21 Discharge Diagnosis All Active Problems (Updated 11/21/21 @ 14:30 by Berenice Hartman) Hypokalemia (Acute) History of colon resection (Chronic) Dehydration (Acute) Abdominal pain (Acute) Diverticulitis of large intestine with abscess without bleeding (Acute) Headache (Acute) Plan of Treatment: Continue with present treatment and follow up plan. Pt is to keep follow up appointment as instructed and take medications as ordered. Discharge Medications Discharge Medications: No Known Drug Allergies Allergy (Verified 11/09/21 13:53) CONTINUE taking the following medications NK 11/09/21 [History] New Prescriptions ciprofloxacin HCl 500 mg PO BID 7 Days #14 tab 11/13/21 [Rx] hydrocodone-acetaminophen 1 tab PO Q8H PRN 5 Days #15 tab MDD 3 tabs 11/13/21 [Rx] metronidazole 500 mg PO TID 7 Days #21 tab 11/13/21 [Rx] ondansetron 4 mg PO Q6HR PRN #20 tab 11/13/21 [Rx] Follow up and Referral Follow Up: 1 Week (PCP) Discharge Disposition Discharge Disposition: Home Discharge Condition: Stable Discharge Plan Discharge Plan Hospital Course: Ms Mojica is a 36y/o female with a PMH of recurrent diverticulitis requiring [place] sigm[place] [address] Nagy presented with worsening left sided abdominal pain. Patient states her symptoms started Sunday and she initially thought it was gas pain. She states the pain is constant and severe, initially was cramping but has gotten worse. She did have some nausea, no vomiting or diarrhea. Denies fever or chills. She did eat some spicy food at a festival prior to her symptom onset. She reports decreased appetite, last meal yesterday. No worsening of pain with eating. Hx of cholecystectomy and . Denies excessive ETOH use, quit smoking 2 years ago. In the ER, CTAP showed diverticulitis, patient was started on IV fluids and antibiotics. Patient was also getting morphine prn for pain control. She was initially kept NPO until her symptoms improved. Her labs were monitored daily and electrolytes replaced as needed. Her diet was gradually advanced to clears and then full liquids. She was tolerating PO intake and was ambulating in the room. She was stable for discharge and will f/u with PCP as scheduled. Patient Disposition: 01 HOME, SELF-CARE Condition: Stable Health Concerns: Post Hospitalization: new medications and changes needed to prevent readmission or further decline. Pt educated and given instructions on all concerns. Plan of Treatment: Continue with present treatment and follow up plan. Pt is to keep follow up appointment as instructed and take medications as ordered. Prescription drug monitoring program results: PDMP reviewed and no concerns identified Prescriptions: New ondansetron 4 mg tablet,disintegrating 4 mg PO Q6HR PRN (Reason: nausea and vomiting) Qty: 20 RF: 0 No Action NK RF: 0 Follow ups/Referrals Follow ups/Referrals: Berenice Hartman [STAFF PHYSICIAN] - 1 WEEK Instructions Instructions: Diverticulitis, Full Liquid Diet, Low-Fiber Eating Plan Stand Alone Forms: Excuse From Work or School, Precautions for COVID, [facility], Patient Portal, Social Distancing
== END 2021-11-13 11:23 | disposition home or self-care (01) | DRG 392 ==
LOC: ER 08:06 → MED/SURG 13:23
PROVIDERS: ADMIT Internal Medicine; ATTEND Internal Medicine
DX: E86.0 Dehydration; Z20.822 Contact with and (suspected) exposure to COVID-19; R10.12 Left upper quadrant pain; E87.6 Hypokalemia; Z90.49 Acquired absence of other specified parts of digestive tract; K57.32 Diverticulitis of large intestine without perforation or abscess without bleeding